=== PATIENT | male | born 1965 | race Caucasian/White ===

== ENCOUNTER 2020-06-30 08:42 | Outpatient (REF) | payer BC, SELFPAY ==
[2020-06-30 11:14] LABS: MANUAL DIFF FLAG NO
[2020-06-30 11:21] LABS: Basophils Absolute Auto 0.1 X10*3/uL (0.0-0.2); Basophils Percent Auto 0.8 % (0-2); Eosinophils Absolute Auto 0.5 X10*3/uL (0.0-0.4); Eosinophils Percent Auto 4.6 % (0-4); Hemoglobin 14.6 g/dl (14.0-18.0); Imm Gran Abs Auto 0.02 X10*3/uL (0.00-0.03); Imm Gran Pct Auto 0.2 % (0.0-0.4); Lymphocytes Absolute Auto 1.2 X10*3/uL (1.2-4.9); Lymphocytes Percent Auto 11.8 % (20-40); Mean Corpuscular HGB Conc 33.2 g/dl (31.0-36.0); Mean Corpuscular Hemoglobin 29.1 pg (27.0-33.0); Mean Corpuscular Volume 87.6 fL (80-98); Mean Platelet Volume 9.8 fL (9.4-12.4); Monocytes Absolute Auto 0.8 X10*3/uL (0.1-1.2); Monocytes Percent Auto 7.3 % (2-11); Neutrophils Absolute Auto 7.7 X10*3/uL (2.0-8.3); Neutrophils Percent Auto 75.3 % (45-73); Platelet Count 390 X10*3/uL (160-400); Red Blood Count 5.02 X10*6/uL (4.60-5.80); Red Cell Distribution Width 12.7 % (11.0-16.0); White Blood Count 10.2 X10*3/uL (4.8-10.8)
[2020-06-30 11:36] LABS: Alanine Aminotransferase 30 U/L (0-40); Albumin Level 4.3 g/dL (3.5-5.0); Alkaline Phosphatase 102 U/L (39-117); Aspartate Amino Transferase 18 U/L (5-37); Bilirubin Direct 0.4 mg/dL (0.0-0.5); Bilirubin Total 0.8 mg/dL (0.0-1.0); Blood Urea Nitrogen 12 mg/dL (9-16); Estimated Glomerular Filt Rate > 60
== END 2020-06-30 08:43 | disposition home or self-care (01) ==
LOC: HO.HMGCLDS 08:42
PROVIDERS: PCP Internal Medicine; Visit Provider Physician Assistant
DX: G35 Multiple sclerosis (principal)
CPT/HCPCS: 36415; 80076; 82565; 84520; 85025

== ENCOUNTER 2021-01-15 10:29 | Outpatient (REF) | payer BC, SELFPAY ==
[2021-01-15 11:12] LABS: Estimated Average Glucose 148 mg/dL; Hemoglobin A1c % 6.8 %
[2021-01-15 11:46] LABS: Alanine Aminotransferase 34 U/L (0-40); Albumin Level 4.4 g/dL (3.5-5.0); Alkaline Phosphatase 89 U/L (39-117); Aspartate Amino Transferase 20 U/L (5-37); Bilirubin Direct 0.4 mg/dL (0.0-0.5); Bilirubin Total 1.1 mg/dL (0.0-1.0); Cholesterol 164 mg/dL; Glucose Fasting 109 mg/dL (60-99); HDL Cholesterol 36 mg/dL; LDL Cholesterol Calculated 90 mg/dl; Total Protein 7.1 g/dL (6.5-8.0); Triglycerides 191 mg/dL
[2021-01-15 11:51] LABS: Reflex LDLD? No
== END 2021-01-15 10:30 | disposition home or self-care (01) ==
LOC: HO.LNP 10:29
PROVIDERS: Visit Provider Internal Medicine
DX: E11.9 Type 2 diabetes mellitus without complications (principal); E78.00 Pure hypercholesterolemia, unspecified
CPT/HCPCS: 80061; 80076; 82947; 83036

== ENCOUNTER 2021-01-28 10:00 | Outpatient (REF) | payer BC, SELFPAY ==
[2021-01-28 11:30] LABS: MANUAL DIFF FLAG NO
[2021-01-28 11:41] LABS: Basophils Absolute Auto 0.1 X10*3/uL (0.0-0.2); Basophils Percent Auto 0.9 % (0-2); Eosinophils Absolute Auto 0.4 X10*3/uL (0.0-0.4); Eosinophils Percent Auto 5.8 % (0-4); Hematocrit 44.7 % (42-52); Hemoglobin 14.9 g/dl (14.0-18.0); Imm Gran Abs Auto 0.03 X10*3/uL (0.00-0.03); Imm Gran Pct Auto 0.4 % (0.0-0.4); Lymphocytes Absolute Auto 1.4 X10*3/uL (1.2-4.9); Lymphocytes Percent Auto 18.1 % (20-40); Mean Corpuscular HGB Conc 33.3 g/dl (31.0-36.0); Mean Corpuscular Hemoglobin 28.7 pg (27.0-33.0); Mean Corpuscular Volume 86.1 fL (80-98); Mean Platelet Volume 9.6 fL (9.4-12.4); Monocytes Absolute Auto 0.6 X10*3/uL (0.1-1.2); Monocytes Percent Auto 7.5 % (2-11); Neutrophils Percent Auto 67.3 % (45-73); Platelet Count 393 X10*3/uL (160-400); Red Blood Count 5.19 X10*6/uL (4.60-5.80); Red Cell Distribution Width 12.7 % (11.0-16.0); White Blood Count 7.5 X10*3/uL (4.8-10.8)
[2021-01-28 12:17] LABS: Alanine Aminotransferase 28 U/L (0-40); Albumin Level 4.5 g/dL (3.5-5.0); Alkaline Phosphatase 87 U/L (39-117); Aspartate Amino Transferase 19 U/L (5-37); Bilirubin Direct 0.4 mg/dL (0.0-0.5); Bilirubin Total 1.1 mg/dL (0.0-1.0); Blood Urea Nitrogen 22 mg/dL (9-16); Estimated Glomerular Filt Rate > 60; Total Protein 7.2 g/dL (6.5-8.0)
[2021-01-29 14:21] LABS: Immunoglobulin A 236 mg/dL (47-310); Immunoglobulin G 859 mg/dL (600-1640)
== END 2021-01-28 10:01 | disposition home or self-care (01) ==
LOC: HO.HMGCLDS 10:00
PROVIDERS: PCP Internal Medicine; Visit Provider Physician Assistant
DX: G35 Multiple sclerosis (principal); R94.5 Abnormal results of liver function studies; Z51.81 Encounter for therapeutic drug level monitoring
CPT/HCPCS: 36415; 80076; 82565; 82784; 84520; 85025

== ENCOUNTER 2021-07-14 10:32 | Outpatient (REF) | payer BC, SELFPAY ==
[2021-07-14 10:37] LABS: MANUAL DIFF FLAG NO
[2021-07-14 10:59] LABS: Basophils Absolute Auto 0.1 X10*3/uL (0.0-0.2); Eosinophils Absolute Auto 0.7 X10*3/uL (0.0-0.4); Eosinophils Percent Auto 7.7 % (0-4); Hematocrit 41.7 % (42.0-52.0); Hemoglobin 13.9 g/dl (14.0-18.0); Imm Gran Abs Auto 0.02 X10*3/uL (0.00-0.03); Imm Gran Pct Auto 0.2 % (0.0-0.4); Lymphocytes Absolute Auto 1.2 X10*3/uL (1.2-4.9); Lymphocytes Percent Auto 14.8 % (20-40); Mean Corpuscular HGB Conc 33.3 g/dl (31.0-36.0); Mean Corpuscular Hemoglobin 29.3 pg (27.0-33.0); Mean Corpuscular Volume 87.8 fL (80.0-98.0); Mean Platelet Volume 10.4 fL (9.4-12.4); Monocytes Absolute Auto 0.7 X10*3/uL (0.1-1.2); Monocytes Percent Auto 7.7 % (2-11); Neutrophils Absolute Auto 5.76 x10*3/uL (2.0-8.3); Neutrophils Percent Auto 68.6 % (45-73); Platelet Count 333 X10*3/uL (160-400); Red Blood Count 4.75 X10*6/uL (4.60-5.80); Red Cell Distribution Width 12.6 % (11.0-16.0); White Blood Count 8.4 X10*3/uL (4.8-10.8)
[2021-07-14 11:15] LABS: Estimated Average Glucose 128 mg/dL; Hemoglobin A1c % 6.1 %
[2021-07-14 11:24] LABS: Appearance Urine CLEAR; Color Urine YELLOW; Glucose Urine UA NEG (NEG); Leukocyte Esterase Urine NEG (NEG); Nitrite Urine NEG (NEG); Urine Blood NEG (NEG); Urine Ketones NEG (NEG); Urine Protein NEG (NEG-TRACE)
[2021-07-14 11:41] LABS: Alanine Aminotransferase 23 U/L (0-40); Albumin Level 4.4 g/dL (3.5-5.0); Alkaline Phosphatase 85 U/L (39-117); Anion Gap 13 (12-20); Aspartate Amino Transferase 16 U/L (5-37); Bilirubin Total 0.7 mg/dL (0.0-1.0); Blood Urea Nitrogen 19 mg/dL (9-16); Calcium 9.5 mg/dL (8.4-10.2); Carbon Dioxide 30 mmol/L (22-29); Chloride 102 mmol/L (96-108); Cholesterol 157 mg/dL; Estimated Glomerular Filt Rate > 60; Glucose Fasting 111 mg/dL (60-99); HDL Cholesterol 35 mg/dL; LDL Cholesterol Calculated 91 mg/dl; Potassium 3.9 mmol/L (3.3-5.1); Sodium 141 mmol/L (135-145); Triglycerides 155 mg/dL
[2021-07-14 11:52] LABS: Reflex LDLD? No
[2021-07-14 12:04] LABS: Vitamin D 25-OH Total 51.3 ng/mL (>30)
[2021-07-14 12:08] LABS: PSA,Total (Free>4and<10) 0.47 ng/mL (0.00-4.00)
[2021-07-14 12:15] LABS: Creatinine Urine 113.61 mg/dL; Microalbum/Creatinine Ratio Ur 4.4 ug/mg cr
== END 2021-07-14 10:33 | disposition home or self-care (01) ==
LOC: HO.LNP 10:32
PROVIDERS: Visit Provider Internal Medicine
DX: Z00.00 Encounter for general adult medical examination without abnormal findings (principal); I10 Essential (primary) hypertension; G35 Multiple sclerosis; E78.00 Pure hypercholesterolemia, unspecified; E55.9 Vitamin D deficiency, unspecified; E11.9 Type 2 diabetes mellitus without complications; Z12.5 Encounter for screening for malignant neoplasm of prostate
CPT/HCPCS: 80053; 80061; 81003; 82043; 82306; 83036; 84153; 85025

== ENCOUNTER 2022-01-12 10:21 | Outpatient (REF) | payer BC, SELFPAY ==
[2022-01-12 11:37] LABS: Estimated Average Glucose 137 mg/dL; Hemoglobin A1c % 6.4 %
[2022-01-12 11:57] LABS: Alanine Aminotransferase 25 U/L (0-40); Albumin Level 4.1 g/dL (3.5-5.0); Alkaline Phosphatase 81 U/L (39-117); Aspartate Amino Transferase 16 U/L (5-37); Bilirubin Direct 0.3 mg/dL (0.0-0.5); Bilirubin Total 0.7 mg/dL (0.0-1.0); Cholesterol 168 mg/dL; Glucose Fasting 124 mg/dL (60-99); HDL Cholesterol 32 mg/dL; LDL Cholesterol Calculated 99 mg/dl; Total Protein 6.9 g/dL (6.5-8.0); Triglycerides 188 mg/dL
[2022-01-12 12:10] LABS: Reflex LDLD? No
== END 2022-01-12 10:22 | disposition home or self-care (01) ==
LOC: HO.LNP 10:21
PROVIDERS: PCP Internal Medicine; Visit Provider Internal Medicine
DX: E78.00 Pure hypercholesterolemia, unspecified (principal); E11.9 Type 2 diabetes mellitus without complications
CPT/HCPCS: 80061; 80076; 82947; 83036

== ENCOUNTER 2022-07-22 10:25 | Outpatient (REF) | payer OTHER, SELFPAY ==
[2022-07-22 10:31] LABS: MANUAL DIFF FLAG NO
[2022-07-22 11:09] LABS: Appearance Urine Clear; Basophils Percent Auto 0.4 % (0-2); Color Urine Yellow; Eosinophils Absolute Auto 0.5 X10*3/uL (0.0-0.4); Eosinophils Percent Auto 6.5 % (0-4); Glucose Urine UA Negative (Negative); Hematocrit 41.7 % (42.0-52.0); Hemoglobin 13.9 g/dl (14.0-18.0); Imm Gran Abs Auto 0.03 X10*3/uL (0.00-0.03); Imm Gran Pct Auto 0.4 % (0.0-0.4); Leukocyte Esterase Urine Negative (Negative); Lymphocytes Absolute Auto 1.5 X10*3/uL (1.2-4.9); Lymphocytes Percent Auto 22.2 % (20-40); Mean Corpuscular HGB Conc 33.3 g/dl (31.0-36.0); Mean Corpuscular Hemoglobin 28.9 pg (27.0-33.0); Mean Corpuscular Volume 86.7 fL (80.0-98.0); Mean Platelet Volume 9.8 fL (9.4-12.4); Monocytes Absolute Auto 0.7 X10*3/uL (0.1-1.2); Monocytes Percent Auto 10.4 % (2-11); Neutrophils Absolute Auto 4.2 x10*3/uL (2.0-8.3); Neutrophils Percent Auto 60.1 % (45-73); Nitrite Urine Negative (Negative); PH 5.5 (5.0-9.0); Platelet Count 358 X10*3/uL (160-400); Red Blood Count 4.81 X10*6/uL (4.60-5.80); Red Cell Distribution Width 12.7 % (11.0-16.0); Specific Gravity - Urine 1.025 (1.005-1.025); Urine Blood Negative (Negative); Urine Ketones Trace mg/dL (Negative); Urine Protein Negative (Neg-Trace); White Blood Count 6.9 X10*3/uL (4.8-10.8)
[2022-07-22 11:12] LABS: Alanine Aminotransferase 28 U/L (0-40); Albumin Level 4.2 g/dL (3.5-5.0); Alkaline Phosphatase 78 U/L (39-117); Anion Gap 16 (12-20); Aspartate Amino Transferase 16 U/L (5-37); Bacteria Urine None Seen (None Seen); Bilirubin Total 0.6 mg/dL (0.0-1.0); Blood Urea Nitrogen 17 mg/dL (9-16); Calcium 8.8 mg/dL (8.4-10.2); Carbon Dioxide 27 mmol/L (22-29); Chloride 103 mmol/L (96-108); Cholesterol 194 mg/dL; Estimated Glomerular Filt Rate > 60; Glucose Fasting 148 mg/dL (60-99); HDL Cholesterol 33 mg/dL; Hyaline Casts Urine 0-2 /LPF (0-2); LDL Cholesterol Calculated 99 mg/dl; Potassium 3.8 mmol/L (3.3-5.1); RBC Urine 0-2 /HPF (0-2); Sodium 142 mmol/L (135-145); Squamous Epithelial Cell Urine 0-2 /HPF (0-2); Total Protein 6.9 g/dL (6.5-8.0); Triglycerides 313 mg/dL; WBC Urine 0-5 /HPF (0-5)
[2022-07-22 11:50] LABS: PSA,Total (Free>4and<10) 0.68 ng/mL (0.00-4.00)
[2022-07-22 13:27] LABS: Vitamin D 25-OH Total 46.7 ng/mL (>30)
== END 2022-07-22 10:26 | disposition home or self-care (01) ==
LOC: HO.LNP 10:25
PROVIDERS: Visit Provider Internal Medicine
DX: Z00.00 Encounter for general adult medical examination without abnormal findings (principal); Z12.5 Encounter for screening for malignant neoplasm of prostate; I10 Essential (primary) hypertension; G35 Multiple sclerosis; E55.9 Vitamin D deficiency, unspecified; E78.00 Pure hypercholesterolemia, unspecified
CPT/HCPCS: 80053; 80061; 81001; 82306; 84153; 85025

== ENCOUNTER 2023-01-28 09:18 | Outpatient (REF) | payer OTHER, SELFPAY ==
[2023-01-28 10:33] LABS: Estimated Average Glucose 134 mg/dL; Hemoglobin A1c % 6.3 %
[2023-01-28 10:37] LABS: Alanine Aminotransferase 27 U/L (0-40); Albumin Level 4.3 g/dL (3.5-5.0); Alkaline Phosphatase 98 U/L (39-117); Aspartate Amino Transferase 19 U/L (5-37); Bilirubin Direct 0.2 mg/dL (0.0-0.5); Bilirubin Total 0.8 mg/dL (0.0-1.0); Cholesterol 140 mg/dL; Glucose Fasting 119 mg/dL (60-99); HDL Cholesterol 34 mg/dL; LDL Cholesterol Calculated 84 mg/dl; Total Protein 6.9 g/dL (6.5-8.0); Triglycerides 114 mg/dL
[2023-01-28 11:38] LABS: Reflex LDLD? No
== END 2023-01-28 09:19 | disposition home or self-care (01) ==
LOC: HO.LNP 09:18
PROVIDERS: Visit Provider Internal Medicine
DX: E78.00 Pure hypercholesterolemia, unspecified (principal); E11.9 Type 2 diabetes mellitus without complications
CPT/HCPCS: 80061; 80076; 82947; 83036

== ENCOUNTER 2023-09-30 13:42 | Outpatient (AMB) | payer OTHER, SELFPAY ==
--- NOTE | 2023-09-30 13:49 | MHC.PC.OV ---
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 Required: No Accompanied by: Self / Same As Patient Allergies lisinopril [LISINOPRIL] Allergy (Mild, Verified 09/30/23 13:53) SCRATCHY THROAT teriflunomide Allergy (Mild, Verified 09/30/23 13:53) Rash Medication List - Last Reconciled 09/30/23 by Erlinda Sheest MD atorvastatin 40 mg PO DAILY bupropion HCl 150 mg PO QAM cholecalciferol (vitamin D3) 4,000 units PO DAILY citalopram 40 mg PO DAILY irbesartan-hydrochlorothiazide 150-12.5 mg 0.5 tabs PO DAILY melatonin 5 mg PO BEDTIME PRN metformin 500 mg PO BID ocrelizumab (Ocrevus) 600 mg IV [id number] ocrelizumab (Ocrevus) 600 mg IV P0UTIAIL Tobacco use date assessed: 09/30/23 Dental Screening Dental Screen Date: 09/30/23 Did you have a dental visit in the last 12 months?: No Did you have a dental problem in the last 6 months where you did not have access to dental care?: No Was dental information given to patient?: Yes HPI New patient-req physical HPI Details 58-year-old obese male with a history of relapsing remitting multiple sclerosis diabetes mellitus hypertension hypercholesterolemia coming in for the 1st time. Patient follows up with Dr. Dey and a treated with Breanna now on Ocrevus. Last blood work showing LDL of 84 A1c of 6.12 Jan 2023. vasovagal when giving blood . buzz ing 2 months , walking up stairs 6 months sob. R foot drop, , neuropathy R leg, double vision. ' [facility] Medical History (Updated 09/30/23 @ 19:02 by Erlinda Sheets MD) Esophageal bleed, non-variceal Social History (Updated 09/30/23 @ 14:16 by Erlinda Sheets MD) Housing: House Alcohol intake: never Patient Tobacco Use Status: Never used Tobacco e-Cigarette/Vaping Use: Never Used service: No Current occupational status: retired and disabled Cognitive needs: No Hearing needs: No Vision needs: Yes Questionnaire PHQ-9 Over the last 2 weeks, how often have you been bothered by any of the following problems? 1. Little interest or pleasure in doing things: nearly every day 2. Feeling down, depressed, or hopeless: more than half the days 3. Trouble falling or staying asleep, or sleeping too much: nearly every day 4. Feeling tired or having little energy: nearly every day 5. Poor appetite or overeating: several days 6. Feeling bad about yourself - or that you are a failure or have let yourself or your family down: several days 7. Trouble concentrating on things, such as reading the newspaper or watching television: more than half the days 8. Moving or speaking so slowly that other people could have noticed. Or the opposite - being so fidgety or restless that you have been moving around a lot more than usual: nearly every day 9. Thoughts that you would be better off or of hurting yourself in some way: several days Total score: 19 Depression Screening Interpretation: Positive Depression Screening Done: Yes 54561 - PHQ-9 Billing: Yes Source: Developed by Drs. Esvin Roman, Denise Zarate, Nam Ku and colleagues, with an educational jose francisco from [employer]. Thrive Questionnaire Date Thrive assessed: 09/30/23 I am a: Patient What is your living situation today?: I have a steady place to live Within the past 12 months, did the food you bought not last and you didn't have the money to get more?: Never true Within the past 12 months, did you worry whether your food would run out before you got money to buy more?: Never true Do you have trouble paying for medicines?: No Do you have trouble getting transportation to medical appointments?: No Do you have trouble paying your heating and electricity bill?: No Do you have trouble taking care of your child, family member or friend?: No Do you have trouble with day-to-day activities such as bathing, preparing meals, shopping, managing finances, etc.?: No Are you currently unemployed and looking for a job?: No Are you interested in more education?: No Please select the resources that you would like help with: None Currently or been in a relationship where the following occur: no concerns reported THRIVE Score: 0 AUDIT C Alcohol Use Questionnaire (AUDIT-C) 1. How often do you have a drink containing alcohol?: Never 3. How often do you have six or more drinks on one occasion?: Never Total Score: 0 NISHA-7 AMB Questionnaire NISHA-7 Date NISHA - 7 assessed: 09/30/23 Feeling nervous, anxious, or on edge: 3 = Nearly every day Not being able to stop or control worryin = Several days Worrying too much about different things: 2 = More than half the days Trouble relaxin = More than half the days Being so restless that it is hard to sit still: 2 = More than half the days Becoming easily annoyed or irritable: 3 = Nearly every day Feeling afraid as if something awful might happen: 1 = Several days Total NISHA-7 score (0-4 normal; 5-9 mild; 10-14 moderate; 15-21 severe): 14 Source: Developed by Drs. Esvin Roman, Denise Zarate, Nam Ku and colleagues, with an educational jose francisco from [employer]. NISHA-7 Assessment Billing NISHA-7 Assessment Tool: NISHA-7 Assessment 62822 Review of Systems Const Denies poor appetite and Denies weakness Eyes Denies no additional complaints ENT Reports Normal hearing present, Denies dizziness, Denies nasal congestion, Denies tinnitus and Denies sore throat Card Denies chest pain, Denies syncope, Denies rapid heart rate and Denies dyspnea Resp Denies cough and Denies dyspnea GI Denies change in stool character, Reports constipation, Denies diarrhea, Denies nausea and Denies vomiting Denies dysuria and Denies urinary frequency Neuro Reports Normal hearing present, Denies confusion, Denies dizziness, Denies syncope and Denies weakness Psych Denies confusion Physical exam (Primary Care) Vital Signs: Last Vital Signs Pulse 75 09/30/23 13:50 BP 120/82 09/30/23 13:50 Pulse Ox 95 09/30/23 13:50 Oxygen Delivery Method Room Air 09/30/23 13:50 BMI result Body Mass Index 31.6 Tobacco/Smoking Status: Tobacco use Status Tobacco use date assessed 09/30/23 09/30/23 14:00 Patient Tobacco Use Status Never used Tobacco 09/30/23 14:16 e-Cigarette/Vaping Use Never Used 09/30/23 14:16 PHQ-9: PHQ-9 Score PHQ-9: Total score 09/30/23 18:59 Depression Screening Interpretation: Positive Thrive Assessment: Date of Thrive Assessment Date Thrive assessed 09/30/23 09/30/23 14:04 Currently or been in a relationship where the following occur: no concerns reported Const General: No confusion Orientation/consciousness: No confusion HENMT Head: Yes normocephalic Ears: external ears normal and TM's normal bilaterally Face and sinus: Yes normal facial exam Mouth: moist mucous membranes Throat: Yes tonsils normal Eyes Conjunctivae: conjunctivae normal Pupils: Equal, round and reactive pupils present and Pupil accommodation reflex normal Direct Ophthalmoscopy: normal light reflex Neck Neck: No lymphadenopathy Thyroid: Thyroid normal Chest Chest palpation & inspection: normal inspection of the chest Resp Effort & Inspection: normal respiratory effort and no audible wheezes Auscultation: clear to auscultation bilaterally, no crackles, no wheezes and lung sounds not diminished Cardio Rate: regular rate Rhythm: regular rhythm Peripheral pulses: radial pulses present and dorsalis pedis present GI Other: guaiac stools negative prostrate N Palpation (GI): no masses Auscultation: normal bowel sounds and normoactive bowel sounds Male General Exam: Yes normal external exam Skin General skin exam: no rashes or lesions noted Rashes: no rashes Neuro Other: R foot cannot dorsiflex General: No confusion Cranial nerves: Yes Equal, round and reactive pupils present and Yes Normal hearing present Cognition (Neuro): normal cognition Gait exam (Neuro): Normal gait present Motor exam (neuro): 5/5 motor strength present throughout Deep tendon reflexes (DTR's): Right brachioradialis reflex intensity grade: 2+, Left brachioradialis reflex intensity grade: 2+, Right patellar reflex intensity grade: 2+ and Left patellar reflex intensity grade: 2+ Extrem Other: pedal pulses good , pinprick L Normal R has areas of sensory deficit General: No edema Results AMB Hemoglobin A1c AMB Hemoglobin A1c 7.0 % Last Edit by CROW Woodruff on 09/30/23 14:15 Immunizations Boostrix Tdap 2.5 Lf unit-8 mcg-5 Lf/0.5 mL intramuscular syringe Performing Provider: Erlinda Sheets MD [facility] Administered by: CROW Woodruff on 09/30/23 15:27 Dose Route Admin Location Dispensed Lot Number Expiration Date NDC [employer] 0.5 mL IM Left Deltoid 0.5 mL [id number] 08/17/25 04258-015-28 [employer] VIS Given Date VIS Provided VIS Publication Date 09/30/23 Single Vaccine 21 Eligibility Eligibility Date Funding Source Not [facility] Eligible 09/30/23 Private Results Reviewed Results Reviewed: Laboratory Last Values Hgb A1c (Clinic) 7.0 % (4.0-6.0) H 09/30/23 14:15 Assessment and Plan Assessment & Plan (1) Dysthymia: Comment: [facility] Code(s): F34.1 - Dysthymic disorder Plan: Referral to [facility] and continuing with present medication (2) Type 2 diabetes mellitus with hyperglycemia: Code(s): E11.65 - Type 2 diabetes mellitus with hyperglycemia Qualifiers: 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 Hemoglobin A1c goal of less than 6.5 (3) Hypertension: Code(s): I10 - Essential (primary) hypertension Qualifiers: Hypertension type: primary hypertension Qualified Code(s): I10 - Essential (primary) hypertension Plan: Continue with blood pressure medication. Decrease salt intake and exercise (4) Hypercholesterolemia: Code(s): E78.00 - Pure hypercholesterolemia, unspecified Plan: Avoid fried foods, chicken skin, eggs, butter margarine, pastries and meat. Be it pork or beef they have a lot of cholesterol LDL goal of less than 100 and triglyceride of less than 150. January 2023 last blood work (5) Relapsing remitting multiple sclerosis: Code(s): G35 - Multiple sclerosis Plan: Continue follow-up with Neurology. On Ocrevus (6) Obstructive sleep apnea: Comment: cannot tolerate CPAP Code(s): G47.33 - Obstructive sleep apnea (adult) (pediatric) Plan: Discussed importance of treating obstructive sleep apnea and will refer to sleep Medicine (7) Colon cancer screening: Code(s): Z12.11 - Encounter for screening for malignant neoplasm of colon Plan: Cologuard tested requested. Colonoscopy declined (8) Tinnitus: Code(s): H93.19 - Tinnitus, unspecified ear Qualifiers: Laterality: bilateral Qualified Code(s): H93.13 - Tinnitus, bilateral Plan: Referral for hearing test Orders: Orders AMB Hemoglobin A1c Today E11.65 - Type 2 diabetes mellitus with hyperglycemia TDaP Immunization Today Z23 - Encounter for immunization Referrals Sleep Medicine Referral G47.33 - Obstructive sleep apnea (adult) (pediatric) Speech and Hearing Referral H93.19 - Tinnitus, unspecified ear Psychiatry Referral F34.1 - Dysthymic disorder Ophthalmology Referral E11.65 - Type 2 diabetes mellitus with hyperglycemia Cologuard Test Z12.11 - Encounter for screening for malignant neoplasm of colon Coding Level of Care Code New Pt Prev Care 40-64y(04649) Diagnoses Dysthymia F34.1 Type 2 diabetes mellitus with hyperglycemia, without long-term current use of insulin E11.65 Diabetes mellitus group home insulin use: without group home use Primary hypertension I10 Hypertension type: primary hypertension Hypercholesterolemia E78.00 Relapsing remitting multiple sclerosis G35 Obstructive sleep apnea G47.33 Colon cancer screening Z12.11 Tinnitus of both ears H93.13 Laterality: bilateral Additional Codes NISHA-7 Assessment Billing - NISHA-7 Assessment Tool: NISHA-7 Assessment 01800 ([id number])
[2023-09-30 13:50] VITALS: BP 120/82; PULSE 75; O2SAT 95; BMI 31.6
== END 2023-09-30 14:50 | disposition home or self-care (01) ==
PROVIDERS: PCP Internal Medicine; Visit Provider Internal Medicine
DX: Z00.00 Encounter for general adult medical examination without abnormal findings (principal); E11.65 Type 2 diabetes mellitus with hyperglycemia; G35 Multiple sclerosis; F34.1 Dysthymic disorder; Z23 Encounter for immunization; I10 Essential (primary) hypertension; E78.00 Pure hypercholesterolemia, unspecified; G47.33 Obstructive sleep apnea (adult) (pediatric); H93.13 Tinnitus, bilateral
CPT/HCPCS: 83036; 90471; 90715; 96127; 99386

== ENCOUNTER 2023-11-28 12:55 | Outpatient (REF) | payer OTHER, SELFPAY | END 2023-11-28 12:56 | disposition home or self-care (01) | LOC: HO.SH 12:55 | PROVIDERS: PCP Internal Medicine; Visit Provider Internal Medicine | DX: Z13.89 Encounter for screening for other disorder (principal) ==

== ENCOUNTER 2023-12-01 12:47 | Outpatient (REF) | payer OTHER, SELFPAY | END 2023-12-01 12:48 | disposition home or self-care (01) | LOC: HO.SH 12:47 | PROVIDERS: Visit Provider Internal Medicine | DX: Z01.118 Encounter for examination of ears and hearing with other abnormal findings (principal); H90.3 Sensorineural hearing loss, bilateral; H93.13 Tinnitus, bilateral | CPT/HCPCS: 92557; 92567; 92588 ==

== ENCOUNTER 2024-01-11 08:03 | Outpatient (AMB) | payer OTHER, SELFPAY ==
[2024-01-11 08:08] VITALS: BP 112/70; PULSE 84; O2SAT 98; BMI 31.2
--- NOTE | 2024-01-11 08:08 | MHC.PC.OV ---
Vital Signs 01/11/24 08:08 Height 5 ft 8 in Weight 205 lb BMI 31.2 BP 112/70 Blood Pressure Location Lt brachial Position Sitting Pulse 84 Pulse Source Pulse Oximeter Pulse Oximetry (%) 98 Oxygen Delivery Method Room Air Intake Visit Reasons: DM Allergies lisinopril [LISINOPRIL] Allergy (Mild, Verified 01/11/24 08:09) SCRATCHY THROAT teriflunomide Allergy (Mild, Verified 01/11/24 08:09) Rash Tobacco use date assessed: 01/11/24 Dental Screening Dental Screen Date: 01/11/24 Did you have a dental visit in the last 12 months?: Yes Did you have a dental problem in the last 6 months where you did not have access to dental care?: No Was dental information given to patient?: Patient has dentist HPI DM HPI Details 58-year-old obese male with diabetes mellitus hypertension hypercholesterolemia multiple sclerosis obstructive sleep apnea coming in for follow-up. Last seen in September 2023 patient was advised to use Cologuard test. This was done in December 30-patient did have a hearing test. Received also YUE I can notes. fal in oct R chest pain better has not botthere, no sycnope , no sob. R achilles pain 2 weeks ago states has been building a shed - seen neuro - was given AFO brace and is better, ussing a cane to walk [facility] Medical History (Updated 01/11/24 @ 08:19 by Erlinda Sheets MD) Tinnitus Colon cancer screening Esophageal bleed, non-variceal Social History (Updated 09/30/23 @ 14:16 by Erlinda Sheets MD) Housing: House Alcohol intake: never Patient Tobacco Use Status: Never used Tobacco Tobacco use type: Cigarette e-Cigarette/Vaping Use: Never Used Second Hand Smoke Exposure: No service: No Current occupational status: retired and disabled Cognitive needs: No Hearing needs: No Vision needs: Yes Questionnaire PHQ-9 Over the last 2 weeks, how often have you been bothered by any of the following problems? 1. Little interest or pleasure in doing things: nearly every day 2. Feeling down, depressed, or hopeless: more than half the days 3. Trouble falling or staying asleep, or sleeping too much: nearly every day 4. Feeling tired or having little energy: nearly every day 5. Poor appetite or overeating: several days 6. Feeling bad about yourself - or that you are a failure or have let yourself or your family down: several days 7. Trouble concentrating on things, such as reading the newspaper or watching television: more than half the days 8. Moving or speaking so slowly that other people could have noticed. Or the opposite - being so fidgety or restless that you have been moving around a lot more than usual: nearly every day 9. Thoughts that you would be better off or of hurting yourself in some way: several days Total score: 19 Depression Screening Interpretation: Positive Depression Screening Done: Yes 83219 - PHQ-9 Billing: Yes Source: Developed by Drs. Esvin Roman, Denise Zarate, Nam Ku and colleagues, with an educational jose francisco from [employer]. Thrive Questionnaire Date Thrive assessed: 01/11/24 I am a: Patient What is your living situation today?: I have a steady place to live Within the past 12 months, did the food you bought not last and you didn't have the money to get more?: Never true Within the past 12 months, did you worry whether your food would run out before you got money to buy more?: Never true Do you have trouble paying for medicines?: No Do you have trouble getting transportation to medical appointments?: No Do you have trouble paying your heating and electricity bill?: No Do you have trouble taking care of your child, family member or friend?: No Do you have trouble with day-to-day activities such as bathing, preparing meals, shopping, managing finances, etc.?: No Are you currently unemployed and looking for a job?: No Are you interested in more education?: No Please select the resources that you would like help with: None Currently or been in a relationship where the following occur: no concerns reported THRIVE Score: 0 AUDIT C Alcohol Use Questionnaire (AUDIT-C) 1. How often do you have a drink containing alcohol?: Never 3. How often do you have six or more drinks on one occasion?: Never Total Score: 0 NISHA-7 AMB Questionnaire NISHA-7 Date NISHA - 7 assessed: 01/11/24 Feeling nervous, anxious, or on edge: 3 = Nearly every day Not being able to stop or control worryin = Several days Worrying too much about different things: 2 = More than half the days Trouble relaxin = More than half the days Being so restless that it is hard to sit still: 2 = More than half the days Becoming easily annoyed or irritable: 3 = Nearly every day Feeling afraid as if something awful might happen: 1 = Several days Total NISHA-7 score (0-4 normal; 5-9 mild; 10-14 moderate; 15-21 severe): 14 Source: Developed by Drs. Esvin Roman, Denise Zarate, Nam Ku and colleagues, with an educational jose francisco from [employer]. NISHA-7 Assessment Billing NISHA-7 Assessment Tool: NISHA-7 Assessment 79061 Fall Risk Assessment Fall Risk Assessment Fall risk assessment: 1 Fall in past year ([place]ell in park. Was assessed by EMT there. Did not go to ED. ) Physical exam (Primary Care) Vital Signs: Last Vital Signs Resp 84 H 01/11/24 08:08 BP 112/70 01/11/24 08:08 Pulse Ox 98 01/11/24 08:08 Oxygen Delivery Method Room Air 01/11/24 08:08 BMI result Body Mass Index 31.2 Tobacco/Smoking Status: Tobacco use Status Tobacco use date assessed 01/11/24 01/11/24 08:12 Patient Tobacco Use Status Never used Tobacco 01/11/24 08:12 Tobacco use type Cigarette 01/11/24 08:18 e-Cigarette/Vaping Use Never Used 01/11/24 08:12 PHQ-9: PHQ-9 Score PHQ-9: Total score 19 01/11/24 08:23 Depression Screening Interpretation: Positive Thrive Assessment: Date of Thrive Assessment Date Thrive assessed 01/11/24 01/11/24 08:12 Currently or been in a relationship where the following occur: no concerns reported Const General: alert; No acute distress Eyes Conjunctivae: conjunctivae normal Resp Auscultation: clear to auscultation bilaterally Cardio Rate: regular rate Rhythm: regular rhythm GI Inspection: Yes normal to inspection Extrem Other: Patient does have an AFO brace on the right ankle General: No edema Results AMB Hemoglobin A1c AMB Hemoglobin A1c 6.4 % Last Edit by Francine rBiceño CMA on 01/11/24 08:23 Results Reviewed Results Reviewed: Laboratory Last Values Hgb A1c (Clinic) 6.4 % (4.0-6.0) H 01/11/24 08:12 Assessment and Plan Assessment & Plan (1) Type 2 diabetes mellitus with hyperglycemia: Code(s): E11.65 - Type 2 diabetes mellitus with hyperglycemia Qualifiers: Diabetes mellitus senior living insulin use: without senior living use Qualified Code(s): E11.65 - Type 2 diabetes mellitus with hyperglycemia Plan: Decrease the amount of carbohydrate intake, pasta, bread, rice and potatoes are all sugar and that is aside from all the sweet stuff, remember that fruits are good but they are Sweet also. Hemoglobin A1c goal of less than 6.5. Patient on metformin 500 mg twice a day (2) Hypertension: Code(s): I10 - Essential (primary) hypertension Qualifiers: Hypertension type: primary hypertension Qualified Code(s): I10 - Essential (primary) hypertension Plan: Continue with blood pressure medication. Decrease salt intake and exercise on irbesartan hydrochlorothiazide 150/12.5 mg half a tablet once a day (3) Hypercholesterolemia: Code(s): E78.00 - Pure hypercholesterolemia, unspecified Plan: Avoid fried foods, chicken skin, eggs, butter margarine, pastries and meat. Be it pork or beef they have a lot of cholesterol LDL goal of less than 100 and triglyceride of less than 150 on atorvastatin 40 mg blood work requested. (4) Dysthymia: Comment: [facility] Code(s): F34.1 - Dysthymic disorder Plan: Continue with counseling and therapy on Celexa 40 mg once a day (5) Relapsing remitting multiple sclerosis: Code(s): G35 - Multiple sclerosis Plan: Patient is on Ocrevus but have not received any notes. He does follow-up. Orders: Orders AMB Hemoglobin A1c Today Z13.9 - Encounter for screening, unspecified Complete Blood Count Auto Diff Today E11.65 - Type 2 diabetes mellitus with hyperglycemia Comprehensive Met. Panel Today E11.65 - Type 2 diabetes mellitus with hyperglycemia Microalbumin, Random (w Creat) Today E11.65 - Type 2 diabetes mellitus with hyperglycemia Free T4 (Free Thyroxine) Today E11.65 - Type 2 diabetes mellitus with hyperglycemia Lipid Panel Today E11.65 - Type 2 diabetes mellitus with hyperglycemia, E78.00 - Pure hypercholesterolemia, unspecified Hemoglobin A1c Today E11.65 - Type 2 diabetes mellitus with hyperglycemia UA w Microscopic Today E11.65 - Type 2 diabetes mellitus with hyperglycemia Creatinine Urine Today E11.65 - Type 2 diabetes mellitus with hyperglycemia Thyroid Stimulating Hormone Today E11.65 - Type 2 diabetes mellitus with hyperglycemia Vitamin B12 and Folate Today E11.65 - Type 2 diabetes mellitus with hyperglycemia Prostate Specific Antigen Scr Today E11.65 - Type 2 diabetes mellitus with hyperglycemia Coding Level of Care Code Est Pt Level 4 (91689) Diagnoses Type 2 diabetes mellitus with hyperglycemia, without long-term current use of insulin E11.65 Diabetes mellitus manager intermediate insulin use: without senior living use Primary hypertension I10 Hypertension type: primary hypertension Hypercholesterolemia E78.00 Dysthymia F34.1 Relapsing remitting multiple sclerosis G35 Additional Codes NISHA-7 Assessment Billing - NISHA-7 Assessment Tool: NISHA-7 Assessment 56099 ([id number])
== END 2024-01-11 08:35 | disposition home or self-care (01) ==
PROVIDERS: PCP Internal Medicine; Visit Provider Internal Medicine
DX: E11.65 Type 2 diabetes mellitus with hyperglycemia (principal); G35 Multiple sclerosis; I10 Essential (primary) hypertension; E78.00 Pure hypercholesterolemia, unspecified; F34.1 Dysthymic disorder
CPT/HCPCS: 83036; 99214

== ENCOUNTER 2024-01-11 08:41 | Outpatient (REF) | payer OTHER, SELFPAY ==
[2024-01-11 09:06] LABS: MANUAL DIFF FLAG NO
[2024-01-11 09:14] LABS: Basophils Absolute Auto 0.1 X10*3/uL (0.0-0.2); Basophils Percent Auto 0.8 % (0-2); Eosinophils Absolute Auto 0.6 X10*3/uL (0.0-0.4); Eosinophils Percent Auto 6.4 % (0-4); Hematocrit 45.6 % (42.0-52.0); Hemoglobin 15.2 g/dl (14.0-18.0); Imm Gran Abs Auto 0.03 X10*3/uL (0.00-0.03); Imm Gran Pct Auto 0.3 % (0.0-0.4); Lymphocytes Absolute Auto 1.4 X10*3/uL (1.2-4.9); Lymphocytes Percent Auto 14.2 % (20-40); Mean Corpuscular HGB Conc 33.3 g/dl (31.0-36.0); Mean Corpuscular Hemoglobin 28.8 pg (27.0-33.0); Mean Corpuscular Volume 86.4 fL (80.0-98.0); Mean Platelet Volume 8.9 fL (9.4-12.4); Monocytes Absolute Auto 0.7 X10*3/uL (0.1-1.2); Monocytes Percent Auto 7.6 % (2-11); Neutrophils Absolute Auto 6.8 x10*3/uL (2.0-8.3); Neutrophils Percent Auto 70.7 % (45-73); Platelet Count 375 X10*3/uL (160-400); Red Blood Count 5.28 X10*6/uL (4.60-5.80); Red Cell Distribution Width 13.1 % (11.0-16.0); White Blood Count 9.6 X10*3/uL (4.8-10.8)
[2024-01-11 09:23] LABS: Estimated Average Glucose 143 mg/dL; Hemoglobin A1c % 6.6 % (<6.0)
[2024-01-11 09:56] LABS: Alanine Aminotransferase 28 U/L (0-40); Albumin Level 4.3 g/dL (3.5-5.0); Alkaline Phosphatase 99 U/L (39-117); Anion Gap 14 (12-20); Aspartate Amino Transferase 17 U/L (5-37); Bilirubin Total 0.5 mg/dL (0.0-1.0); Blood Urea Nitrogen 14 mg/dL (9-16); Calcium 9.6 mg/dL (8.4-10.2); Carbon Dioxide 27 mmol/L (22-29); Chloride 101 mmol/L (96-108); Cholesterol 148 mg/dL (<200); Estimated Glomerular Filt Rate > 60; Glucose Random 138 mg/dL (60-115); HDL Cholesterol 32 mg/dL (>40); LDL Cholesterol Calculated 77 mg/dL (<100); Potassium 4.2 mmol/L (3.3-5.1); Sodium 138 mmol/L (135-145); Total Protein 7.4 g/dL (6.5-8.0); Triglycerides 195 mg/dL (<150)
[2024-01-11 10:14] LABS: Free T4 (Free Thyroxine) 0.76 ng/dL (0.71-1.85); Thyroid Stimulating Hormone 1.74 uIU/mL (0.32-4.0)
[2024-01-11 10:37] LABS: Folate 4.7 ng/mL (> or = 4.0); Prostate Specific Antigen Scr 0.65 ng/mL (<0.05-4.0); Vitamin B12 384 pg/mL (200-900)
== END 2024-01-11 08:42 | disposition home or self-care (01) ==
LOC: HO.LAB 08:41
PROVIDERS: PCP Internal Medicine; Visit Provider Internal Medicine
DX: E11.65 Type 2 diabetes mellitus with hyperglycemia (principal); E78.00 Pure hypercholesterolemia, unspecified; Z12.5 Encounter for screening for malignant neoplasm of prostate
CPT/HCPCS: 36415; 80053; 80061; 81001; 82043; 82570; 82607; 82746; 83036; 84153; 84439; 84443; 85025

== ENCOUNTER 2024-01-19 08:37 | Outpatient (AMB) | payer OTHER, SELFPAY ==
--- NOTE | 2024-01-19 08:40 | MHC.OFFVIS ---
Vital Signs 01/19/24 08:51 Height 5 ft 8 in Weight 203 lb 2 oz BMI 30.9 BP 115/72 Blood Pressure Location Lt brachial Position Sitting Pulse 73 Pulse Source Pulse Oximeter Pulse Oximetry (%) 97 Oxygen Delivery Method Room Air Intake Visit Reasons: I-CONSERVATION SPECIALIST: HUNTER-CONF Intake Note: Patient presents for HUNTER. Difficulty falling asleep and staying asleep. Right drooped foot. Left knee in pain. Fatigue during the day. Allergies lisinopril [LISINOPRIL] Allergy (Mild, Verified 01/19/24 08:49) SCRATCHY THROAT teriflunomide Allergy (Mild, Verified 01/19/24 08:49) Rash Medication List - Last Reconciled 01/19/24 by DALIA Schuler atorvastatin 40 mg PO DAILY bupropion HCl XL 150 mg PO QAM cholecalciferol (vitamin D3) 4,000 units PO DAILY citalopram 40 mg PO DAILY irbesartan-hydrochlorothiazide 150-12.5 mg 0.5 tabs PO DAILY melatonin 5 mg PO BEDTIME PRN metformin 500 mg PO BID ocrelizumab (Ocrevus) 600 mg IV [id number] HPI Comments Details: Right-handed 58-yr-old male presents for evaluation of his obstructive sleep apnea. Pt reports he was diagnosed w/ sleep apnea over 10 years ago. He has not used his VPAP- Restraxx S9 System Resmed (85836)device in 10 yrs.His last sleep study was a couple of years ago, but he did not restart PAP tx at that time. Pt describes his initial MS s/s as right calf tingling, diplopia, which he states has reolved. However, he continues to have right foot drop, falls- more so when not wearing RLE AFO, and fatigue. f/b [facility]. He has tried Ampyra for the fatigue, but this was not helpful. He endorses difficulty falling asleep and staying asleep- wake sup 3 x's per night, snoring, nocturia, excessive daytime sleepiness na dfatigue, daytime naps, nocturnal restlessness. He also endorses hallucinations- seeing little animals run across the floor, which he knows are not real. Denies nocturnal hallucinations, sleep paralysis, hallucinations or vivid dreams, parasomnias, eunuresis. Denies usual leg cramps, spasticity. [facility] Medical History (Updated 01/19/24 @ 09:24 by DALIA Schuler) Tinnitus Colon cancer screening Esophageal bleed, non-variceal Social History Housing: House Alcohol intake: never Patient Tobacco Use Status: Never used Tobacco Tobacco use type: Cigarette e-Cigarette/Vaping Use: Never Used Second Hand Smoke Exposure: No service: No Current occupational status: retired and disabled Cognitive needs: No Hearing needs: No Vision needs: Yes Review of Systems Const All systems reviewed & are unremarkable except as noted in HPI and below Physical Exam Vital Signs: Last Vital Signs Pulse 73 01/19/24 08:51 BP 115/72 01/19/24 08:51 Pulse Ox 97 01/19/24 08:51 Oxygen Delivery Method Room Air 01/19/24 08:51 BMI result Body Mass Index 30.9 Const General: cooperative and no acute distress Orientation/consciousness: patient oriented x3 HEENT Head: Yes normocephalic Resp Effort & Inspection: normal respiratory effort and able to speak in complete sentences Neuro Other: Stands slowly, RLE high step w/ AFO on, steady w/ cane. General: patient oriented x3 and CN's II-XI intact bilaterally Psych Appearance: grossly normal Mental Status: mental status grossly normal Affect: normal affect Attitude: cooperative Thought process: Normal thought process present Assessment & Plan Assessment & Plan (1) Excessive daytime sleepiness: Code(s): G47.19 - Other hypersomnia Category: Medical (2) Snoring: Code(s): R06.83 - Snoring Category: Medical (3) Sleep difficulties: Code(s): G47.9 - Sleep disorder, unspecified Category: Medical (4) Obstructive sleep apnea: Comment: cannot tolerate CPAP Code(s): G47.33 - Obstructive sleep apnea (adult) (pediatric) Category: Medical (5) Relapsing remitting multiple sclerosis: Code(s): G35 - Multiple sclerosis Category: Medical Plan Pt advised to undergo in-lab sleep study to assess for sleep apnea and periodoc limb movements of sleep. In-lab sleep study required d/t MS dx. We will f/u upon review of study Pt seen in c/w Dr Monsalve. f/u in 6 months or sooner prn. Orders: Orders RT PSG in-lab sleep study Today G35 - Multiple sclerosis, G47.19 - Other hypersomnia, G47.33 - Obstructive sleep apnea (adult) (pediatric), G47.9 - Sleep disorder, unspecified, R06.83 - Snoring Scribe Plan - Not visible on output: Patient seen in collaboration with Dr. Monsalve. Coding Level of Care Code New Pt Level 4 (72508) Diagnoses Excessive daytime sleepiness G47.19 Snoring R06.83 Sleep difficulties G47.9 Obstructive sleep apnea G47.33 Relapsing remitting multiple sclerosis G35 [place] Sleepiness Scale Questions Sitting and reading: would never doze Watching TV: high chance of dozing Sitting inactive in a theater, movie etc.: moderate chance of dozing As a passenger in a car for an hour without break: would never doze Lying down in the afternoon when circumstances permit: moderate chance of dozing Sitting and talking to someone: would never doze Sitting quietly after lunch without alcohol: high chance of dozing In a car, while stopped for a few minutes in the traffic: would never doze ESS < 10: normal, ESS > 12: pathologic: 10
[2024-01-19 08:51] VITALS: BP 115/72; PULSE 73; O2SAT 97; BMI 30.9
== END 2024-01-19 09:37 | disposition home or self-care (01) ==
PROVIDERS: PCP Internal Medicine; Visit Provider Nurse Practitioner Family
DX: G47.19 Other hypersomnia (principal); R06.83 Snoring; G47.9 Sleep disorder, unspecified; G47.33 Obstructive sleep apnea (adult) (pediatric); G35 Multiple sclerosis
CPT/HCPCS: 99204

== ENCOUNTER → 2024-01-19 08:37 | Outpatient (BNVA) | payer OTHER, SELFPAY | PROVIDERS: PCP Internal Medicine; Visit Provider Nurse Practitioner Family ==

== ENCOUNTER → 2024-02-13 19:30 | Outpatient (REF) | payer OTHER, SELFPAY | LOC: HO.SL 19:30 | PROVIDERS: PCP Internal Medicine; Visit Provider Nurse Practitioner Family | DX: G47.33 Obstructive sleep apnea (adult) (pediatric) (principal); G47.19 Other hypersomnia; R06.83 Snoring | CPT/HCPCS: 95810 ==

== ENCOUNTER → 2024-02-13 21:35 | Outpatient (BNV) | payer OTHER, SELFPAY | PROVIDERS: PCP Internal Medicine; Visit Provider Psychiatry & Neurology Neurology | DX: G47.33 Obstructive sleep apnea (adult) (pediatric) (principal) | CPT/HCPCS: 95810 ==

== ENCOUNTER 2024-04-25 12:21 | Outpatient (AMB) | payer OTHER, SELFPAY ==
[2024-04-25 12:51] VITALS: BP 104/66; PULSE 98; O2SAT 93; BMI 30.3
--- NOTE | 2024-04-25 12:51 | A.OFFPC_ITS ---
Vital Signs 04/25/24 12:51 Height 5 ft 8 in Weight 199 lb BMI 30.3 BP 104/66 Blood Pressure Location Lt brachial Position Sitting Pulse 98 Pulse Source Pulse Oximeter Pulse Oximetry (%) 93 Oxygen Delivery Method Room Air Intake Visit Reasons: Follow Up Refrigeration Technician Required: No Accompanied by: Self / Same As Patient Allergies lisinopril [LISINOPRIL] Allergy (Mild, Verified 04/25/24 12:53) SCRATCHY THROAT teriflunomide Allergy (Mild, Verified 04/25/24 12:53) Rash Tobacco use date assessed: 01/11/24 Dental Screening Dental Screen Date: 01/11/24 HPI Follow Up HPI Details A 59-year-old obese male with diabetes mellitus hypertension hypercholesterolemia this time Sussy and relapsing remitting multiple sclerosis coming in for follow-up. Last seen in 01/30/2024. Patient's Cologuard test is up-to-date. Review of the notes had sleep study done in February 2024 showing obstructive sleep apnea severe with an AHI of 33 and advised CPAP 4-10 cm water with AirFit N20 medium mask or CPAP 10 cm water so far started yesteday does benefir from this [facility] Medical History (Updated 04/25/24 @ 13:18 by Erlinda Sheets MD) Sleep difficulties Snoring Excessive daytime sleepiness Tinnitus Colon cancer screening Esophageal bleed, non-variceal Social History Housing: House Alcohol intake: never Patient Tobacco Use Status: Never used Tobacco Tobacco use type: Cigarette e-Cigarette/Vaping Use: Never Used Second Hand Smoke Exposure: No service: No Current occupational status: retired and disabled Cognitive needs: No Hearing needs: No Vision needs: Yes Questionnaire PHQ-9 Over the last 2 weeks, how often have you been bothered by any of the following problems? 1. Little interest or pleasure in doing things: nearly every day 2. Feeling down, depressed, or hopeless: more than half the days 3. Trouble falling or staying asleep, or sleeping too much: nearly every day 4. Feeling tired or having little energy: nearly every day 5. Poor appetite or overeating: several days 6. Feeling bad about yourself - or that you are a failure or have let yourself or your family down: several days 7. Trouble concentrating on things, such as reading the newspaper or watching television: more than half the days 8. Moving or speaking so slowly that other people could have noticed. Or the opposite - being so fidgety or restless that you have been moving around a lot more than usual: nearly every day 9. Thoughts that you would be better off or of hurting yourself in some way: several days Total score: 19 Depression Screening Interpretation: Positive Depression Screening Done: Yes 23691 - PHQ-9 Billing: Yes Source: Developed by Drs. Esvin Roman, Nam Lopez and colleagues, with an educational jose francisco from [email or web address]. Thrive Questionnaire Date Thrive assessed: 01/11/24 AUDIT C Alcohol Use Questionnaire (AUDIT-C) 1. How often do you have a drink containing alcohol?: Never 3. How often do you have six or more drinks on one occasion?: Never Total Score: 0 NISHA-7 AMB Questionnaire NISHA-7 Date NISHA - 7 assessed: 01/11/24 Source: Developed by Drs. Esvin Roman, Nam Lopez and colleagues, with an educational jose francisco from [email or web address]. Physical exam (Primary Care) Vital Signs: Last Vital Signs Pulse 98 04/25/24 12:51 BP 104/66 04/25/24 12:51 Pulse Ox 93 04/25/24 12:51 Oxygen Delivery Method Room Air 04/25/24 12:51 BMI result Body Mass Index 30.3 Tobacco/Smoking Status: Tobacco use Status Tobacco use date assessed 01/11/24 04/25/24 12:56 Patient Tobacco Use Status Never used Tobacco 04/25/24 12:56 Tobacco use type Cigarette 04/25/24 12:56 e-Cigarette/Vaping Use Never Used 04/25/24 12:56 PHQ-9: PHQ-9 Score PHQ-9: Total score 19 04/25/24 12:57 Depression Screening Interpretation: Positive Thrive Assessment: Date of Thrive Assessment Date Thrive assessed 01/11/24 04/25/24 12:56 Const General: alert; No acute distress Eyes Conjunctivae: conjunctivae normal Resp Auscultation: clear to auscultation bilaterally Cardio Rate: regular rate Rhythm: regular rhythm GI Inspection: Yes normal to inspection Extrem General: Yes normal to inspection and No edema Results AMB Hemoglobin A1c AMB Hemoglobin A1c 6.9 % Last Edit by Kalie Gautam CMA on 04/25/24 13:07 Results Reviewed Results Reviewed: Laboratory Last Values Hgb A1c (Clinic) 6.9 % (4.0-6.0) H 04/25/24 13:05 Assessment and Plan Assessment & Plan (1) Type 2 diabetes mellitus with hyperglycemia: Comment: [facility] Code(s): E11.65 - Type 2 diabetes mellitus with hyperglycemia Qualifiers: Diabetes mellitus ocean transportation intermediary insulin use: without ocean transportation intermediary use Qualified Code(s): E11.65 - Type 2 diabetes mellitus with hyperglycemia Plan: Decrease the amount of carbohydrate intake, pasta, bread, rice and potatoes are all sugar and that is aside from all the sweet stuff, remember that fruits are good but they are Sweet also. Hemoglobin A1c goal of less than 6.5. Patient on metformin 500 mg twice a day (2) Hypertension: Code(s): I10 - Essential (primary) hypertension Qualifiers: Hypertension type: primary hypertension Qualified Code(s): I10 - Essential (primary) hypertension Plan: Continue with blood pressure medication. Decrease salt intake and exercise patient takes irbesartan hydrochlorothiazide (3) Hypercholesterolemia: Code(s): E78.00 - Pure hypercholesterolemia, unspecified Plan: Avoid fried foods, chicken skin, eggs, butter margarine, pastries and meat. Be it pork or beef they have a lot of cholesterol 01/30/2024 last blood work on atorvastatin 40 mg once a day at goal (4) Obstructive sleep apnea: Comment: cannot tolerate CPAP Code(s): G47.33 - Obstructive sleep apnea (adult) (pediatric) Plan: Patient has had sleep study done in February showing severe sleep apnea with an AHI of 33 and was advised CPAP (5) Dysthymia: Comment: [facility] Counseling Code(s): F34.1 - Dysthymic disorder Plan: Continue to follow-up with counseling and therapy (6) Relapsing remitting multiple sclerosis: Code(s): G35 - Multiple sclerosis Plan: Continue with neurology follow-up. Orders: Orders AMB Hemoglobin A1c Today E11.65 - Type 2 diabetes mellitus with hyperglycemia Medications: New metformin 1,000 mg PO BIDWMEAL 60 tabs 4RF E11.65 - Type 2 diabetes mellitus with hyperglycemia Coding Level of Care Code Est Pt Level 4 (19791) Diagnoses Type 2 diabetes mellitus with hyperglycemia, without long-term current use of insulin E11.65 Diabetes mellitus jail insulin use: without ocean transportation intermediary use Primary hypertension I10 Hypertension type: primary hypertension Hypercholesterolemia E78.00 Obstructive sleep apnea G47.33 Dysthymia F34.1 Relapsing remitting multiple sclerosis G35
== END 2024-04-25 13:22 | disposition home or self-care (01) ==
PROVIDERS: PCP Internal Medicine; Visit Provider Internal Medicine
DX: E11.65 Type 2 diabetes mellitus with hyperglycemia (principal); I10 Essential (primary) hypertension; E78.00 Pure hypercholesterolemia, unspecified; G47.33 Obstructive sleep apnea (adult) (pediatric); F34.1 Dysthymic disorder; G35 Multiple sclerosis
CPT/HCPCS: 83036; 99214

== ENCOUNTER 2024-08-08 10:43 | Outpatient (AMB) | payer OTHER, SELFPAY ==
[2024-08-08 11:09] VITALS: BP 142/115; PULSE 93; O2SAT 99; BMI 30.8
--- NOTE | 2024-08-08 11:09 | A.OFFVIS_ITS ---
Vital Signs 08/08/24 11:09 Height 5 ft 8 in Weight 202 lb 8 oz BMI 30.8 BP 142/115 H Blood Pressure Location Lt brachial Position Sitting Pulse 93 Pulse Source Pulse Oximeter Pulse Oximetry (%) 99 Oxygen Delivery Method Room Air Intake Visit Reasons: Follow Up Boiler Tube Blower Required: No Accompanied by: Self / Same As Patient Allergies lisinopril [LISINOPRIL] Allergy (Mild, Verified 08/08/24 11:11) SCRATCHY THROAT teriflunomide Allergy (Mild, Verified 08/08/24 11:11) Rash Medication List - Last Reconciled 08/08/24 by Ayesha Hudson PA-C atorvastatin 40 mg PO DAILY bupropion HCl XL 150 mg PO QAM cholecalciferol (vitamin D3) 4,000 units PO DAILY citalopram 40 mg PO DAILY metformin 1,000 mg PO BID ocrelizumab (Ocrevus) 600 mg IV [id number] Do you need a note to return to daycare/school/sports/work: No HPI Comments Details: 59 y/o Right handed male with h/o of MS follows up for Sleep Apnea. Interval changes in medical history: He was shopping in [place], felt light headed and dizzy, then stepped forward and fell, ambulance was called, and taken to [facility], did not have his brace on and didn't have cane that day. BP was 52 in the ambulance. Given 3 Liters IV fluids with electrolytes - EKG - Echo- all were normal at the time. CPAP use: Devers >4 hours average 92%, total hours per night 5 hours and 12 min., pressures 25mmL60, AHI is 5.2. H/O lightheadedness and dizziness, and vertigo. Pt describes his initial MS s/s as right calf tingling, denies diplopia, which he states has resolved. However, he continues to have right foot drop, falls- more so when not wearing RLE AFO, and improved fatigue. He is f/b [facility], has infusions 2x /year. , next infusion and will follow up MRI annually. No difficulty falling asleep and staying asleep- wake sup 3 x's per night, snoring, nocturnal restlessness, tosses and turns. Denies nocturnal hallucinations, sleep paralysis, parasomnias. Seen by speech and hearing for Cognitive therapy, due to forgetfulness. Denies usual leg cramps, spasticity. Plays cards with friends and family weekly, has a good support network. [facility] Medical History (Updated 08/08/24 @ 12:11 by Ayesha Hudson PA-C) Sleep difficulties Snoring Excessive daytime sleepiness Tinnitus Colon cancer screening Esophageal bleed, non-variceal Social History Housing: House Alcohol intake: never Patient Tobacco Use Status: Never used Tobacco Tobacco use type: Cigarette e-Cigarette/Vaping Use: Never Used Second Hand Smoke Exposure: No service: No Current occupational status: retired and disabled Cognitive needs: No Hearing needs: No Vision needs: Yes Physical Exam Vital Signs: Last Vital Signs Pulse 93 08/08/24 11:09 BP 142/115 H 08/08/24 11:09 Pulse Ox 99 08/08/24 11:09 Oxygen Delivery Method Room Air 08/08/24 11:09 BMI result Body Mass Index 30.8 Const General: cooperative, comfortable and no acute distress Nutritional Appearance: average body habitus and overweight Orientation/consciousness: patient oriented x3 Eyes Pupils: Equal, round and reactive pupils present Resp Effort & Inspection: normal respiratory effort and able to speak in complete sentences Neuro General: patient oriented x3 Cranial nerves: Yes CN's II-XII intact bilaterally, Yes Facial sensation intact/muscles of mastication intact, Yes Equal, round and reactive pupils present, Yes Normal accommodation reflex present, Yes Bilaterally intact EOM present, Yes Normal facial strength present, Yes Midline tongue present, Yes Symmetric palate elevation present, Yes Ability to bilaterally rotate head present and Yes Ability to bilaterally elevate shoulders present Cognition (Neuro): normal cognition Gait exam (Neuro): Normal gait present and Other gait observations present (uses a cane.) Motor exam (neuro): 5/5 motor strength present throughout Deep tendon reflexes (DTR's): Right triceps reflex intensity grade: 2+, Left triceps reflex intensity grade: 2+, Rt Biceps (C5, C6): 2+, Left biceps reflex intensity grade: 2+, Right brachioradialis reflex intensity grade: 2+, Left brachioradialis reflex intensity grade: 2+, Right patellar reflex intensity grade: 2+ and Left patellar reflex intensity grade: 2+ Coordination: [id number]-sn-pafh test normal Psych Appearance: well kempt Speech and movement: Normal speech and movement present Thought content: Normal thought content present Insight: Good insight present (Psych) Judgement: Good judgement present (Psych) Results Reviewed Results Reviewed: CPAP average total 5 hours and 12 min / 83 days, 92%, pressures are set to [id number], leaks max 34.4, AHI 5.2. [employer] is his supplier for CPAP Serial # [id number] Assessment & Plan Assessment & Plan (1) Obstructive sleep apnea: Comment: cannot tolerate CPAP Code(s): G47.33 - Obstructive sleep apnea (adult) (pediatric) Category: Medical (2) Sleep difficulties: Code(s): G47.9 - Sleep disorder, unspecified Category: Medical Plan Patient is advised to monitor total number of hours he is sleeping and his AHI, apnea / hypopnea index. Sleep Hygiene education provided, prevent infections and microbes, use disposable CPAP liners as needed to avoid irritation, and improve compliance. Wash mask daily, change filters, fill reservoir and ask for supplies as needed. BMI is 30, encouraged patient to engage in daily exercise for weight reduction and improve mood, walking is an easy way to make changes. Web Development Intern/Marketing Communications Manager referral if interested in dietary caloric intake and meal planning. DASH Diet for Hypertension, per [employer] Heart Association #1 modifiable risk factor to prevent heart attacks is blood pressure control. Refer to: www.https//mydash.diet Mediterranean Diet- Cardiovascular Risk reduction, weight loss, and control Type 2 diabetes mellitus. Blood Glucose Monitoring, A1C control for prevention of diabetes, nephropathy, neuropathy, retinopathy. Coding Level of Care Code Est Pt Level 3 (74427) Diagnoses Obstructive sleep apnea G47.33 Sleep difficulties G47.9
== END 2024-08-08 11:52 | disposition home or self-care (01) ==
PROVIDERS: PCP Internal Medicine; Visit Provider Physician Assistant Medical
DX: G47.33 Obstructive sleep apnea (adult) (pediatric) (principal); G47.9 Sleep disorder, unspecified
CPT/HCPCS: 99213

== ENCOUNTER → 2024-08-08 10:43 | Outpatient (BNVA) | payer OTHER, SELFPAY | PROVIDERS: PCP Internal Medicine; Visit Provider Physician Assistant Medical ==

== ENCOUNTER 2024-08-15 07:49 | Outpatient (AMB) | payer OTHER, SELFPAY ==
[2024-08-15 08:02] VITALS: BP 138/96; PULSE 85; O2SAT 99; BMI 30.9
--- NOTE | 2024-08-15 08:02 | A.OFFPC_ITS ---
Vital Signs 08/15/24 08:02 08/15/24 08:25 Height 5 ft 8 in Weight 203 lb 4.259 oz BMI 30.9 BP 138/96 H 130/92 H Blood Pressure Location Lt brachial Lt brachial Position Sitting Sitting Pulse 85 Pulse Source Pulse Oximeter Pulse Oximetry (%) 99 Oxygen Delivery Method Room Air Intake Visit Reasons: [facility] 08/01 low bp Television Announcer Required: No Accompanied by: Self / Same As Patient Allergies lisinopril [LISINOPRIL] Allergy (Mild, Verified 08/15/24 08:05) SCRATCHY THROAT teriflunomide Allergy (Mild, Verified 08/15/24 08:05) Rash Medication List - Last Reconciled 08/15/24 by Tila Harris PA-C atorvastatin 40 mg PO DAILY bupropion HCl XL 150 mg PO QAM cholecalciferol (vitamin D3) 4,000 units PO DAILY citalopram 40 mg PO DAILY metformin 1,000 mg PO BID mirtazapine 7.5 mg PO BEDTIME ocrelizumab (Ocrevus) 600 mg IV [id number] Tobacco use date assessed: 01/11/24 Dental Screening Dental Screen Date: 08/15/24 Did you have a dental visit in the last 12 months?: No Did you have a dental problem in the last 6 months where you did not have access to dental care?: No Was dental information given to patient?: Patient has dentist HPI [facility] 08/01 low bp HPI Details 59-year-old obese male with diabetes oneil litus hypertension hypercholesterolemia this time Sussy and relapsing remitting multiple sclerosis last seen by Dr. Sheets coming in for hospital discharge follow up.?In review of the notes patient was seen at [facility] after a syncopal episode while at the grocery store.?In the ED cardiac ultrasound was performed which showed no abnormalities but did show collapsed IVC supporting orthostatic hypotension diagnosis. Labs showed hypokalemia with hypomagnesemia and patient was admitted for observation. Patient was previously on irbesartan-hydrochlorothiazide which was removed during his admission to [facility] for hypotension. He states he does still occasionally get dizziness with position changes which is a chronic problem for him but he has been working on staying well hydrated. Blood pressure has been elevated in the 160s over 90s at home and patient denies any symptoms at this time. He also mentions having pain on the left side of the back that radiates down the left leg and left ankle swelling without pain. [facility] Medical History Sleep difficulties Snoring Excessive daytime sleepiness Tinnitus Colon cancer screening Esophageal bleed, non-variceal Surgical History No pertinent past surgical history Social History Housing: House Alcohol intake: never Patient Tobacco Use Status: Never used Tobacco Tobacco use type: Cigarette e-Cigarette/Vaping Use: Never Used Second Hand Smoke Exposure: No service: No Current occupational status: retired and disabled Cognitive needs: No Hearing needs: No Vision needs: Yes Questionnaire Thrive Questionnaire Date Thrive assessed: 01/11/24 NISHA-7 AMB Questionnaire NISHA-7 Date NISHA - 7 assessed: 01/11/24 Source: Developed by Drs. Esvin Roman, Denise Zarate, Nam Ku and colleagues, with an educational jose francisco from [employer]. Review of Systems Const Denies body aches, Denies chills, Denies fever(s), Denies headache(s) and Denies poor appetite Eyes Reports no additional complaints ENT Denies dysphagia, Denies dizziness, Denies headache(s) and Denies odynophagia Card Denies chest pain, Denies syncope, Denies edema, Denies irregular heart rhythm, Denies lightheadedness and Denies dyspnea Resp Denies cough and Denies dyspnea GI Denies abdominal pain, Denies constipation, Denies dysphagia, Denies diarrhea, Denies nausea, Denies odynophagia and Denies vomiting Reports no additional complaints Musc Reports no additional complaints and Denies abnormal gait Skin/Breast Reports system reviewed and no additional complaints, except as documented Neuro Denies abnormal gait, Denies dizziness, Denies syncope and Denies headache(s) Psych Reports no additional complaints Physical exam (Primary Care) Vital Signs: Last Vital Signs Pulse 85 08/15/24 08:02 BP 138/96 H 08/15/24 08:02 Pulse Ox 99 08/15/24 08:02 Oxygen Delivery Method Room Air 08/15/24 08:02 BMI result Body Mass Index 30.9 Tobacco/Smoking Status: Tobacco use Status Tobacco use date assessed 01/11/24 08/15/24 08:08 Patient Tobacco Use Status Never used Tobacco 08/15/24 08:08 Tobacco use type Cigarette 08/15/24 08:08 e-Cigarette/Vaping Use Never Used 08/15/24 08:08 Thrive Assessment: Date of Thrive Assessment Date Thrive assessed 01/11/24 08/15/24 08:08 Const General: cooperative, healthy appearing, comfortable and no acute distress Orientation/consciousness: patient oriented x3 HENMT Head: Yes normocephalic Ears: hearing grossly normal bilaterally General nose exam: Normal external nose present Eyes General: appearance normal, both eyes and all related structures Conjunctivae: conjunctivae normal Neck Neck: Yes full ROM and Yes no lymphadenopathy Resp Effort & Inspection: normal respiratory effort Auscultation: clear to auscultation bilaterally, no crackles, no rales, no rhonchi and no wheezes Cardio Rate: regular rate Rhythm: regular rhythm Skin General skin exam: no rashes or lesions noted Neuro General: patient oriented x3 Gait exam (Neuro): Normal gait present Extrem Other: Swelling over lateral malleolus without overlying erythema or warmth and no tenderness to palpation, no edema General: Yes normal to inspection, Yes full ROM and No edema Psych Affect: normal affect Attitude: cooperative Insight: Good insight present (Psych) Judgement: Good judgement present (Psych) Coding Level of Care Code Est Pt Level 4 (57212) Diagnoses Primary hypertension I10 Hypertension type: primary hypertension Type 2 diabetes mellitus with hyperglycemia, without long-term current use of insulin E11.65 Diabetes mellitus supervisor intermediates insulin use: without supervisor intermediates use Low back pain M54.50 Assessment & Plan Assessment & Plan (1) Hypertension: Code(s): I10 - Essential (primary) hypertension Category: Medical Qualifiers: Hypertension type: primary hypertension Qualified Code(s): I10 - Essential (primary) hypertension Plan: Patient's diastolic blood pressure elevated in the office today 130/96 and 130/92 when retaken. Patient states his blood pressures at home have been even higher and would like to restart something for blood pressure. Given that his recent hospitalization was caused due to orthostatic hypotension we will avoid diuretics at this time. We will start amlodipine 2.5 mg advised patient to monitor her symptoms and if he becomes lightheaded or dizzy to reach out to the office. Encouraged patient to stay well hydrated incorporate electrolytes into his water. (2) Type 2 diabetes mellitus with hyperglycemia: Comment: [facility] Code(s): E11.65 - Type 2 diabetes mellitus with hyperglycemia Category: Medical Qualifiers: Diabetes mellitus custodial insulin use: without custodial use Qualified Code(s): E11.65 - Type 2 diabetes mellitus with hyperglycemia Plan: Decrease the amount of carbohydrates such as pasta, bread, rice, and potatoes and limit the amount of sweets. Although fruits are generally healthy they should be eaten in moderation as they are still high in sugar. Hemoglobin A1c goal of less than 7%. (3) Low back pain: Code(s): M54.50 - Low back pain, unspecified Category: Medical Plan: Patient complaining of left-sided low back pain that radiates down the left leg. States he gets yearly MRIs from [facility], we will request these results. Denies any recent falls or accidents. Offered physical therapy at this time which was declined patient will continue to monitor his symptoms and reach out if symptoms worsen or persist. Plan This note was constructed using voice recognition software. While every effort has been made to ensure accuracy and district customs director, still areas may have been included sometimes these areas may affect the content or meeting of the given symptoms. Total time spent caring for the patient today was 30 minutes. This includes time spent before the visit reviewing the chart, time spent during the visit, and time spent after the visit and documentation.
[2024-08-15 08:25] VITALS: BP 130/92
--- OUTSIDE RECORDS SUMMARY | 2024-08-21 16:19 | XMS_ITS ---
Author Name [facility] Organization Unknown History of Medication Use Medication Directions Dispensed Refills Start Date End Date Status acetaminophen (TYLENOL) tablet 975 mg 975 mg, Oral, Once, On Deonna 03/08/24 at 0900, For 1 doseGive 30 minutes prior to ocrelizumab. 4 completed ocrelizumab (OCREVUS) 600 mg in sodium chloride (NS) 0.9 % 500 mL IVPB 600 mg, Intravenous, Once, On Deonna 03/08/24 at 0900, For 1 doseMust use in-line 0.22 micron filter. ??- Infusion Rate for first full 600 mg dose or reaction with previous infusion: Start at 40 mL/hr. Increase by 40 mL/hr every 30 minutes. Maximum rate: 200 mL/hr. Duration: 3.5 hours or longer.??- Infus 4 completed famotidine (PF) (PEPCID) injection 20 mg 20 mg, Intravenous, Once, On Deonna 03/08/24 at 0900, For 1 doseGive 30 minutes prior to ocrelizumab. ?? Administer only if patient intolerant to diphenhydramine (BENADRYL). ??IV push over 2-3 minutes. 4 completed methylPREDNISolone sodium succinate (SOLU-Medrol) injection 125 mg 125 mg, Intravenous, Once, On Deonna 03/08/24 at 0900, For 1 doseGive 30 minutes prior to ocrelizumab. ??Administer over 2-3 minutes 4 completed vitamin D3 (VITAMIN D3) 25 MCG (1000 UT) tablet Take 1 tablet (1,000 Units total) by mouth daily. 4 active atorvastatin (LIPITOR) tablet 40 mg Take 1 tablet (40 mg total) by mouth daily. 4 active Melatonin 5 MG TABS 1 tablet in the evening 4 active irbesartan-hydroCHLORO thiazide (AVALIDE) 150-12.5 MG per tablet Take 1 tablet by mouth daily. 4 active metFORMIN (GLUCOPHAGE) tablet 500 mg Take 1 tablet (500 mg total) by mouth 2 (two) times a day with meals. 4 active buPROPion (WELLBUTRIN XL) 150 MG 24 hr tablet Take 1 tablet (150 mg total) by mouth daily. 4 active citalopram (CeleXA) 40 MG tablet TAKE 1 TABLET BY MOUTH EVERY DAY 4 active Problems Problem Status Onset Date Problem Type Date of Resoluti on Source Fatigue active 2019-12-27 ProblemAct [facility] Diabetes active 2019-12-27 ProblemAct [facility] Multiple sclerosis active 2021-02-17 ProblemAct [facility] HLD (hyperlipidemia) active 2019-12-27 ProblemAct [facility] Depression active 2019-12-27 ProblemAct [facility] Immunizations Vaccine Date Source Lot Number Status Covid-19 (Moderna Booster 18+) 0.25mL dosage 05/09/2021 [facility] completed Covid-19 (Moderna Booster 18+) 0.25mL dosage 01/25/2022 [facility] completed Covid-19 (Moderna 12+) 100mcg/0.5mL dosage 11/22/2020 [facility] completed Covid-19 (Moderna 12+) 100mcg/0.5mL dosage 12/20/2020 [facility] completed
--- OUTSIDE RECORDS SUMMARY | 2024-08-21 16:19 | XMS_ITS | Continuity of Care Document ---
Author Organization [facility] ter Address [address] [place] [id number]- Care Team Providers Care Air And Water Tester Name Role Phone Erlinda Sheets MD Primary Care Physician Encounter [facility] [place] [id number] Date(s): 08/01/24 - 08/02/[address] [address]- Discharge Disposition: A-D/C Home Attending Physician: Kay ALBERTO, Chadwick Haynes Admitting Physician: Lewis ALBERTO, Gabriel Perez Referring Physician: Not on Staff, Referring MD Encounter Type: Disch Obv Allergies, Adverse Reactions, Alerts Substance Criticality Severity Reaction Reaction Severity Status lisinopril Active Medications atorvastatin 40 mg oral tablet TAKE 1 TABLET BY MOUTH EVERY DAY Start Date: 08/01/24 Status: Ordered Repeat number: 1 Basic metabolic Panel Basic metabolic Panel, See Instructions, # 1 each, Refills 0, Tot. Refills 0, Maintenance, kindly forward to PCP Erlinda Sahni, 08/02/24 12:22:00 PM EST, Supply Start Date: 08/02/24 Status: Ordered Quantity: 1.0 Unit: each Repeat number: 1 buPROPion 150 mg/24 hours (XL) oral tablet, extended release TAKE 1 TABLET BY MOUTH EVERY DAY Start Date: 08/01/24 Status: Ordered Repeat number: 1 citalopram 40 mg oral tablet TAKE 1 TABLET BY MOUTH EVERY DAY Start Date: 08/01/24 Status: Ordered Repeat number: 1 metFORMIN 1000 mg oral tablet TAKE 1 TABLET BY MOUTH TWICE A DAY Start Date: 08/01/24 Status: Ordered Repeat number: 1 mirtazapine 7.5 mg oral tablet 1 tablet = 7.5 mg, By Mouth, Daily at bedtime, # 30 tablet, 0 Refills, Maintenance, 08/02/24 12:13:00 PM EST, [facility], Partial fill upon patient request if the prescription is for a schedule II opioid drug. Start Date: 08/02/24 Status: Ordered Quantity: 30.0 Unit: tablet Repeat number: 1 Ocrevus 300 mg/10 mL intravenous solution = 600 mg, IV Infusion, Every 6 months, 0 Refills, Maintenance, 08/01/24 5:14:00 PM EST, Partial fill upon patient request if the prescription is for a schedule II opioid drug. Start Date: 08/01/24 Status: Ordered Repeat number: 1 potassium phosphate-sodium phosphate 250 mg-45 mg-298 mg oral tablet 1 tablet, By Mouth, 2 times a day, for 3 days, # 6 tablet, 0 Refills, Acute 08/05/24 12:13:00 PM EST, 08/02/24 12:13:00 PM EST, [facility], Partial fill upon patient request if the prescription is for a schedule II opioid drug., 1 tablet By Mouth 2 times a day,x3 days Start Date: 08/02/24 Stop Date: 08/05/24 Status: Ordered Quantity: 6.0 Unit: tablet Repeat number: 1 Vitamin D3 2000 intl units oral capsule 1 capsule = 50 mcg, By Mouth, Daily, # 60 capsule, 0 Refills, Maintenance, 08/01/24 5:13:00 PM EST,Capsule, Partial fill upon patient request if the prescription is for a schedule II opioid drug. Start Date: 08/01/24 Status: Ordered Quantity: 60.0 Unit: capsule Repeat number: 1 Vital Signs Most recent to oldest [Reference Range]: 1 2 3 Weight 88.4 kg (08/02/24 1:17 AM) 85.4 kg (08/01/24 11:16 PM) 85.4 kg (08/01/24 9:08 PM) Oxygen Saturation [94-100 %] 96 % (08/02/24 10:25 AM) 100 % (08/02/24 7:07 AM) 99 % (08/02/24 1:17 AM) Pulse Rate [55-90 bpm] 75 bpm (08/02/24 10:25 AM) 64 bpm (08/02/24 7:07 AM) 70 bpm (08/02/24 1:17 AM) Blood Pressure [90-138/55-84 mm Hg] 132/80mm Hg (08/02/24 10:25 AM) 125/74mm Hg (08/02/24 7:07 AM) 129/76mm Hg (08/02/24 1:17 AM) Respiratory Rate [16-30 br/min] 18 br/min (08/02/24 10:25 AM) 18 br/min (08/02/24 7:07 AM) 18 br/min (08/02/24 1:17 AM) Temperature [96.8-100.4 DegF] 97.6 DegF (08/02/24 10:25 AM) 97.5 DegF (08/02/24 7:07 AM) 97.6 DegF (08/02/24 3:55 AM) Mode of Delivery (Oxygen) Room air (08/02/24 10:25 AM) Room air (08/02/24 7:07 AM) Room air (08/02/24 3:55 AM) Blood pressure sites Arm, left (08/02/24 10:25 AM) Arm, left (08/02/24 7:07 AM) Arm, right (08/02/24 1:17 AM) Temperature Route Oral (08/02/24 10:25 AM) Oral (08/02/24 7:07 AM) Oral (08/02/24 3:55 AM) Weight Obtained Via Bed scale (08/02/24 1:17 AM) Social History Social History Type Response Smoking Status Never (less than 100 in lifetime) entered on: 08/01/24 Sex Sex Representation Male (finding) Admission evaluation note * Shahid ALBERTO, Kenny: PERFORM, MODIFY, MODIFY Event Display: Admission Note Authored Date: Patient: ??NEERU LINK ? Age:??59 Years?Sex:??Male?:??1965?? Chief Complaint/Reason for Consultation From grocery store where pt felt dizzy , became diaphoretic, fell onto his buttocks. +syncopal episode. Pt attempted to get up, but was unable to due ot the dizziness and weakness. Pt found to be hypotensive to 86/52, improved with fluids. History of Present Illness Neeru Link is a 59-year-old male with past medical history of multiple sclerosis, hypertension,type 2 diabetes mellitus, hyperlipidemia,??HUNTER on CPAP presenting for syncope, most likely related to orthostatic hypotension. ?? Patient states for the preceding several months he has had episodes of dizziness with position changes.?He states that??he has not been eating as much as he typically does, as he is not as hungry.??He does say for the last few days he has been more depressed than usual as??yesterday would have been his anniversary??if he had remained . ??Patient states that occasionally with theseepisodes of dizziness he has had palpitations intermittently. ? Today he was at the grocery store when he became lightheaded, diaphoretic and fell onto his buttocks.?? He tried to get up but became dizzy again and fell backwards back onto his buttocks.?? There are some moments he does not remember and he possibly fully syncopized.?? On EMS arrival he was pale, diaphoretic, hypotensive with systolic in the 80s.?? They administered approximately 600 cc of normal saline en route.?? Per ED note on arrival to the ED he was alert and oriented, and feeling better.?? He received a further 1.5 L of fluids in the ED. ?? Patient states that his sequelae from his MS is??dropfoot to the right, and fatigue.?? He states that he usually wears a brace and uses a cane, but did not bring those 2 things to the grocery store today.?He goes to [facility] for [facility].?He last saw his neurologist in April, and was told everything was going well.?? Patient denies any recent fevers, night sweats.?? He denies any diarrhea or constipation. ??He denies any taste changes.?? He states that he has a historyof GI bleed 30 years ago.?? He has had a colonoscopy, and more recently has had normal Cologuard testing.?? Regarding his depression, patient states that he did have a counselor, but??they abruptly qu it. ??He denies any suicidal ideation. ?? Labs notable for no fever, regular pulse, regular respirations, blood pressure systolic in the 100s, saturating well on room air.?? Lab work notable for unremarkable CBC, BMP notable for potassiumof 3.2, bicarb 18, glucose 136, BUN 32, creatinine 2.04, magnesium 1.5, troponin 11.?? Patient was given 40 mill equivalents of potassium repletion, 2 g of magnesium repletion.?? Bedside ultrasound shows normal aorta, no pericardial fluid, grossly normal cardiac activity, collapsed IVC. Review of Systems General:??+ fatigue HEENT:??Negative for congestion, rhinorrhea, sore throat Cardiovascular: + palpitations,??Negative for chest pain Respiratory:??Negative for shortness of breath, wheezing Gastrointestinal:??Negative for abdominal pain, nausea/vomiting, diarrhea/constipation Genitourinary:??Negative for dysuria, hematuria Neurologic:??+ dizziness, syncope Skin:??Negative for rashes or lesions Psych: + depression?? Objective Measurements?? Weight: 85.4 kg (08/01/24) ?? Vital Signs?? Temperature: 97.4 DegF (08/01/24 11:35:00) Temperature Route: Oral (08/01/24 11:35:00) Pulse Rate: 70 bpm (08/01/24 17:48:00) Respiratory Rate: 17 br/min (08/01/24 17:48:00) Systolic Blood Pressure: 113 mm Hg (08/01/24 17:48:00) Diastolic Blood Pressure: 69 mm Hg (08/01/24 17:48:00) Blood pressure sites: Arm, left (08/01/24 17:48:00) Mean Arterial Pressure: 80 mm Hg (08/01/24 16:49:00) Pulse Pressure: 44 mm Hg (08/01/24 16:49:00) Oxygen Saturation: 98 % (08/01/24 17:48:00) Mode of Delivery (Oxygen): Room air (08/01/24 17:48:00) Early Warning Score: 2 (08/01/24 17:52:36) ?? Physical Exam General:??In no distress. Head: NCAT. Scalp without any lesions. Eyes: [place] conjunctiva. Anicteric sclera. Ears: Bilateral pinnae without discharge or lesions. Nose:?? No discharge or congestion. Throat/Mouth: MMM. Oral mucosa was pink and without any lesions. Cardiovascular: Physiologic S1 and S2. No murmurs, rubs or gallops could be auscultated. Respiratory: CTA bilaterally with good inspiratory effort and symmetric chest wall movement. No wheezes, rales, or rhonchi. Abdominal: Abdomen is??soft and non-distended. Positive bowel sounds in all four quadrants. No tenderness to palpation. No rebound or guarding. No CVA tenderness. Musculoskeletal: Moving all 4 extremities equally. Vascular: Radial pulses are 2+??bilaterally. No peripheral edema. Neurologic: Awake, alert, interactive. No focal neurologic deficits.?? Mental Status: Alert and Oriented to person, place, time, situation Cranial Nerve exam: CNII: PERRLA.?? CNIII, IV, : Extraocular movement intact bilaterally. CNV: Facial sensation intact bilaterally. [place] and temporalis have strong tone with clenched jaw. CNVII: Symmetrical facial movements (smile, frown, eyebrow raise). Strong buccinator tone bilaterally. CNVIII: No gross hearing abnormalities.?? CNIX, X: Uvula midline.?? Symmetric palate rise. CNXI: Shoulder shrug symmetric. Sternocleidomastoid had 5/5 strength. CNXII: No tongue deviation on protrusion. Patient is able to move tongue left and right. Motor: Patient had full range of motion in neck, extremities, and back. Muscle strength is 5/5 bilaterally in all extremities though subtle weakness in the right foot compared to the left. Cerebellar:??Normal finger to nose test. Assessment/Plan Diagnoses DREA (acute kidney injury) ??(N17.9) Depression ??(F32.A) Diabetes mellitus ??(E11.9) HLD (hyperlipidemia) ??(E78.5) HTN (hypertension) ??(I10) Hypokalemia ??(E87.6) Hypomagnesemia ??(E83.42) Multiple sclerosis ??(G35) HUNTER on CPAP ??(G47.33) Syncope ??(R55) ?? Assessment:??Neeru Link is a 59-year-old male with past medical history of multiple sclerosis, hypertension, type 2 diabetes mellitus, hyperlipidemia,??HUNTER on CPAP presenting for syncope, most likely related to orthostatic hypotension. ?? Syncope (R55):??Patient presents with what appears to be an episode of syncope at the??grocery store today.??He was found to be pale, diaphoretic, hypotensive on EMS arrival which improved with fluidadministration.??This has been in the setting of months long periods of dizziness.??While patient was in the ED, he was too dizzy to fully participate with orthostatic vitals,??indicating that he is not??likely having orthostatic hypotension. -Will give a bolus of fluids (1L NaCl) -Obtain echo -24 hours of cardiac telemetry -Orthostatic vitals when patient is able ?? DREA (acute kidney injury) (N17.9) ?Associated with??Hypomagnesemia (E83.42),??Hypokalemia (E87.6) ? Patient presenting with an DREA with low potassium low magnesium.??This is most likely in the setting of??dehydration due to poor p.o. intake.??Patient does not have a known history of kidney issues. -Bolus of fluids as above -Monitor BMP??and magnesium -Nutrition consult to see if patient would be appropriate for supplementation ?? Depression (F32.A):??Patient reports increase in his depressive symptoms.??It could be that??his??reduced p.o. intake is a symptom of his increased depression which in turn could be related to intravascular depletion of volume??and orthostatic hypotension.?He is not expressing any active SI, Allyssa do not think an inpatient psych consult is??necessary at this time. -PCP follow-up to??discuss??medication regimen, and to try to plug back in with counseling ?? Multiple sclerosis (G35):??Patient has history of multiple sclerosis.??His??current deficits for right foot drop,??fatigue.??He is on??Ocrevus infusions twice a year.??He follows with the [facility]While his??recent increase in??dizziness and??possible??syncope may be related to autonomicdysfunction in setting of MS, his MS appears to be fairly stable.??Last imaging in her system is [id number]. -Patient should follow-up with his neurologist outpatient -If patient has worsening or new neurological symptoms, consider??MRI while he is hospitalized -PT evaluation to try to help with balance and coordination ?? HLD (hyperlipidemia) (E78.5):??Continue atorvastatin ?? HUNTER on CPAP (G47.33):??Patient is on CPAP for his HUNTER, does not recall the settings. -Will order CPAP for??bedtime??and with naps ?? Diabetes mellitus (E11.9):??Patient history of diabetes mellitus, on??metformin.??Of note he statesthat his metformin dosing was recently increased -Hold metformin while patient is in the hospital -Sliding scale lispro with POCT IDM before bedtime -Hypoglycemia measures ?? HTN (hypertension) (I10):??Patient has a history of hypertension and is on??hydrochlorothiazide???irbesartan.??He was hypotensive prior to arrival. -Hold hydrochlorothiazide???irbesartan ?? Quality Measures DVT PPx: Heparin SQ?? Code Status: Full?? Diet: Cardiac?? HCP: daughter, Francine, updated at bedside on 08/01? Patient seen and discussed with Attending, Dr. Marx ?? Kenny Key MD PGY-3, Internal Medicine-Pediatrics Pager [phone], [employer] Histories Allergies Allergies ?(Active and Proposed Allergies Only) lisinopril? (Severity: Unknown severity, Onset: Unknown) ?? Past Medical History/Problem List No problems documented. ?? Past Surgical History No surgery history documented. ?? Social History Alcohol Details:??Use: Current. ??Frequency: 1-2 times per year. Home/Environment Details:??Living situation: Home/Independent. ??Lives with: Children, Mother. Substance Abuse Details:??Use: Never. Tobacco Details:??Use: Never (less than 100 in lifetime). Electronic Cigarette/Vaping Details:??Electronic Cigarette Use: Never. ?? Family History Sister: Hypertension Brother: Hypertension Medications Home Medications Atorvastatin (atorvastatin 40 mg oral tablet)?TAKE 1 TABLET BY MOUTH EVERY DAY BuPROpion (buPROPion 150 mg/24 hours (XL) oral tablet, extended release)?TAKE 1 TABLET BY MOUTH EVERY DAY Cholecalciferol (Vitamin D3 2000 intl units oral capsule)?1?capsule?50?Microgram?By Mouth?Daily Citalopram (citalopram 40 mg oral tablet)?TAKE 1 TABLET BY MOUTH EVERY DAY Hydrochlorothiazide-Irbesartan (hydrochlorothiazide-irbesartan 12.5 mg-150 mg oral tablet)?TAKE 1/2 TABLET BY MOUTH ONCE DAILY FOR 30 DAYS 90 Metformin (metFORMIN 1000 mg oral tablet)?TAKE 1 TABLET BY MOUTH TWICE A DAY Ocrelizumab (Ocrevus 300 mg/10 mL intravenous solution)?600?Milligram?IV Infusion?Every6 months ?? Inpatient Medications Medications (18) Active SCHEDULED: (7) Atorvastatin 40 mg Tablet (atorvastatin 40 mg oral tablet) ??40 mg, By Mouth, Daily at bedtime BuPROPion XL 150 mg Tablet (BuPROpion XL Tablet) ??150 mg, By Mouth, Daily Cholecalciferol (cholecalciferol 1000 intl units oral tablet) ??50 mcg, By Mouth, Daily Citalopram 20 mg Tablet (citalopram 20 mg oral tablet) ??40 mg, By Mouth, Daily Heparin 5000 units/mL Inj (1 mL) (Heparin Inj) ??5,000 units 1 mL, Subcutaneous Injection, 3 times a day Insulin Lispro 100 units/mL Inj (Insulin LISPRO Sliding Scale) ??2-10 units, Subcutaneous Injection, 3 times a day before meals NaCl 0.9% Flush 3ml (NaCL 0.9% Flush) ??3 mL, IV Push, Every 8 hours CONTINUOUS: (0) PRN: (11) Acetaminophen 325 mg Tablet (Acetaminophen Tablet) ??650 mg, By Mouth, Every 4 hours Dextrose Inj Syringe (Dextrose 50% Inj Syringe (25Gm)) ??12.5 Gm, IV Push Slowly, Every 20 minutes Dextrose Inj Syringe (Dextrose 50% Inj Syringe (25Gm)) ??25 Gm, IV Push Slowly, Every 15 minutes Docusate Sodium 100 mg Capsule (Docusate Sodium Capsule) ??100 mg 1 capsule, By Mouth, 2 times a day Glucagon 1 mg Inj (Glucagon Inj) ??1 mg, Intramuscular, Once Glucose 40% Gel (15 Gm) (Glucose Gel) ??15 Gm, By Mouth, Every 20 minutes Glucose 40% Gel (15 Gm) (Glucose Gel) ??30 Gm, By Mouth, Every 20 minutes Melatonin 3 mg Tablet (Melatonin Tablet) ??3 mg, By Mouth, Daily at bedtime NaCl 0.9% Flush 3ml (NaCL 0.9% Flush) ??3 mL, IV Push, Every 8 hours Polyethylene Glycol 17 Gm Powder (MiraLax Powder) ??17 Gm 1 pack/packet, By Mouth, Daily Senna Tablet ??8.6 mg 1 tablet, By Mouth, 2 times a day Results Recent Labs BLOOD COUNT & DIFF WBC 8.2 k/mm3 ()?? 08/01/2024 11:44 RBC 5.20 m/mm3 ()?? 08/01/2024 11:44 Hgb 14.9 Gm/dL ()?? 08/01/2024 11:44 Hct 43.9 % ()?? 08/01/2024 11:44 MCV 84.4 femtoliters ()?? 08/01/2024 11:44 MCH 28.7 pg ()?? 08/01/2024 11:44 MCHC 33.9 Gm/dL ()?? 08/01/2024 11:44 Platelet Count 416 k/mm3 ()?? 08/01/2024 11:44 RDW-SD 40.0 femtoliters ()?? 08/01/2024 11:44 MPV 9.6 femtoliters ()?? 08/01/2024 11:44 Nucleated RBC (Automated) 0.0 #/100 WBC'S ()?? 08/01/2024 11:44 Abs. NRBC 0.0 k/mm3 ()?? 08/01/2024 11:44 Abs. Neut 6.2 k/mm3 ()?? 08/01/2024 11:44 Abs. Lymph 1.1 k/mm3 ()?? 08/01/2024 11:44 Abs. [place] 0.9 k/mm3 ()?? 08/01/2024 11:44 Abs. Eo 0.1 k/mm3 ()?? 08/01/2024 11:44 Abs. Baso 0.1 k/mm3 ()?? 08/01/2024 11:44 Neut % 74.9 % ()?? 08/01/2024 11:44 Lymph % 13.0 % (Low)?? 08/01/2024 11:44 [place] % 10.3 % ()?? 08/01/2024 11:44 Eos % 0.7 % ()?? 08/01/2024 11:44 Baso % 0.7 % ()?? 08/01/2024 11:44 Imm Gran 0.4 % ()?? 08/01/2024 11:44 Abs. Imm Gran 0.0 k/mm3 ()?? 08/01/2024 11:44 ?? CARDIAC High Sensitivity Troponin (HSTnT) 10 ng/L ()?? 08/01/2024 14:58 ?? CHEM GENERAL Sodium 138 mmol/L ()?? 08/01/2024 11:44 Potassium 3.2 mmol/L (Low)?? 08/01/2024 11:44 Chloride 102 mmol/L ()?? 08/01/2024 11:44 Bicarbonate Level 18 mmol/L (Low)?? 08/01/2024 11:44 Anion Gap 18 (High)?? 08/01/2024 11:44 Glucose Level 136 mg/dL (High)?? 08/01/2024 11:44 Glucose, POC 129 mg/dL (High)?? 08/01/2024 11:24 BUN 32 mg/dL (High)?? 08/01/2024 11:44 Creatinine-Blood 2.04 mg/dL (High)?? 08/01/2024 11:44 Estimated GFR Creatinine 37 ML/MIN/1.73 M2 ()?? 08/01/2024 11:44 Calcium 9.2 mg/dL ()?? 08/01/2024 11:44 Magnesium 1.5 mg/dL (Low)?? 08/01/2024 11:44 ? EKG study * Event Display: ECG 12-Lead Authored Date: Please click on pdf link to open report * Event Display: ECG 12-Lead Authored Date: Ventricular Rate: 72 BPM Atrial Rate: 72 BPM P-R Interval: 192 ms QRS Duration: 90 ms Q-T Interval: 442 ms QTC Calculation(Bazett): 483 ms P Pollock: 41 degrees R Pollock: 9 degrees T Pollock: 43 degrees Normal sinus rhythm [place]: [facility] * Event Display: Echocardiogram - Complete Authored Date: Transthoracic Echocardiography Report (TTE) Patient Demographics Patient Name NEERU LINK Date of Study 08/02/2024 Corporate Gender Male Facility Race Ethnicity Date of 1965 Height: 68 inches Age 59 year(s) Weight: 194 pounds Accession Number [id number] BSA: 2.02 m2 Room Number [id number] BMI: 29.5 kg/m2 Referring Physician UNASSIGNED Interpreting Sigifredo Moraes UNASSIGNED Physician Radio Survey Worker Alvaro Sheldon Indications Syncope. Clinical History Hypertension. Diabetes Mellitus. Hyperlipidemia. HUNTER multiple sclerosis Study Data Type of Study TTE procedure:Echo Complete-Doppler, Colorflow, M-Mode. Study Date08/02/2024 Start Time: 09:13 AM Study Location: [facility] Echo Study Status: Echo lab Patient Status: Routine Technical Quality: Adequate Blood Pressure:112/67 mmHg EKG: Normal sinus rhythm HR: 72 bpm 2D Measurements LV Diastolic Dimension: 4.01 cm LV Systolic Dimension: 3.1 cm LV Septum Diastolic: 0.99 cm LV PW Diastolic: 0.92 cm AO Root Dimension: 3.31 cm LA ESV (BP):35.63 ml LVOT Stroke Volume: 61.6 ml LA ESV Index: 18 ml/m2 Stroke Volume Index30.5 ml/m2 LVOT: 2.25 cm Cardiac Index:2.2 l/min/m2 Ascending Aorta:2.9 cm Doppler Measurements AV Peak Velocity: 129 cm/s MV Peak E-Wave: 49.7 cm/s AV Peak Gradient: 6.66 mmHg MV Peak A-Wave: 70.7 cm/s MV E/A Ratio: 0.7 LVOT Peak Velocity: 89.1 cm/s LVOT VTI15.5 cm MV Deceleration Time: 185 msec E' Septal Velocity: 9.03 cm/s PV Peak Velocity: 138 cm/s E' Lateral Velocity: 9.46 cm/s PV Peak Gradient: 7.62 mmHg E/Med E':[id number] E/Lat E':5.2537 Cardiac Anatomy Left Ventricle/Interventricular Septum The left ventricular size is normal. Left ventricular wall thickness is normal. The LV systolic function is normal . The left ventricular ejection fraction is 55-60 %. There are no regional wall motion abnormalities. Normal diastolic function. Left Atrium/Interatrial Septum The left atrium is normal in size. Aortic Valve The aortic valve is trileaflet . The aortic valve appears mildly calcified. There is no aortic stenosis. There is no aortic regurgitation. Mitral Valve The mitral valve opening is normal. There is trivial mitral regurgitation. Aorta The ascending aorta and aortic root are normal in size. Right Ventricle The right ventricle is normal in size. Right ventricular systolic function appears preserved. Right Atrium The right atrium is normal in size. Pulmonic Valve The pulmonic valve appears grossly normal. Tricuspid Valve The tricuspid valve appears normal . There is trace tricuspid valve regurgitation. Pumonary Artery An accurate pulmonary artery pressure could not be obtained. Venous Structures The inferior vena cava appears grossly normal. Pericardium/Extracardiac There is no significant pericardial effusion. Summary The left ventricular size is normal. Left ventricular wall thickness is normal. The LV systolic function is normal . The left ventricular ejection fraction is 55-60 %. There are no regional wall motion abnormalities. Normal diastolic function. The aortic valve is trileaflet . The aortic valve appears mildly calcified. There is no aortic stenosis. There is no aortic regurgitation. The right ventricle is normal in size. Right ventricular systolic function appears preserved. Comparison No prior study available for comparison. Signature * Event Display: Echocardiogram - Complete Authored Date: Cardiology * Event Display: Cardiac Rhythm Strips Authored Date: Note * Saida Bartlett RN: PERFORM Event Display: Discharge/Transfer Note Hospital Authored Date: Nursing Discharge Note Entered On: 08/02/2024 12:59 EST Performed On: 08/02/2024 12:58 EST by Saida Bartlett RN Nursing Discharge Note 2 Discharge Time : 08/02/2024 12:40 EST Discharge Level of Care at Discharge : Home/Custodial/Foster Care Patient Left Unit Via : Ambulatory Patient Accompanied Off Unit with : Responsible adult DC Instructions Provided & Signed by Pt : Yes Patient Understands D/C Instructions : Yes Patient Instructions Discharge Signed : Yes Did Pt have Specialty Bed or Wound Vac : No Saida Bartlett RN - 08/02/2024 12:58 EST * Kay ALBERTO, Chadwick Haynes: PERFORM Event Display: Discharge/Transfer Note Hospital Authored Date: Patient: ??NEERU LINK ? Age:??59 Years?Sex:??Male?:??1965?? Patient Information Discharge Location: D3B Primary Care Physician: Erlinda Sheets MD Admit Date/Time: 08/01/2024 11:19 Discharge Disposition Discharge Disposition: Home: No Services Discharge Diagnosis Syncope/Near syncope ([id number]) Syncope (R55) Diabetes mellitus (E11.9) HTN (hypertension) (I10) Depression (F32.A) HLD (hyperlipidemia) (E78.5) HUNTER on CPAP (G47.33) Multiple sclerosis (G35) DREA (acute kidney injury) (N17.9) Hypokalemia (E87.6) Hypomagnesemia (E83.42) Orthostatic hypotension (I95.1) _ Discharge Medications Atorvastatin (atorvastatin 40 mg oral tablet)?TAKE 1 TABLET BY MOUTH EVERY DAY BuPROpion (buPROPion 150 mg/24 hours (XL) oral tablet, extended release)?TAKE 1 TABLET BY MOUTH EVERY DAY Cholecalciferol (Vitamin D3 2000 intl units oral capsule)?1?capsule?50?Microgram?By Mouth?Daily Citalopram (citalopram 40 mg oral tablet)?TAKE 1 TABLET BY MOUTH EVERY DAY Metformin (metFORMIN 1000 mg oral tablet)?TAKE 1 TABLET BY MOUTH TWICE A DAY Mirtazapine (mirtazapine 7.5 mg oral tablet)?1?tab(s)?7.5?Milligram?By Mouth?Daily at bedtime Ocrelizumab (Ocrevus 300 mg/10 mL intravenous solution)?600?Milligram?IV Infusion?Every6 months Potassium Phosphate-Sodium Phosphate (potassium phosphate-sodium phosphate 250 mg-45 mg-298 mg oraltablet)?1?tab(s)?By Mouth?2 times a day?for 3?Days ? Medications Started Phosphorus supplementation??short-term Mirtazapine 7.5 mg Medications Discontinued HCTZ???irbesartan Doses Changed None Allergies Allergies ?(Active and Proposed Allergies Only) lisinopril? (Severity: Unknown severity, Onset: Unknown) ? PCP Follow-Up/Heads-Up Follow-up ambulatory blood pressure. ??Can consider low-dose antihypertensive as indicated Connect with outpatient resources for depression??and medical therapy Hospital Course 59-year-old male with past medical history significant for multiple sclerosis, hypertension, type 2diabetes, hyperlipidemia, obstructive sleep apnea (on CPAP) who was brought to [facility] on 08/01 following a syncopal event without loss of consciousness. ?? Patient was at a grocery store where he felt dizzy, became diaphoretic and fell onto his buttocks. He was found to have low BP with systolic in 80s, improved with IV fluids (approximately 1.5 L) Of note, he has been experiencing similar episodes in light of low p.o. intake and depressed mood. Patient did take his antihypertensives that morning (hydrochlorothiazide/irbesartan) The color television console monitor has not shown any abnormalities, normal sinus rhythm. No evidence of tachycardia. Remained normotensive. Orthostatic vitals obtained on 08/02 are negative. Given duration of symptoms over few weeks, an echocardiogram was ordered and revealed normal function, no valvular abnormality. Normal aortic valve function with no evidence of stenosis. LVEF 60% with no regional wall motion abnormality. ?? Patient also sustained an acute kidney injury that seems to be improving with creatinine down trended to 1.7. Electrolyte abnormalities including low magnesium and phosphorus which have been repleted. ?? Nutrition consult obtained. Patient encouraged to increase p.o. intake. He is attributing it to lowmood. Started mirtazapine low-dose. He will follow-up with his primary care provider and I have requested repeat kidney function test in 1 week to follow-up for recovery. ?? Patient worked with physical therapy and has been cleared for discharge home. ?? He has been normotensive off his blood pressure medication which I am holding on discharge.?? Also since he had an acute kidney injury, would avoid any CLEVE/ARB.?? Follow-up with your primary care provider Objective Vital Signs?? Temperature: 97.6 DegF (08/02/24 10:25:00) Temperature Route: Oral (08/02/24 10:25:00) Pulse Rate: 75 bpm (08/02/24 10:25:00) Pulse Rate, Lyin bpm (08/02/24 03:59:00) Systolic Blood Pressure, Lyin mm Hg (08/02/24 03:59:00) Diastolic Blood Pressure, Lyin mm Hg (08/02/24 03:59:00) Pulse Rate, Sittin bpm (08/02/24 03:59:00) Systolic Blood Pressure, Sittin mm Hg (08/02/24 03:59:00) Diastolic Blood Pressure, Sittin mm Hg (08/02/24 03:59:00) Pulse Rate, Standin bpm (08/02/24 03:59:00) Systolic Blood Pressure, Standin mm Hg (08/02/24 03:59:00) Diastolic Blood Pressure, Standin mm Hg (08/02/24 03:59:00) Respiratory Rate: 18 br/min (08/02/24 10:25:00) Systolic Blood Pressure: 132 mm Hg (08/02/24 10:25:00) Diastolic Blood Pressure: 80 mm Hg (08/02/24 10:25:00) Blood pressure sites: Arm, left (08/02/24 10:25:00) Mean Arterial Pressure: 97 mm Hg (08/02/24 10:25:00) Pulse Pressure: 52 mm Hg (08/02/24 10:25:00) Oxygen Saturation: 96 % (08/02/24 10:25:00) Mode of Delivery (Oxygen): Room air (08/02/24 10:25:00) Early Warning Score: 2 (08/02/24 10:43:36) ? . Physical Exam Constitutional: Alert, in no distress. Mental Status: Oriented to person, place and time. HEENT: unremarkable Neck: Supple, Full range of motion. Respiratory: Clear to auscultation. No wheezing, rales or rhonchi. Cardiovascular: S1 S2 regular. No murmurs, rubs or gallops. Gastrointestinal: Abdomen soft, non-tender, non-distended. Normal bowel sounds. Neurologic: Cranial nerves II-XII grossly intact. No focal neurological deficits.?? Moves all extremities spontaneously. Sensation intact bilaterally. Skin: No rashes or lesions. No petechiae or purpura.?? Musculoskeletal:?? Normal range of motion. Psychiatric: Normal mood and affect Consultants None Patient Education Titles WebMD Ignite Patient Education - Discharge Instructions for Low Blood Pressure (Hypotension)?? WebMD Ignite Patient Education - Orthostatic Low Blood Pressure (Hypotension)?? WebMD Ignite Patient Education - Causes of Syncope?? WebMD Ignite Patient Education - Counseling for Depression?? Web[employer] Ignite Patient Education - Depression: Tips to Help Yourself?? WebMD Ignite Patient Education - Depression?? Web[employer] Ignite Patient Education - Discharge Instructions for Acute Kidney Injury?? Patient Instructions You were admitted to the hospital with a low blood pressure. ??Also seemed?Significantly dehydrated and therefore got IV fluids. You were found to have an acute kidney injury with elevated creatinine (marker of kidney function) this is now improving. Low phosphorus and magnesium that is concerning for poor oral intake ?? While these have improved, I would encourage improving p.o. intake. Also follow-up with your primary care provider and perhaps consider medication for depression and appetite.?? I am sending a prescription for mirtazapine that may help with appetite. ?? Your echocardiogram was normal Post Discharge Care Diet: ??Regular Diet ?? Activity: ??Independent. Increase as tolerated. ?? Discharge ?08/02/24 12:10:00 EST ?Order Comment:?? Discharge Prescriptions ?ePrescribed, 08/02/24 12:10:00 EST ?Order Comment:?? Results ECHO ??Summary ??The left ventricular size is normal. Left ventricular wall thickness is ??normal. The LV systolic function is normal . The left ventricular ejection ??fraction is 55-60 %. There are no regional wall motion abnormalities. Normal ??diastolic function. ?The aortic valve is trileaflet . The aortic valve appears mildly calcified. ??There is no aortic stenosis. There is no aortic regurgitation. ?The right ventricle is normal in size. Right ventricular systolic function ??appears preserved. [1] ?? 35??minutes spent on discharge [1]??Echo Complete-Doppler, Colorflow, M-Mode; Sigifredo ALBERTO, Dimitry Yadav 08/02/2024 09:13 EST * Saida Bartlett RN: PERFORM Event Display: Patient Education/Instruction Authored Date: [id number] Inpatient Adult Discharge Instructions. [place] [id number] Name: NEERU LINK : 1965?? Visit: 08/01/2024 11:19?? Current Date: 08/02/2024 12:21 ?? Account: [id number]?? Inpatient Adult Discharge Instructions We would like to thank you for allowing us to assist you with your healthcare needs. The following includes patient education materials and information regarding your injury/illness. Our entire staffstrives to provide an excellent experience for our patients and their families. PLEASE ENSURE YOU FOLLOW-UP PER THE INSTRUCTIONS BELOW! ?? YOUR OPINION IS IMPORTANT TO US! Please complete the survey you may receive by mail or email. Your feedback will be used to make improvements to the healthcare experiences of our patients and their families. Surveys are administered by [employer] ?? If further treatment with your primary care physician or another doctor is recommended, it is important for you to keep the appointment. Call your primary care physician or return to the Emergency Department immediately if your condition worsens, fails to improve, or new symptoms develop. If you need to find a doctor, you can call [facility] for a referral at [phone] or toll free at [phone]) or log in to [email or web address].. ?? [facility], in keeping with [facility] guidance, no longer requires face masks for staff, patientsor visitors in most situations. Similiar to time spent indoors at other locations, there is the chance that you were exposed to repiratory viruses during your time with us (such as flu or COVID-19). If you develop symptoms concerning for a viral respiratory infection, please seek testing (and treatment if indicated) from your medical provider or home test kit. ?? You can view and manage your care through the patient portal or by using a health care lisandro of your choosing. [employer] is a website that allows you to securely view your medical information including your hospital discharge summary, office visit summaries, medications and follow-up visits. You can also request appointments, renew medications, and request access to your medical information using a health care lisandro of your choosing, or just ask a question. You can enroll at [email or web address] or register during your next office visit. You have been discharged from [facility], Patient Care Unit: D3B??. If you have any questions regarding these instructions, including results of studies pending, afteryou leave, please call us and we will be happy to assist you 04/04. [facility] Your Care Team Attending Physician Kay ALBERTO, Chadwick Haynes?? Consulting Providers Kay ALBERTO, Chadwick Haynes?? Discharging Providers Kay ALBERTO, Chadwick Haynes Reason for Your Visit From grocery store where pt felt dizzy , became diaphoretic, fell onto his buttocks. +syncopal episode. Pt attempted to get up, but was unable to due ot the dizziness and weakness. Pt found to be hypotensive to 86/52, improved with fluids.?? Your Diagnosis DREA (acute kidney injury) Depression Diabetes mellitus HLD (hyperlipidemia) HTN (hypertension) Hypokalemia Hypomagnesemia Multiple sclerosis Orthostatic hypotension HUNTER on CPAP Syncope Syncope/Near syncope Tests Performed Below is a partial list of the tests performed during your hospitalization. You may have had other tests and procedures not included in this list. Please discuss all test results with your provider. Basic Metabolic Panel CBC CBC w/ Differential GLUCOSE POC High??Sensitivity??Troponin T Magnesium Level Phosphorus Level Troponin T, High Sensitivity Basic Metabolic Panel?? CBC?? CBC w/ Differential?? Glucose POC?? High??Sensitivity??Troponin T?? Magnesium Level?? Phosphorus Level?? Primary Care Provider Erlinda Sheets MD? Advance Directive Health Care Proxy on File No Patient refuses to discuss Discharge Vitals Temperature: 97.6 DegF Weight: 88.4 kg Pulse Rate: 75 bpm ?? Respiratory Rate: 18 br/min ?? Systolic Blood Pressure: 132 mm Hg ?? Diastolic Blood Pressure: 80 mm Hg ?? Oxygen Saturation: 96 % ?? Studies Pending All studies ordered during this hospital stay have been completed unless listed below. Please discuss all pending results with your provider listed above in these instructions. ?? Basic Metabolic Panel?? Magnesium Level?? What to do next Instructions From Your Doctor You were admitted to the hospital with a low blood pressure. ??Also seemed?Significantly dehydrated and therefore got IV fluids. You were found to have an acute kidney injury with elevated creatinine (marker of kidney function) this is now improving. Low phosphorus and magnesium that is concerning for poor oral intake ?? While these have improved, I would encourage improving p.o. intake. Also follow-up with your primary care provider and perhaps consider medication for depression and appetite.?? I am sending a prescription for mirtazapine that may help with appetite. ?? Your echocardiogram was normal? Orders??:Regular Diet :Independent. ??Increase as tolerated.? 08/02/24 12:10:00 EST?? Prescriptions??, ??08/02/24 12:10:00 EST?? Discharge Medications NEERU LINK :1965 Visit Date:08/01/2024 Medications: Please continue your medications until treatment is completed or stopped by your provider. Medications not listed below should be discontinued. Discuss any questions related to medications with your provider. What How Much When Instructions Next Dose New Mirtazapine (mirtazapine 7.5 mg oral tablet) 1 tab(s) Oral Daily at Bedtime Pickup at [place] [id number] start tonight New Potassium Phosphate-Sodium Phosphate (potassium phosphate-sodium phosphate 250 mg-45 mg-298 mg oral tablet) 1 tab(s) Oral Twice a day Duration: 3 Days Pickup at [facility] this evening Unchanged Atorvastatin (atorvastatin 40 mg oral tablet) TAKE 1 TABLET BY MOUTH EVERY DAY ?? 08/03 Unchanged BuPROpion (buPROPion 150 mg/ 24 hours (XL) oral tablet, extended release) TAKE 1 TABLET BY MOUTH EVERY DAY ?? 08/03 Unchanged Cholecalciferol (Vitamin D3 2000 intl units oral capsule) 1 capsule Oral Daily 08/03 Unchanged Citalopram (citalopram 40 mg oral tablet) TAKE 1 TABLET BY MOUTH EVERY DAY ?? 08/03 Unchanged Metformin (metFORMIN 1000 mg oral tablet) TAKE 1 TABLET BY MOUTH TWICE A DAY ?? resume home schedule Unchanged Ocrelizumab (Ocrevus 300 mg/ 10 mL intravenous solution) 600 Milligram Intravenous Infusion Every 6 months resume home schedule Pharmacy Information [facility]: [address], [place] [id number] [phone] ?? What When Comments Stop Taking Hydrochlorothiazide-Irbesartan (hydrochlorothiazide-irbesartan 12.5 mg-150 mg oral tablet) TAKE 1/ 2 TABLET BY MOUTH ONCE DAILY FOR 30 DAYS 90 ?? Prescription Given During Visit Mirtazapine (mirtazapine 7.5 mg oral tablet) - 1 tablet = 7.5 mg, By Mouth, Daily at bedtime, # 30 tablet, 0 Refills, [facility], [address] [place] [address] [phone]?? Potassium Phosphate-Sodium Phosphate (potassium phosphate-sodium phosphate 250 mg-45 mg-298 mg oraltablet) - 1 tablet, By Mouth, 2 times a day, # 6 tablet, 0 Refills, [facility] [place] [phone]?? Laboratory Results Below is a partial list of the most recent Laboratory test results done prior to this discharge. You may have had other tests and procedures not included in this list. Please discuss all test resultswith your provider. Basic Metabolic Panel (08/02/2024) ???Sodium - 139 mmol/L???Potassium - 3.8 mmol/L???Chloride - 104 mmol/L???Bicarbonate Level - 23 mmol/L???Anion Gap - 12???Glucose Level - 124 mg/dL???BUN - 29 mg/dL???Creatinine-Blood - 1.71 mg/dL???Estimated GFR Creatinine - 46 ML/MIN/1.73 M2???Calcium - 9.1 mg/dL CBC (08/02/2024) ???WBC - 12.4 k/mm3???RBC - 5.07 m/mm3???Hgb - 14.5 Gm/dL???Hct - 44.2 %???MCV - 87.2 femtoliters???MCH - 28.6 pg???MCHC - 32.8 Gm/dL???Platelet Count - 362 k/mm3???RDW-SD - 42.2 femtoliters???MPV - 9.3 femtoliters???Nucleated RBC (Automated) - 0.0 #/100 WBC'S???Abs. NRBC - 0.0 k/mm3 CBC w/ Differential (08/01/2024) ???WBC - 8.2 k/mm3???RBC - 5.20 m/mm3???Hgb - 14.9 Gm/dL???Hct - 43.9 %???MCV - 84.4 femtoliters???MCH - 28.7 pg???MCHC - 33.9 Gm/dL???Platelet Count - 416 k/mm3???RDW-SD - 40.0 femtoliters???MPV - 9.6 femtoliters???Nucleated RBC (Automated) - 0.0 #/100 WBC'S???Abs. NRBC - 0.0 k/mm3???Abs. Neut - 6.2 k/mm3???Abs. Lymph - 1.1 k/mm3???Abs. [place] - 0.9 k/mm3???Abs. Eo - 0.1 k/mm3???Abs. Baso - 0.1 k/mm3???Neut % - 74.9 %???Lymph % - 13.0 %???[place] % - 10.3 %???Eos % - 0.7 %???Baso % - 0.7 %???Imm Gran - 0.4 %???Abs. Imm Gran - 0.0 k/mm3 GLUCOSE POC (08/02/2024) ???Glucose, POC - 101 mg/dL High??Sensitivity??Troponin T (08/01/2024) ???High Sensitivity Troponin (HSTnT) - 8 ng/L Magnesium Level (08/02/2024) ???Magnesium - 1.8 mg/dL Phosphorus Level (08/02/2024) ???Phosphorus - 2.3 mg/dL Troponin T, High Sensitivity (08/01/2024) ???High Sensitivity Troponin (HSTnT) - 10 ng/L You will be contacted within 72 hours with your results. Allergies (NKA means No Known Allergies) lisinopril Problems No qualifying data available Education Materials Below is the list of Educational Leaflet Providered with your Discharge Instructions. WebMD Ignite Patient Education - Discharge Instructions for Low Blood Pressure (Hypotension)?? WebMD Ignite Patient Education - Orthostatic Low Blood Pressure (Hypotension)?? WebMD Ignite Patient Education - Causes of Syncope?? WebMD Ignite Patient Education - Counseling for Depression?? WebMD Ignite Patient Education - Depression: Tips to Help Yourself?? WebMD Ignite Patient Education - Depression?? WebMD Ignite Patient Education - Discharge Instructions for Acute Kidney Injury?? Valuables and Belongings I fully understand and agree that [facility] accepts no responsibility for all my personal property including clothing, toilet articles, radios, jewelry, dentures, hearing aids, rings, money, or any other property that is in my possession or is brought to me after admission. I understand certain valuables may be placed in a hospital safe for a short period of time. I understand that the hospital is not liable for loss or damage due to accident, fire, or other natural occurrence while said property is in the safe. I accept full responsibility for any personal property that I keep with me, and will not hold the hospital responsible in case of loss or disappearance. I acknowledge that i have been encouraged to send valuables and belongings home. ?? Review of Valuable and Belonging List: With patient, With witness Date for Pt to Sign Valuables/Belongings: 08/02/24 01:18:00 ?? Other Discharge Information ? Pulmonary Rehab Status?? Pulmonary Rehab Discharge Status?? Respiratory Rate: 18 br/min ? Common Emergency Awareness Tips IS IT A STROKE? Act FAST and Check for these signs: FACE Does the face look uneven? ARM Does one arm drift down? SPEECH Does their speech sound strange? TIME Call at any sign of stroke ?? Heart Attack Signs Chest discomfort: Most heart attacks involve discomfort in the center of the chest and lasts more than a few minutes, or goes away and comes back. It can feel like uncomfortable pressure, squeezing, fullness or pain. Discomfort in upper body: Symptoms can include pain or discomfort in one or both arms, back, neck, jaw or stomach. Shortness of breath: With or without discomfort. Other signs: Breaking out in a cold sweat, nausea, or lightheaded. Remember, MINUTES DO MATTER. If you experience any of these heart attack warning signs, call to get immediate medical attention! ?? Smoking can increase your chances of developing chronic health problems and can cause harmful effects to other family members in your house. If you smoke, you are strongly encouraged to quit. Please call [employer] at [phone] or [phone] ([phone]) or log in to [email or web address] for referrals to smoking cessation programs. ?? 611 Suicide & Crisis Lifeline is available 04/04 if you or someone you know needs to find a reason to keep living. By calling 552 you'll be connected to a skilled, trained counselor at a crisis center in your area. INPATIENT DISCHARGE INSTRUCTIONS SIGNATURE PAGE NEERU LINK Location:[facility] Registration Date and Time:08/01/2024 11:19 EST Primary Care Physician: Erlinda Sheets MD, Attending Physician: Kay ALBERTO, Chadwick Haynes, I JOSENEERU, have received the above patient education materials/instructions and have verbalized understanding. If ambulance or transport services are being used I further acknowledge being given a choice of service. ?? If you need to contact me, please call me at this number: . Patient/Visual Journalist Name: Patient/Visual Journalist Signature: Relationship to Patient: Witness Name/Signature: Date: * Chadwick Villanueva MD: PERFORM Event Display: Patient Education Leaflets Authored Date: [id number] Discharge Instructions for Low Blood Pressure (Hypotension) ?? [id number] Discharge Instructions for Low Blood Pressure (Hypotension) You have been diagnosed with low blood pressure (hypotension). When you have hypotension, your blood pressure is lower than normal. Low blood pressure can make you feel dizzy or faint. This conditionis sometimes a side effect of taking certain medicines, including medicines for high blood pressure(hypertension). It can also result from medical conditions such as dehydration. Hypotension has many possible causes. Sometimes the cause is unknown, and you will need follow- up visits and tests. Home care These steps can help manage your condition: ??? Follow your healthcare provider???s instructions. Go to all your follow up appointments. ??? Rest in bed and ask for help with daily activities until you feel better. You may need to slowly increase the amount of time you spend sitting or doing light activity. ??? Don???t drive while your blood pressure is not controlled. ??? Be careful when you getup from sitting or lying down. o Take your time. Sudden movements can cause dizziness or fainting. o When you first sit up after lying down, be sure to sit up for at least 30 seconds or so before getting up to walk. o Place your feet on the floor before standing. ??? Tell your??healthcare provider about the medicines you are taking. Many kinds of medicines trigger low blood pressure. ??? Limit your alcohol intake to no more than 2 drinks a day for men and 1 drink a day for women. Alcohol can dehydrate you even further. It can also interfere with the effectiveness of medicines. ??? Prevent dehydration by drinking plenty of fluids, unless otherwise instructed by your healthcare provider. ??? Learn to take your own blood pressure. Keep a record of your results. Ask your healthcare provider which readings mean that you need medical attention. ??? Tell your family members to call an ambulance??if you become unconscious. Ask them to??learn CPR. ?? Follow-up care Make a follow-up appointment, or as advised. ?? Call 911 Call 911 right away if you have: ??? Chest pain ??? Shortness of breath ?? When to call your healthcare provider Call your healthcare provider right away if you have any of the following: ??? Dizziness or fainting spells ??? Black, maroon, or tarry stools ??? Irregular heartbeat ??? Neck pain or stiffness ??? Severe upper back pain ??? Diarrhea or vomiting that doesn???t go away ??? Inability to eat or drink ??? Burning sensation when you pee ??? Urine with a strong, unpleasant odor ??? Fainting with exercise ?? Last Reviewed Date: 2021 ?? [id number] The [employer]. All rights reserved. This information is not intended as a substitute for professional medical care. Always follow your healthcare professional's instructions. ?? * Kay ALBERTO, Chadwick Haynes: PERFORM Event Display: Patient Education Leaflets Authored Date: [id number] Orthostatic Low Blood Pressure (Hypotension) ?? [id number] Orthostatic Low Blood Pressure (Hypotension) A blood pressure reading is made up of 2 numbers that are measured in millimeters of mercury (mmHg). There is a top number over a bottom number. The top number is the systolic pressure. The bottom number is the diastolic pressure. A normal blood pressure is a systolic pressure less than 120 mmHg over a diastolic pressure less than 80 mmHg.??Low blood pressure or hypotension is generally defined as a systolic blood pressure less than 90 mmHg. However, any drop in blood pressure greater than 40 mmHg from your normal baseline may be considered low blood pressure for you. Generally, the lower theblood pressure you have the better. However, it becomes a problem when it becomes too low and causes symptoms. Orthostatic hypotension??is a type of low blood pressure that occurs only when you change position from lying or sitting to standing. Any drop in systolic pressure of 20 mmHg or diastolic pressure of10 mm Hg when standing is significant. This drop in blood pressure can cause dizziness, lightheadedness, or fainting. Orthostatic hypotension is most commonly related to low blood volume or an abnormal neurological reflex. It's also more common as we age. However, it can be a sign of an underlying illness that may need further tests. Some medicines can cause orthostatic hypotension. These include: ??? High blood pressure medicines ??? Water pills (diuretics) ??? Some heart medicines ??? Some antidepressants ??? Pain, anxiety, sedative, and sleep medicines Other causes include: ??? Dehydration from vomiting, diarrhea, or not getting enough fluids ??? Severe infection ??? Highfever ??? Blood loss, such as bleeding from the stomach or intestines ??? Neurological diseases that affect the autonomic nervous system Treatment will depend on what is causing your low blood pressure. Home care Follow these guidelines when caring for yourself at home: ??? Rest until your symptoms get better. ??? Change positions slowly from lying to standing.??When getting out of bed, sit on the side of thebed with your legs down for at least 30 seconds before standing. This gives your body time to adjust to the position change. ??? Follow the treatment plan described by your healthcare provider. ?? Follow-up care Follow up with your healthcare provider, or as advised. ?? When to get medical advice Call your healthcare provider right away if any of these occur: ??? Mild dizziness or lightheadedness ??? Small amount of black or red color, or blood, in your stools or vomit ??? Diarrhea or vomiting that doesn???t go away ??? Not being able to eat or drink ??? Fever of 100.4??F (38??C) or higher, or as advised by your provider ??? Burning feeling when you pee??? Bad-smelling pee Call 911 Call 911, or get immediate medical care at the nearest emergency room if any of these occur: ??? Fainting; or severe dizziness or lightheadedness ??? Large amount of black or red color, or blood, in your stools or vomit ??? Abnormal chest pain or trouble breathing ?? Last Reviewed Date: 2021 ?? [id number] The [employer]. All rights reserved. This information is not intended as a substitute for professional medical care. Always follow your healthcare professional's instructions. ?? * Kay ALBERTO, Chadwick Haynes: PERFORM Event Display: Patient Education Leaflets Authored Date: [id number] Causes of Syncope ?? 93687 Causes of Syncope Syncope (fainting) has many causes. Sometimes it's not serious. In other cases, it's a sign of a heart problem. But treatment can help. How to say it [id number] ?? When syncope is not serious Most causes of syncope are not serious and may be related to: ??? Strong feelings, such as anxiety or fear. A nerve signal may briefly change your heart rate and lower your blood pressure too much. ??? Standing for too long. Standing will cause blood to pool in your legs. When this happens, your brain may not get all the blood it needs. ??? Standing up too fast. Your blood pressure may not adjustfast enough to changes in posture and may drop too low. Certain medicines can also cause this problem. Some medicines that can cause a drop in blood pressure include diuretics, blood pressure medicines, and medicines for chest pain. ??? Reaction to normal body functions. When you go to the bathroom, have gastrointestinal discomfort, upset stomach (nausea), or pain, your heart may have a natural reflex to slow down and lower blood pressure. This can result in syncope. This may also follow exercise, eating, laughter, weight lifting, or playing musical instruments like the trumpet or trombone. ?? When heart trouble causes syncope A heart problem can lower the amount of oxygen-rich blood that gets to the brain. Heart trouble canbe serious and even life-threatening if not treated. Some of these conditions include: ??? A slow heart rate. Electrical signals tell the chambers of the heart when to pump. But the signals may be slowed or blocked (heart block) as they travel on the heart???s electrical pathways. Thiscan be caused by aging, scarred heart tissue, or damage from heart disease. When the heart rate slows, not enough blood is pumped. ??? A fast heart rate. Some things can make the heart race. For instance, a heart attack??can create abnormal electrical signals. These signals can make the heart suddenly beat very fast. The heart pumps before the chambers can adequately fill with blood. So less blood gets to the brain and other parts of the body. Illegal drugs, certain medicines, heart disease, taylor inherited condition can also cause this. ??? A heart valve problem. Blood travels through the chambers of the heart as it pumps. Heart valves open and close to help move blood in the right direction. But a hardened or scarred valve may not open or close fully. As a result, less blood is pumped through the heart to the brain and body. Most often, syncope occurs when a person's aortic valve is narrowed and they do strenuous activity. ??? A heart muscle problem. Some people develop a thickened heart muscle that blocks blood flow out of the heart to the body (called hypertrophic cardiomyopathy). Being dehydrated and having this condition can raise the risk for syncope. ??? A cardiovascular problem. Blood clots in your lungs or sudden increase in blood pressure in the vessels in the lungs can also prevent correct flow of oxygenated blood to the brain. Whatever the cause of syncope, it's important to see your healthcare provider. You may need to be seen by a machine tool technology instructor or neurologist. If you have syncope and haven't been seen by a provider yet, it's important to: ??? Not drive ??? Not use heavy machinery ??? Not do activities where you could fall and hurt yourself ?? Last Reviewed Date: 2023 ?? [id number] [employer]. All rights reserved. This information is not intended as a substitute for professional medical care. Always follow your healthcare professional's instructions. ?? Patient Care team information Care Team Personnel Name: Saida Bartlett RN Position: S RN Member Role: Primary Care Nurse Name: Erlinda Sheets MD Position: Reference Physician Member Role: PCP Address: [address] [place], [place] [address] Telecom: Care Team Related Persons Name: SHIRLEY LINK Insurance Providers Guarantor name: [employer] Health Plan Information #: 1 Payer: [facility] OPT Member Number: [id number] Policy Number: NA Group Number: [id number] Health Plan Information #: 2 Payer: [facility] [employer] ADV Member Number: [id number] Policy Number: NA Group Number: [id number]
== END 2024-08-15 08:37 | disposition home or self-care (01) ==
PROVIDERS: PCP Internal Medicine
DX: I10 Essential (primary) hypertension (principal); E11.65 Type 2 diabetes mellitus with hyperglycemia; M54.50 Low back pain, unspecified

== ENCOUNTER 2024-10-04 10:05 | Outpatient (AMB) | payer OTHER, SELFPAY ==
[2024-10-04 10:09] VITALS: BP 140/72; PULSE 78; O2SAT 94; BMI 30.1
--- NOTE | 2024-10-04 10:09 | A.OFFPC_ITS ---
Vital Signs 10/04/24 10:09 Height 5 ft 8 in Weight 198 lb BMI 30.1 BP 140/72 H Blood Pressure Location Lt brachial Position Sitting Pulse 78 Pulse Source Pulse Oximeter Pulse Oximetry (%) 94 Oxygen Delivery Method Room Air Intake Visit Reasons: Annual exam Allergies lisinopril [LISINOPRIL] Allergy (Mild, Verified 10/04/24 10:10) SCRATCHY THROAT teriflunomide Allergy (Mild, Verified 10/04/24 10:10) Rash Medication List - Last Reconciled 10/04/24 by Erlinda Sheets MD atorvastatin 40 mg PO DAILY bupropion HCl XL 150 mg PO QAM cholecalciferol (vitamin D3) 4,000 units PO DAILY citalopram 40 mg PO DAILY losartan 25 mg PO DAILY metformin 1,000 mg PO BID mirtazapine 7.5 mg PO BEDTIME ocrelizumab (Ocrevus) 600 mg IV [id number] Tobacco use date assessed: 10/04/24 Dental Screening Dental Screen Date: 10/04/24 Did you have a dental visit in the last 12 months?: Yes Did you have a dental problem in the last 6 months where you did not have access to dental care?: No Was dental information given to patient?: Patient has dentist HPI Annual exam HPI Details syncope 07/2024 dehydrated. occ dizzy has BPPV, has hearing The patient is a 59-year-old male presenting with a follow-up for chronic conditions including multiple sclerosis, hypertension, and type 2 diabetes mellitus. The patient has been diagnosed with multiple sclerosis and is currently on Ocrevus for management. Recent neurologist notes have recommended obtaining a cervical MRI, which is due today. The patient monitors his blood pressure intermittently at home, and it has been noted as elevated with readings around 140/72 mmHg. Hypertension management has previously involved transitioning from lisinopril to losartan due to an allergic reaction with rash. The patient has a history of dehydration indicated by an episode of passing out, which was attributed to low blood pressure and insufficient fluid intake. For diabetes management, the patient is on metformin 1000 mg twice daily, which has been causing diarrhea. The patient reports a history of occasional bouts of diarrhea since June. His most recent A1c was 6.1%, indicating controlled glucose levels. The patient has experienced mild hearing loss, which has been attributed to but not confirmed as needing a hearing aid. Additionally, the patient uses a CPAP device for obstructive sleep apnea, and it has been beneficial, though he expressed issues obtaining a new machine due to prior nasal congestion. There are no new diagnoses or surgeries reported since the last visit. - Received pneumococcal vaccine, tetanus shot, and shingles vaccine. - Advised on fluid intake for dehydratio n prevention and sugar regulation. - Discussed blood pressure management an d home monitoring. - Screening for high kidney function and adjustment of diabetes medication planned. - Counseling for infection prevention, p articularly influenza, COVID-19, RSV, and norovirus. - Does not smoke or consume alcohol. - Experienced weight loss unintentionall y. - Monitors blood pressure at home interm ittently. - Reports eating a regular diet, though has been advised to improve fluid intake. - Cardiovascular: Reports hypertension. - Gastrointestinal: Reports regular bout s of diarrhea; denies nausea, vomiting. - Neurological: Denies new neurological symptoms associated with MS. - Respiratory: Reports use of CPAP; alverto es chest pain or persistent shortness of breath. - Labs: A1c 6.1% (indicating controlled diabetes) - Tests: Awaiting cervical MRI for multi ple sclerosis management [facility] Medical History Sleep difficulties Snoring Excessive daytime sleepiness Tinnitus Colon cancer screening Esophageal bleed, non-variceal Surgical History No pertinent past surgical history Social History Housing: House Alcohol intake: never Patient Tobacco Use Status: Never used Tobacco Tobacco use type: Cigarette e-Cigarette/Vaping Use: Never Used Second Hand Smoke Exposure: No service: No Current occupational status: retired and disabled Cognitive needs: No Hearing needs: No Vision needs: Yes Questionnaire PHQ-9 Over the last 2 weeks, how often have you been bothered by any of the following problems? 1. Little interest or pleasure in doing things: not at all 2. Feeling down, depressed, or hopeless: not at all 3. Trouble falling or staying asleep, or sleeping too much: several days 4. Feeling tired or having little energy: several days 5. Poor appetite or overeating: several days 6. Feeling bad about yourself - or that you are a failure or have let yourself or your family down: not at all 7. Trouble concentrating on things, such as reading the newspaper or watching television: not at all 8. Moving or speaking so slowly that other people could have noticed. Or the opposite - being so fidgety or restless that you have been moving around a lot more than usual: not at all 9. Thoughts that you would be better off or of hurting yourself in some way: not at all Total score: 3 Source: Developed by Drs. Esvin Roman, Denise Zarate, Nam Ku and colleagues, with an educational jose francisco from [employer]. Thrive Questionnaire Date Thrive assessed: 09/27/24 I am a: Patient What is your living situation today?: I have a steady place to live Within the past 12 months, did the food you bought not last and you didn't have the money to get more?: Never true Within the past 12 months, did you worry whether your food would run out before you got money to buy more?: Never true Do you have trouble paying for medicines?: No Do you have trouble getting transportation to medical appointments?: No Do you have trouble paying your heating and electricity bill?: I choose not to answer this question Do you have trouble taking care of your child, family member or friend?: No Do you have trouble with day-to-day activities such as bathing, preparing meals, shopping, managing finances, etc.?: No Are you currently unemployed and looking for a job?: No Are you interested in more education?: No Please select the resources that you would like help with: None Currently or been in a relationship where the following occur: No concerns reported THRIVE Score: 0 AUDIT C Alcohol Use Questionnaire (AUDIT-C) 1. How often do you have a drink containing alcohol?: Never 3. How often do you have six or more drinks on one occasion?: Never Total Score: 0 NISHA-7 AMB Questionnaire NISHA-7 Date NISHA - 7 assessed: 10/04/24 Feeling nervous, anxious, or on edge: 1 = Several days Not being able to stop or control worryin = Several days Worrying too much about different things: 1 = Several days Trouble relaxin = Several days Being so restless that it is hard to sit still: 1 = Several days Becoming easily annoyed or irritable: 1 = Several days Feeling afraid as if something awful might happen: 0 = Not at all Total NISHA-7 score (0-4 normal; 5-9 mild; 10-14 moderate; 15-21 severe): 6 Source: Developed by Drs. Esvin Roman, Denise Zarate, Nam Ku and colleagues, with an educational jose francisco from [employer]. Review of Systems Const Denies poor appetite and Denies weakness Eyes Denies no additional complaints ENT Reports Normal hearing present, Denies dizziness, Denies nasal congestion, Denies tinnitus and Denies sore throat Card Denies chest pain, Denies syncope, Denies rapid heart rate and Denies dyspnea Resp Denies cough and Denies dyspnea GI Denies change in stool character, Reports constipation, Denies diarrhea, Denies nausea and Denies vomiting Denies dysuria and Denies urinary frequency Neuro Reports Normal hearing present, Denies confusion, Denies dizziness, Denies syncope and Denies weakness Psych Denies confusion Physical exam (Primary Care) Vital Signs: Last Vital Signs Pulse 78 10/04/24 10:09 BP 140/72 H 10/04/24 10:09 Pulse Ox 94 10/04/24 10:09 Oxygen Delivery Method Room Air 10/04/24 10:09 BMI result Body Mass Index 30.1 Tobacco/Smoking Status: Tobacco use Status Tobacco use date assessed 10/04/24 10/04/24 10:10 Patient Tobacco Use Status Never used Tobacco 10/04/24 10:10 Tobacco use type Cigarette 10/04/24 10:10 e-Cigarette/Vaping Use Never Used 10/04/24 10:10 PHQ-9: PHQ-9 Score PHQ-9: Total score 3 10/04/24 10:59 Thrive Assessment: Date of Thrive Assessment Date Thrive assessed 09/27/24 10/04/24 10:10 Currently or been in a relationship where the following occur: No concerns reported Const General: alert and awake; No confusion Orientation/consciousness: No confusion HENMT Head: Yes normocephalic Ears: external ears normal and TM's normal bilaterally Face and sinus: Yes normal facial exam Mouth: moist mucous membranes Throat: Yes tonsils normal Eyes Conjunctivae: conjunctivae normal Pupils: Equal, round and reactive pupils present and Pupil accommodation reflex normal Direct Ophthalmoscopy: normal light reflex Neck Neck: No lymphadenopathy Thyroid: Thyroid normal Chest Chest palpation & inspection: normal inspection of the chest Resp Effort & Inspection: normal respiratory effort and no audible wheezes Auscultation: clear to auscultation bilaterally, no crackles, no wheezes and lung sounds not diminished Cardio Rate: regular rate Rhythm: regular rhythm Peripheral pulses: radial pulses present and dorsalis pedis present GI Other: guaiac negagtive, prostate N pin prick good, pedal pulses weak but equal Palpation (GI): no masses Auscultation: normal bowel sounds and normoactive bowel sounds Skin General skin exam: no rashes or lesions noted Rashes: no rashes Neuro General: deep tendon reflexes 2+ bilaterally and No confusion Cranial nerves: Yes Equal, round and reactive pupils present, Yes Midline tongue present, Yes Normal hearing present and Yes Ability to bilaterally elevate shoulders present Cognition (Neuro): normal cognition Gait exam (Neuro): Normal gait present Motor exam (neuro): 5/5 motor strength present throughout Deep tendon reflexes (DTR's): Right brachioradialis reflex intensity grade: 2+, Left brachioradialis reflex intensity grade: 2+, Right patellar reflex intensity grade: 2+ and Left patellar reflex intensity grade: 2+ Extrem General: No edema Results AMB Hemoglobin A1c 2 AMB Hemoglobin A1c 6.1 % Last Edit by Francine Briceño CMA on 10/04/24 10 :56 Results Reviewed Results Reviewed: Laboratory Last Values Hgb A1c (Clinic) 6.1 % (4.0-6.0) H 10/04/24 10:11 Coding Level of Care Code Est Pt Prev Care 40-64y(29360) Diagnoses Annual physical exam Z00.00 Relapsing remitting multiple sclerosis G35 Type 2 diabetes mellitus with hyperglycemia, without long-term current use of insulin E11.65 Diabetes mellitus supervisor intermediates insulin use: without supervisor intermediates use Primary hypertension I10 Hypertension type: primary hypertension Hypercholesterolemia E78.00 Dysthymia F34.1 Obstructive sleep apnea G47.33 Dehydration E86.0 Diarrhea R19.7 Assessment & Plan Assessment & Plan (1) Annual physical exam: Code(s): Z00.00 - Encounter for general adult medical examination without abnormal findings Category: Medical (2) Relapsing remitting multiple sclerosis: Code(s): G35 - Multiple sclerosis Category: Medical (3) Type 2 diabetes mellitus with hyperglycemia: Comment: [facility] Code(s): E11.65 - Type 2 diabetes mellitus with hyperglycemia Category: Medical Qualifiers: Diabetes mellitus mcfp insulin use: without supervisor intermediates use Qualified Code(s): E11.65 - Type 2 diabetes mellitus with hyperglycemia Plan: due to diarrhea and noted creatinine 1.7- will retest , advised increase oral fluids decrease metformin (4) Hypertension: Code(s): I10 - Essential (primary) hypertension Category: Medical Qualifiers: Hypertension type: primary hypertension Qualified Code(s): I10 - Essential (primary) hypertension (5) Hypercholesterolemia: Code(s): E78.00 - Pure hypercholesterolemia, unspecified Category: Medical (6) Dysthymia: Comment: [facility] Code(s): F34.1 - Dysthymic disorder Category: Medical (7) Obstructive sleep apnea: Comment: cannot tolerate CPAP (09/2024 using now) Code(s): G47.33 - Obstructive sleep apnea (adult) (pediatric) Category: Medical (8) Dehydration: Code(s): E86.0 - Dehydration Category: Medical (9) Diarrhea: Code(s): R19.7 - Diarrhea, unspecified Category: Medical Plan - Continue Ocrevus for multiple sclerosis management. Ensure the patient completes scheduled cervical MRI. - Adjust hypertension medication based on home BP monitoring. Continue losartan with planned follow-up. - For diabetes management, reduce metformin to 500 mg due to diarrhea and maintain current glucose monitoring. - Advise increased fluid intake to prevent dehydration and manage blood pressu re. - Continue CPAP therapy for obstructive sleep apnea and address equipment needs. - Recommend ENT consultation if hearing loss becomes more significant or bothersome. - Obtain comprehensive renal function tests given history of Type 2 Diabetes and previous test results. I discussed the management of his multiple sclerosis with the continuation of Ocrevus and the importance of obtaining a cervical MRI. We reviewed his blood pressure management, including the adverse reaction to lisinopril and transition to losartan, and emphasized the significance of home monitoring. Regarding diabetes management, we agreed to decrease metformin due to its side effect of diarrhea. I discussed the importance of hydration for both blood pressure control and preventing further dehydration episodes. I reviewed the patient?s use of CPAP for obstructive sleep apnea and confirmed the positive impact of treatment. We also addressed the mild hearing loss and agreed to monitor without immediate intervention. Finally, anticipated blood work was planned to reassess kidney function and glucose levels. - Take your medications as prescribed. - Monitor your blood pressure at home two to three times a week, sit calmly before measuring, and note down the readings. - Ensure to stay hydrated daily with a minimum of four 16-ounce bottles of water. - Follow up with the cervical MRI for multiple sclerosis as recommended. - Reduce metformin to 500 mg twice daily and report any ongoing issues with bowel movements. - Continue using your CPAP machine regularly. - Contact me with any significant worsening of symptoms or concerns before the next scheduled visit. - Avoid close contact with individuals exhibiting respiratory symptoms to prevent infections. Orders: Orders Complete Blood Count Auto Diff 4 Months .65 - Type 2 diabetes mellitus with hyperglycemia Thyroid Stimulating Hormone 4 Months E11. - Type 2 diabetes mellitus with hyperglycemia Creatinine Urine 4 Months E11. - Type 2 diabetes mellitus with hyperglycemia Prostate Specific Antigen Scr 4 Months E11. - Type 2 diabetes mellitus with hyperglycemia Hemoglobin A1c 4 Months E11. - Type 2 diabetes mellitus with hyperglycemia Thyroid Stimulating Hormone Today E11.65 - Type 2 diabetes mellitus with hyperglycemia AMB Hemoglobin A1c Today Z13.9 - Encounter for screening, unspecified Comprehensive Met. Panel 4 Months . - Type 2 diabetes mellitus with hyperglycemia Free T4 (Free Thyroxine) 4 Months E11. - Type 2 diabetes mellitus with hyperglycemia Lipid Panel 4 Months E11.65 - Type 2 diabetes mellitus with hyperglycemia, E78.00 - Pure hypercholesterolemia, unspecified Vitamin B12 and Folate 4 Months E11. - Type 2 diabetes mellitus with hyperglycemia Microalbumin, Random (w Creat) 4 Months E11. - Type 2 diabetes mellitus with hyperglycemia Comprehensive Met. Panel Today E11.65 - Type 2 diabetes mellitus with hyperglycemia Complete Blood Count Auto Diff Today E11.65 - Type 2 diabetes mellitus with hyperglycemia Free T4 (Free Thyroxine) Today E11. - Type 2 diabetes mellitus with hyperglycemia Leukocytes Stool Qualitative Today E11.65 - Type 2 diabetes mellitus with hyperglycemia Medications: Changed From metformin 1,000 mg PO BID 180 tabs 1RF E11.65 - Type 2 diabetes mellitus with hyperglycemia To metformin 500 mg PO BID 60 tabs 4RF E11.65 - Type 2 diabetes mellitus with hyperglycemia
== END 2024-10-04 11:26 | disposition home or self-care (01) ==
PROVIDERS: PCP Internal Medicine; Visit Provider Internal Medicine
DX: Z00.00 Encounter for general adult medical examination without abnormal findings (principal); G35 Multiple sclerosis; E11.65 Type 2 diabetes mellitus with hyperglycemia; I10 Essential (primary) hypertension; E78.00 Pure hypercholesterolemia, unspecified; F34.1 Dysthymic disorder; G47.33 Obstructive sleep apnea (adult) (pediatric); E86.0 Dehydration; R19.7 Diarrhea, unspecified; Z13.9 Encounter for screening, unspecified

== ENCOUNTER → 2024-10-04 10:05 | Outpatient (BNVA) | payer OTHER, SELFPAY | PROVIDERS: PCP Internal Medicine; Visit Provider Internal Medicine | DX: Z00.00 Encounter for general adult medical examination without abnormal findings (principal); G35 Multiple sclerosis; E11.65 Type 2 diabetes mellitus with hyperglycemia; I10 Essential (primary) hypertension; E78.00 Pure hypercholesterolemia, unspecified; F34.1 Dysthymic disorder; G47.33 Obstructive sleep apnea (adult) (pediatric); E86.0 Dehydration; R19.7 Diarrhea, unspecified; Z79.84 Long term (current) use of oral hypoglycemic drugs | CPT/HCPCS: 83036; 96127 ==

== ENCOUNTER 2024-10-23 08:36 | Outpatient (REF) | payer MEDICARE, SELFPAY ==
--- OUTSIDE RECORDS SUMMARY | 2024-10-23 08:55 | XMS_ITS | Encounter Summary ---
Author Organization [place] [address] Care Team Providers Care Community Arts Officer Name Role Phone Erlinda Sheets MD Primary Care Provider [phone] Encounter Details Date Type Department Care Team (Late st Contact Info) Description 06/25/2024 8:20 AM EDT Hospital Encounter TH HISTORIC ENCOUNTERS [facility] CONVERSION ONLY Fina Tsang PA [address] [place] [address] [place] [address] Social History Tobacco Use Types Packs/Day Years [...] JUDIE Kay - 06/25/2024 8:30 AM EDT [facility] Cc: [place] [...] [facility] Denies changes in gait or balance, bowel [...] 6 months along with lab monitoring per [facility] protocol. - Brain and cervical [...] 30 minutes. The majority of the actual [id number] visit was spent counseling the patient with respect to the current neurological picture. Fina Tsang PA-C documented in this encounter Plan of Treatment Upcoming Encounters Date Type Department Care Team (Late st Contact Info) Description 01/15/2025 8:30 AM EDT Office Visit [facility] [place] - [address] [place] [address] Fina Tsang PA [address] [facility] [place] [address] 03/19/2025 8:00 AM EDT Appointment [facility] [place] [facility] - [place] [address] [facility] [address] [place] [address] documented as of this encounter Visit Diagnoses Not on filedocumented in this encounter Care Teams Community Arts Officer Relationship Specialty Start Date End Date Erlinda Sheets MD [address] [place] [address] Dr [address] [facility] [place] [address] PCP - General 07/05/23 documented as of this encounter
--- OUTSIDE RECORDS SUMMARY | 2024-10-23 08:55 | XMS_ITS | Clinical Summary ---
Author Organization 175 [facility] Address [address] [place] [address] Phone Care Team Providers Care Wire Dropper Name Role Phone Erlinda Sheets MD Primary Care Provider [phone] Allergies Active Allergy Reactions Criticality Noted Date Comments Lisinopril Unknown 01/09/2020 Teriflunomide 07/27/2022 Medications atorvastatin (LIPITOR) 40 mg tablet Take 1 tablet (40 mg total) by mouth. 01/03/2020 Active cholecalciferol (VITAMIN D-3) 25 mcg (1,000 unit) tablet Take 1 tablet (1,000 Units total) by mouth. Active irbesartan-hydro CHLOROthiazide (AVALIDE) 150-12.5 mg per tablet Take 1 tablet by mouth 1 (one) time each day. 10/31/2019 Active metFORMIN (GLUCOPHAGE) 500 mg tablet Take 1 tablet (500 mg total) by mouth. Active ocrelizumab (OCREVUS) 30 mg/mL solution injection Infuse 20 mL (600 mg total) into a venous catheter. Active buPROPion XL (WELLBUTRIN XL) 150 mg 24 hr tablet Sig - Route: Take 1 tablet (150 mg total) by mouth daily. - Oral Do not crush, chew, or split. Active melatonin 5 mg tablet Take 1 tablet (5 mg total) by mouth at bedtime. Active citalopram (CeleXA) 40 mg tablet Take 1 tablet (40 mg total) by mouth 1 (one) time each day. 30 each 5 08/30/2024 5 Active mirtazapine (REMERON) 7.5 mg tablet Take 1 tablet (7.5 mg total) by mouth at bedtime. 30 each 5 09/17/2024 5 Active Active Problems Problem Noted Date Diagnosed Date Multiple sclerosis 02/17/2021 Depression 12/27/2019 Diabetes 12/27/2019 Fatigue 12/27/2019 HLD (hyperlipidemia) 12/27/2019 Encounters Date Type Department Care Team Description 10/04/2024 12:46 PM EST - 10/04/2024 11:59 PM EST Hospital Encounter [facility] MRI [address] [place] [address] Multiple sclerosis (CMS/HCC) Discharge Disposition: Home or Self Care 10/04/2024 12:43 PM EST - 10/04/2024 11:59 PM EST Hospital Encounter [facility] [address] [place] [address] Multiple sclerosis (CMS/HCC) Discharge Disposition: Home or Self Care 09/17/2024 8:00 AM EST Office Visit [facility] [place] [facility] [address] [phone] Fina Tsang PA Multiple sclerosis (CMS/HCC) (Primary Dx) 09/17/2024 7:46 AM EST - 09/17/2024 11:59 PM EST Hospital Encounter [facility] [address] [phone] Multiple sclerosis (CMS/HCC) (Primary Dx) Discharge Disposition: Home or Self Care 08/14/2024 Telephone [facility] Out[facility] [address] [phone] Fina Tsang PA OCREVUS AUTH RECVD from Last 3 Months Immunizations Name Administration Dates Next Due Moderna SARS-CoV-2 COVID-19, mRNA, LNP-S, preservative free 01/25/2022,05/09/2021,12/20/2020,2020 Surgical History Surgery Date Site/Laterality Comments NO PAST SURGERIES PROCEDURE:NO PAST SURGERIES Medical History Medical History Date Comments Depression DX:Depression Encephalopathy DX:Encephalopath y Hypertension DX:Hypertension Multiple sclerosis (CMS/HCC) DX: Multiple sclerosis (HCC) Cervical myelopathy (CMS/HCC) DX :Cervical myelopathy (HCC) Pseudobulbar affect DX:Pseudobul bar affect Diabetes mellitus (CMS/HCC) DX:D iabetes mellitus (HCC) Family History Medical History Relation Name Comments Crohn's disease Daughter Diabetes type I Sister Multiple sclerosis Sister Thyroid disease Sister Relation Name Status Comments Daughter Sister Social History Tobacco Use Types Packs/Day Years Used Date Smoking Tobacco: Never Smokeless Tobacco: Never Tobacco Cessation:Counseling Given: Not Answered Alcohol Use Standard Drinks/Week Comments Yes 0 (1 standard drink = 0.6 oz pur e alcohol) Sex and Gender Information Value Date Recorded Sex Assigned at Not on file Legal Sex Male 1:04 AM EST Gender Identity Not on file Sexual Orientation Not on file Obstetrics History Last Filed Vital Signs Vital Sign Reading Time Taken Comments Blood Pressure 130/78 09/17/2024 11:10 AM EST Pulse 84 09/17/2024 11:10 AM EST Temperature 36 ??C (96.8 ??F) 09/17/2024 11: 10 AM EST Respiratory Rate 16 09/17/2024 11:1 0 AM EST Oxygen Saturation 97% 09/17/2024 11: 10 AM EST Inhaled Oxygen Concentration - - Weight 89.3 kg (196 lb 12.8 oz) 06/25/2024 8:32 AM EDT Height 172.7 cm (5' 8 ) 06/25/2024 8:32 AM EDT Body Mass Index 29.92 06/25/2024 8:32 AM EDT Plan of Treatment Upcoming Encounters Date Type Department Care Team (Late st Contact Info) Description 01/15/2025 8:30 AM EDT Office Visit [facility] [place] - [address] [place] [phone] Fina Tsang, JUDIE [address] [place] [address] [place] [address] 03/19/2025 8:00 AM EDT Appointment [facility] [place] [facility] [address] [phone] Health Maintenance Due Date Last Done Comments Diabetes: Annual Foot Exam 1975 Diabetes: Annual Retina Eye Exam 1975 Hepatitis B Vaccines (1 of 3 - 19+ 3-dose series) 1984 Cholesterol Screening (Lipid Panel) 08/20/2022 Depression Screening 08/20/2022 HIV Screening 08/20/2022 Hepatitis C Screening 08/20/2022 Medicare Annual Wellness Visit 08/20/2022 Social Influencers of Health Screening 08/20/2022 Diabetes: Annual Urine Albumin-Creatinine Ratio (uACR) 09/10/2022 Diabetes: Blood Sugar Control Test (HGBA1C) 09/10/2022 DTaP,Tdap,and Td Vaccines (2 - Td or Tdap) 10/28/2023 09/30/2023 Diabetes: Annual GFR (Glomerular Filtration Rate) 09/17/2025 09/17/2024 Colorectal Cancer Screening: FIT-DNA (Cologuard) 12/29/2026 12/30/2023, 12/30/2023, 12/30/2023, Additional history exists Pneumococcal Vaccine: 50+ Years (3 of 3 - PCV20 or PCV21) 01/29/2028 01/28/2023, 12/19/2018, 12/13/2017 Pneumococcal Vaccine: Pediatrics (0 to 5 Years) and At-Risk Patients (6 to 64 Years) (3 of 3 - PCV20 or PCV21) 01/29/2028 01/28/2023, 12/19/2018, 12/13/2017 RSV Immunization Patients 60+ Years Old (1 - 1-dose 75+ series) 2040 Zoster Vaccines Completed 12/10/2023, 10/08/2023 COVID-19 Vaccine Completed 06/18/2024, , 09/29/2022, Additional history exists Influenza Vaccine Completed 06/18/2024, , 07/29/2022, Additional history exists HIB Vaccines Aged Out No longer eligi ble based on patient's age to complete this topic HPV Vaccines Aged Out No longer eligi ble based on patient's age to complete this topic Hepatitis A Vaccines Aged Out No long er eligible based on patient's age to complete this topic IPV Vaccines Aged Out No longer eligi ble based on patient's age to complete this topic MMR Vaccines Aged Out No longer eligi ble based on patient's age to complete this topic Meningococcal ACWY Vaccine Aged Out N o longer eligible based on patient's age to complete this topic Meningococcal B Vacine Aged Out No lo nger eligible based on patient's age to complete this topic RSV Immunization Patients Under 20 months Aged Out No longer eligible based on patient's age to complete this topic Varicella Vaccines Aged Out No longer eligible based on patient's age to complete this topic Procedures Procedure Name Priority Date/Time Associated Diagnosis Comments MR CERVICAL SPINE WO AND W CONTRAST Routine 10/04/2024 2:16 PM EST Multiple sclerosis (CMS/HCC) MR BRAIN WO AND W CONTRAST Routine 10/04/2024 2:15 PM EST Multiple sclerosis (CMS/HCC) CBC WITH AUTO DIFFERENTIAL Routine 09/17/2024 8:04 AM EST Multiple sclerosis (CMS/HCC) CBC AND DIFFERENTIAL Routine 09/17/2024 8:04 AM EST Multiple sclerosis (CMS/HCC) HEPATIC FUNCTION PANEL Routine 09/17/2024 8:04 AM EST CREATININE, SERUM Routine 09/17/2024 8:0 4 AM EST BUN Routine 09/17/2024 8:04 AM EST HM FIT-DNA Routine 12/30/2023 from Last 3 Months or Most Recently Relevant to Health Maintenance Results * MR Cervical Spine wo and w Contrast (10/04/2024 2:16 PM EST) Anatomical Region Laterality Modality C-spine, Spine Magnetic Resonan ce 10/04/2024 3:43 PM EST Impressions 10/04/2024 4:02 PM EST Solitary T2 hyperintense lesion in the right lateral cord centered at C2-3, suggestive of a demyelinating plaque. ??No new lesion or evidence of active demyelination. Degenerative changes of the cervical spine as detailed above. -------- FINAL REPORT -------- Dictated By: Jasson Arora Dictated Date: 10/04/2024 15:43 ET Assigned Physician: Jasson Arora Reviewed and Electronically Signed By: Jasson Arora Signed Date: 10/04/2024 16:02 ET Workstation ID: [id number] Transcribed By: Self Edit Transcribed Date: 10/04/2024 15:43 ET Narrative 10/04/2024 4:02 PM EST PROCEDURE: MRI of the cervical spine with intravenous contrast. HISTORY: Multiple sclerosis, monitor. COMPARISON: Outside images dated 09/09/2023. TECHNIQUE: Sagittal and axial multisequence MRI of the cervical spine with and without intravenous contrast. IV contrast dose: 20 mL Dotarem administered from a 20 mL vial with 0 mL discarded. FINDINGS: Please see the accompanying dedicated MRI brain report for findings affecting the brain and skull base. The paraspinous soft tissues are normal. Alignment is normal. ??Modic endplate changes at C4-5, C5-6, and C6-7. ??No concerning marrow infiltrative lesion. No abnormal cord enhancement. ??There is a stable small T2 hyperintense lesion in the right lateral cord centered at C2-3. ??No other visible cord lesion. Cervical disc levels: C2-3: Minimal degenerative irregularity of the endplates and facet joints without spinal or foraminal stenosis. C3-4: Mild disc space height loss and endplate irregularity. ??Small bilateral uncovertebral spurs. ??Minimal degenerative irregularity of the facet joints. ??Minimal symmetric disc bulge. ??Mild bilateral foraminal stenosis. ??No spinal stenosis. C4-5: Mild disc space height loss. ??Minimal endplate irregularity. ??Small bilateral uncovertebral spurs and a minimal symmetric disc bulge. ??No spinal stenosis. ??Mild bilateral foraminal stenosis. C5-6: Moderate disc space height loss and mild endplate irregularity. ??Small bilateral uncovertebral spurs and a small symmetric disc bulge. ??No significant spinal stenosis. ??Severe left and moderate right foraminal stenosis. C6-7: Moderate disc space height loss and endplate irregularity. ??Small bilateral uncovertebral spurs. ??Small symmetric disc osteophyte complex. ??Minimal degenerative irregularity of the facet joints. ??Minimal spinal stenosis. ??Moderate left greater than right foraminal stenosis. C7-T1: Minimal endplate and facet joint irregularity. ??No spinal or foraminal stenosis. Procedure Note Jasson Arora MD - 10/04/2024 PROCEDURE: MRI of the cervical spine with intravenous contrast. HISTORY: Multiple sclerosis, monitor. COMPARISON: Outside images dated 09/09/2023. TECHNIQUE: Sagittal and axial multisequence MRI of the cervical spine withand without intravenous contrast. IV contrast dose: 20 mL Dotarem administered from a 20 mL vial with 0 mLdiscarded. FINDINGS: Please see the accompanying dedicated MRI brain report for findingsaffecting the brain and skull base. The paraspinous soft tissues are normal. Alignment is normal. Modic endplate changes at C4-5, C5-6, and C6-7. Noconcerning marrow infiltrative lesion. No abnormal cord enhancement. There is a stable small T2 hyperintenselesion in the right lateral cord centered at C2-3. No other visible cordlesion. Cervical disc levels: C2-3: Minimal degenerative irregularity of the endplates and facet jointswithout spinal or foraminal stenosis. C3-4: Mild disc space height loss and endplate irregularity. Smallbilateral uncovertebral spurs. Minimal degenerative irregularity of thefacet joints. Minimal symmetric disc bulge. Mild bilateral foraminalstenosis. No spinal stenosis. C4-5: Mild disc space height loss. Minimal endplate irregularity. Smallbilateral uncovertebral spurs and a minimal symmetric disc bulge. Nospinal stenosis. Mild bilateral foraminal stenosis. C5-6: Moderate disc space height loss and mild endplate irregularity.Small bilateral uncovertebral spurs and a small symmetric disc bulge. Nosignificant spinal stenosis. Severe left and moderate right foraminalstenosis. C6-7: Moderate disc space height loss and endplate irregularity. Smallbilateral uncovertebral spurs. Small symmetric disc osteophyte complex.Minimal degenerative irregularity of the facet joints. Minimal spinalstenosis. Moderate left greater than right foraminal stenosis. C7-T1: Minimal endplate and facet joint irregularity. No spinal orforaminal stenosis. IMPRESSION: Solitary T2 hyperintense lesion in the right lateral cord centered atC2-3, suggestive of a demyelinating plaque. No new lesion or evidence ofactive demyelination. Degenerative changes of the cervical spine as detailed above. -------- FINAL REPORT -------- Dictated By: Jasson Arora Dictated Date: 10/04/2024 15:43 ET Assigned Physician: Jasson Arora Reviewed and Electronically Signed By: Jasson Arora Signed Date: 10/04/2024 16:02 ET Workstation ID: [id number] Transcribed By: Self Edit Transcribed Date: 10/04/2024 15:43 ET Fina DIMAS IM MRI PROCEDURES Final Res ult * MR Brain wo and w Contrast (10/04/2024 2:15 PM EST) Anatomical Region Laterality Modality Head and Neck Magnetic Resonan ce 10/04/2024 3:27 PM EST Impressions 10/04/2024 3:43 PM EST The comparison outside study was performed with less sensitive technique, which limits comparison. ??Given this limitation, no interval change in multifocal demyelinating plaques as detailed above. ??No findings to suggest active demyelination. -------- FINAL REPORT -------- Dictated By: Jasson Arora Dictated Date: 10/04/2024 15:27 ET Assigned Physician: Jasson rAora Reviewed and Electronically Signed By: Jasson Arora Signed Date: 10/04/2024 15:43 ET Workstation ID: [id number] Transcribed By: Self Edit Transcribed Date: 10/04/2024 15:27 ET Narrative 10/04/2024 3:43 PM EST PROCEDURE: Contrast-enhanced MRI of the brain. HISTORY: Multiple sclerosis, monitor. TECHNIQUE: Multiplanar multisequence MRI of the brain with and without intravenous contrast. IV CONTRAST DOSE: 20 mL intravenous Dotarem from a 20 mL vial with 0 mL discarded. COMPARISON: 09/09/2023. FINDINGS: BRAIN: The comparison outside examination was performed with less sensitive technique. ??Given this limitation, there is no appreciable interval change in extensive periventricular and scattered juxtacortical supratentorial white matter lesions and small lesions in the brainstem, left brachium pontis, and cerebellar hemispheres. ??Some of the supratentorial lesions are hypointense on the T1- weighted spin-echo sequence; the T1 lesion burden is unchanged. ??There is stable irregular thinning of the corpus callosum. ??No diffusion abnormality. ??No mass or extra- axial fluid collection. ??Incidental note of a small choroidal fissure cyst on the right. ??No hydrocephalus. ??The major intracranial flow voids are preserved. Age commensurate ventricles and sulci. ??No abnormal enhancement. ORBITS: There is a signal abnormality in the posterior left optic nerve on the coronal FLAIR sequence. SINUSES/MASTOIDS: Mild mucosal thickening in the ethmoid air cells. CALVARIUM: Moderate hyperostosis frontalis interna. OTHER: The visualized skull base soft tissues are normal. ??Mild degenerative changes of the visualized cervical spine. Procedure Note Jasson Arora MD - 10/04/2024 PROCEDURE: Contrast-enhanced MRI of the brain. HISTORY: Multiple sclerosis, monitor. TECHNIQUE: Multiplanar multisequence MRI of the brain with and withoutintravenous contrast. IV CONTRAST DOSE: 20 mL intravenous Dotarem from a 20 mL vial with 0 mLdiscarded. COMPARISON: 09/09/2023. FINDINGS: BRAIN: The comparison outside examination was performed with lesssensitive technique. Given this limitation, there is no appreciableinterval change in extensive periventricular and scattered juxtacorticalsupratentorial white matter lesions and small lesions in the brainstem,left brachium pontis, and cerebellar hemispheres. Some of thesupratentorial lesions are hypointense on the T1-weighted spin- echosequence; the T1 lesion burden is unchanged. There is stable irregularthinning of the corpus callosum. No diffusion abnormality. No mass orextra-axial fluid collection. Incidental note of a small choroidalfissure cyst on the right. No hydrocephalus. The major intracranial flowvoids are preserved. Age commensurate ventricles and sulci. No abnormalenhancement. ORBITS: There is a signal abnormality in the posterior left optic nerve onthe coronal FLAIR sequence. SINUSES/MASTOIDS: Mild mucosal thickening in the ethmoid air cells. CALVARIUM: Moderate hyperostosis frontalis interna. OTHER: The visualized skull base soft tissues are normal. Milddegenerative changes of the visualized cervical spine. IMPRESSION: The comparison outside study was performed with less sensitive technique,which limits comparison. Given this limitation, no interval change inmultifocal demyelinating plaques as detailed above. No findings tosuggest active demyelination. -------- FINAL REPORT -------- Dictated By: Jasson Arora Dictated Date: 10/04/2024 15:27 ET Assigned Physician: Jasson Arora Reviewed and Electronically Signed By: Jasson Arora Signed Date: 10/04/2024 15:43 ET Workstation ID: [id number] Transcribed By: Self Edit Transcribed Date: 10/04/2024 15:27 ET Fina DIMAS IMG MRI PROCEDURES Final Res ult * CBC auto differential (09/17/2024 8:04 AM EST) WBC 8.0 4.8 - 10.8 K/mcL LAB HEMETOLOGY METHOD 09/17/2024 9:59 AM [facility] RBC 5.40 4.50 - 5.50 M/mcL LAB HEMETOLOGY METHOD 09/17/2024 9:59 AM [facility] Hemoglobin 15.3 13.5 - 17.5 g/dL LAB HEMETOLOGY METHOD 09/17/2024 9:59 AM [facility] Hematocrit 46.9 42.0 - 54.0 % LAB HEMETOLOGY METHOD 09/17/2024 9:59 AM [facility] MCV 87.5 79.0 - 98.0 FL LAB HEMETOLOGY METHOD 09/17/2024 9:59 AM [facility] MCH 28.5 27.0 - 32.0 pcg LAB HEMETOLOGY METHOD 09/17/2024 9:59 AM [facility] MCHC 32.6 32.0 - 37.0 g/dL LAB HEMETOLOGY METHOD 09/17/2024 9:59 AM [facility] RDW 13.1 11.0 - 15.0 % LAB HEMETOLOGY METHOD 09/17/2024 9:59 AM [facility] Platelets 376 130 - 400 K/mcL LAB HEMETOLOGY METHOD 09/17/2024 9:59 AM [facility] MPV 9.9 7.0 - 11.0 FL LAB HEMETOLOGY METHOD 09/17/2024 9:59 AM [facility] NRBC 0.0 <1.0 % LAB HEMETOLOGY METHOD 09/17/2024 9:59 AM [facility] NRBC Absolute 0.00 <0.10 K/mcL LAB HEMETOLOGY METHOD 09/17/2024 9:59 AM [facility] Neutrophils Relative 69.7 % LAB HEMETOLOGY METHOD 09/17/2024 9:59 AM [facility] Lymphocytes Relative 14.9 % LAB HEMETOLOGY METHOD 09/17/2024 9:59 AM [facility] Monocytes Relative 9.8 % LAB HEMETOLOGY METHOD 09/17/2024 9:59 AM [facility] Eosinophils Relative 4.4 % LAB HEMETOLOGY METHOD 09/17/2024 9:59 AM [facility] Basophils Relative 0.9 % LAB HEMETOLOGY METHOD 09/17/2024 9:59 AM [facility] Immature Granulocytes Relative 0.3 % LAB HEMETOLOGY METHOD 09/17/2024 9:59 AM [facility] Neutrophils Absolute 5.56 1.50 - 7.00 K/mcL LAB HEMETOLOGY METHOD 09/17/2024 9:59 AM [facility] Lymphocytes Absolute 1.19 1.00 - 5.00 K/mcL LAB HEMETOLOGY METHOD 09/17/2024 9:59 AM EST [facility] Monocytes Absolute 0.78 0.20 - 1.00 K/[facility] LAB HEMETOLOGY METHOD 09/17/2024 9:59 AM EST [facility] Eosinophils Absolute 0.35 0.00 - 0.50 K/mcL LAB HEMETOLOGY METHOD 09/17/2024 9:59 AM EST [facility] Basophils Absolute 0.07 0.00 - 0.20 K/[facility] LAB HEMETOLOGY METHOD 09/17/2024 9:59 AM EST [facility] Immature Granulocytes Absolute 0.02 0.00 - 0.03 K/[facility] LAB HEMETOLOGY METHOD 09/17/2024 9:59 AM EST [facility] Blood Venous blood specimen / Unknown Venipuncture / Unknown 09/17/2024 8:04 AM EST 09/17/2024 8:05 AM EST us Fina DIMAS LAB BLOOD ORDERABLES Final R esult [facility] [address] [place] [address], * Creatinine (09/17/2024 8:04 AM EST) Creatinine 1.19 0.70 - 1.30 mg/dL LAB CHEMISTRY METHOD 09/17/2024 10:19 AM EST [facility] eGFR 70 >=60 mL/min/1. 73m2 LAB CHEMISTRY METHOD 09/17/2024 10:19 AM EST [facility] Comment:Calculation based on the??Chronic Kidney Disease Epidemiology Collaboration (CKD-EPI) equation refit??without adjustment for race. Blood Venous blood specimen / Unknown Venipuncture / Unknown 09/17/2024 8:04 AM EST 09/17/2024 8:05 AM EST us Fina Renoi PA LAB BLOOD ORDERABLES Final R esult Performing Organization Address City/[facility]/ZIP Co de Phone Number [facility] [address] [place] [address], [place] [phone] * BUN (09/17/2024 8:04 AM EST) Pathologist [facility] [place] BUN 14 5 - 25 mg/dL LAB CHEMISTRY METHOD 09/17/2024 10:19 AM [facility] Blood Venous blood specimen / Unknown Venipuncture / Unknown 09/17/2024 8:04 AM EST 09/17/2024 8:05 AM EST [facility] LAB BLOOD ORDERABLES Final R esult Performing Organization Address [facility]/ZIP Co de Phone Number [facility] [address] [place] [address], [place] [phone] * Hepatic function panel (09/17/2024 8:04 AM EST) Pathologist [facility] [place] Total Protein 6.9 6.0 - 8.0 g/dL LAB CHEMISTRY METHOD 09/17/2024 10:19 AM [facility] Albumin 3.8 3.2 - 5.0 g/dL LAB CHEMISTRY METHOD 09/17/2024 10:19 AM [facility] Total Bilirubin 0.7 0.0 - 1.4 mg/dL LAB CHEMISTRY METHOD 09/17/2024 10:19 AM [facility] Bilirubin, Direct 0.1 0.0 - 0.3 mg/dL LAB CHEMISTRY METHOD 09/17/2024 10:19 AM [facility] Comment:Hemolysis present Bilirubin, Indirect 0.6 0.0 - 1.1 mg/dL LAB CHEMISTRY METHOD 09/17/2024 10:19 AM [facility] ALT (SGPT) 29 10 - 60 unit/L LAB CHEMISTRY METHOD 09/17/2024 10:19 AM EST [facility] AST (SGOT) 27 10 - 42 unit/L LAB CHEMISTRY METHOD 09/17/2024 10:19 AM EST [facility] Comment:Hemolysis present Alkaline Phosphatase 110 42 - 121 unit/L LAB CHEMISTRY METHOD 09/17/2024 10:19 AM EST [facility] Blood Venous blood specimen / Unknown Venipuncture / Unknown 09/17/2024 8:04 AM EST 09/17/2024 8:05 AM EST Fina DIMAS LAB BLOOD ORDERABLES Final R esult [facility] [address] [place] [address], [place] [phone] * FIT-DNA (Cologuard) (12/30/2023) Pathologist [facility] Colorectal Cancer Screening: FIT-DNA (Cologuard) Abstracted, no interpretation Historical Provider HEALTH MAINTENANCE Final Result from Last 3 Months or Most Recently Relevant to Health Maintenance Insurance [employer] MEDICARE [place]ICAID - [place] Advance Directives Documents on File Type Date Recorded Patient Chief Controller Station Expl anation Health Care Decision (hx) 01/26/2018 [place] DIRECTIVE Health Care Decision (hx) 01/26/2018 [place] DIRECTIVE Health Care Decision (hx) 01/26/2018 [place] DIRECTIVE Health Care Decision (hx) 01/26/2018 [place] DIRECTIVE Health Care Decision (hx) 01/26/2018 [place] DIRECTIVE Health Care Decision (hx) 01/26/2018 [place] DIRECTIVE Health Care Decision (hx) 01/26/2018 AD [place] DIRECTIVE Health Care Decision (hx) 01/26/2018 [place] DIRECTIVE Health Care Decision (hx) 01/26/2018 [place] DIRECTIVE Health Care Decision (hx) 01/26/2018 [place] DIRECTIVE Health Care Decision (hx) 01/26/2018 [place] DIRECTIVE Health Care Decision (hx) 01/26/2018 [place] DIRECTIVE Health Care Decision (hx) 01/26/2018 [place] DIRECTIVE Health Care Decision (hx) 01/26/2018 [place] DIRECTIVE Health Care Decision (hx) 01/26/2018 [place] DIRECTIVE Health Care Decision (hx) 01/26/2018 [place] DIRECTIVE Health Care Decision (hx) 01/26/2018 [place] DIRECTIVE Health Care Decision (hx) 01/26/2018 [place] DIRECTIVE Health Care Decision (hx) 01/26/2018 [place] DIRECTIVE Health Care Decision (hx) 01/26/2018 [place] DIRECTIVE Health Care Decision (hx) 01/26/2018 [place] DIRECTIVE Health Care Decision (hx) 01/26/2018 AD SANTA DIRECTIVE Care Teams Wire Dropper Relationship Specialty Start Date End Date Erlinda Sheets MD [address] [place] [address] [address] [facility] [place] [address] PCP - General 07/05/23
--- OUTSIDE RECORDS SUMMARY | 2024-10-23 08:55 | XMS_ITS | Encounter Summary ---
Author Organization [facility] Address [address] [place] [address] Care Team Providers Care Clinic Business Manager Name Role Phone Erlinda Sheets MD Primary Care Provider [phone] Reason for Referral * Imaging (Routine) - Pending Review Specialty Diagnoses / Procedures Referred By Saimaac t Referred To Contact Radiology Diagnoses Multiple sclerosis (CMS/HCC) Procedures MR Brain wo and w Contrast Fina Tsang PA [address] [place] [address] [place] [address] Phone: tel: fax: [address] [phone] Phone: tel: Referral ID Status Reason Start Date Expiration Date V isits Requested Visits Authorized [id number] Pending Review 09/18/2024 09/18/2025 1 1 Reason for Visit * Imaging (Routine) - Pending Review Specialty Diagnoses / Procedures Referred By Contac t Referred To Contact Radiology Diagnoses Multiple sclerosis (CMS/HCC) Procedures MR Brain wo and w Contrast Fina Tsang PA [address] [place] [address] [place] [address] Phone: tel: fax: [address] [phone] Phone: tel: Referral ID Status Reason Start Date Expiration Date V isits Requested Visits Authorized [id number] Pending Review 09/18/2024 09/18/2025 1 1 Encounter Details Date Type Department Care Team (Latest Contact Info) Description 10/04/2024 12:43 PM EST - 10/04/2024 11:59 PM EST Hospital Encounter [facility] MRI [address] [place] [address] Multiple sclerosis (CMS/HCC) Discharge Disposition: Home or Self Care Social History Tobacco Use Types Packs/Day Years [...] on file documented as of this encounter Medications at Time of Discharge atorvastatin (LIPITOR) 40 mg tablet Take 1 tablet (40 mg total) by mouth. 01/03/2020 buPROPion XL (WELLBUTRIN XL) 150 mg 24 hr tablet Sig - Route: Take 1 tablet (150 mg total) by mouth daily. - Oral Do not crush, chew, or split. cholecalciferol (VITAMIN D-3) 25 mcg (1,000 unit) tablet Take 1 tablet (1,000 Units total) by mouth. citalopram (CeleXA) 40 mg tablet Take 1 tablet (40 mg total) by mouth 1 (one) time each day. 30 each 5 08/30/2024 02/26/2025 irbesartan-hydroC HLOROthiazide (AVALIDE) 150-12.5 mg per tablet Take 1 tablet by mouth 1 (one) time each day. 10/31/2019 melatonin 5 mg tablet Take 1 tablet (5 mg total) by mouth at bedtime. metFORMIN (GLUCOPHAGE) 500 mg tablet Take 1 tablet (500 mg total) by mouth. mirtazapine (REMERON) 7.5 mg tablet Take 1 tablet (7.5 mg total) by mouth at bedtime. 30 each 5 09/17/2024 03/16/2025 ocrelizumab (OCREVUS) 30 mg/mL solution injection Infuse 20 mL (600 mg total) into a venous catheter. documented as of this encounter Discharge Disposition Disposition Code Departure Means Destination Home or Self Care documented in this encounter Plan of Treatment Upcoming Encounters Date Type Department Care Team (Late st Contact Info) Description 01/15/2025 8:30 AM EDT Office Visit [facility] [place] [address] [facility] [address] [place] [phone] Fina Tsang PA [address] [place] [address] [place] [address] 03/19/2025 8:00 AM EDT Appointment [facility] [place] [address] [facility] [address] [place] [phone] documented as of this encounter Procedures Procedure Name Priority Date/Time Associated Diagnosis Comments MR BRAIN WO AND W CONTRAST Routine 10/04/2024 2:15 PM EST Multiple sclerosis (CMS/[facility]) documented in this encounter Results * MR Brain wo and w Contrast [...] Signed Date: 10/04/2024 15:43 ET Workstation ID: [id number] Transcribed By: Self Edit Transcribed Date: 10/04/2024 [...] Signed Date: 10/04/2024 15:43 ET Workstation ID: [id number] Transcribed By: Self Edit Transcribed Date: 10/04/2024 15:27 ET Fina DIMAS IMG MRI PROCEDURES Final Res ult documented in this encounter Visit Diagnoses Diagnosis Multiple sclerosis (CMS/HCC) Multiple sclerosis documented in this encounter Administered Medications Inactive Administered Medications - up to 3 most recent administrations Medication Order MAR Action Action Date Dose Rate Site gadoterate meglumine (CLARISCAN, DOTAREM) injection 20 mL 20 mL, intravenous, Once in imaging, Starting on Deonna 10/04/24 at 1341, For 1 dose Given 10/04/2024 1:41 PM EST 20 mL documented in this encounter Orders Medications Ordered That Waqar ht Not Have Been Administered Count Last Ordered Date First Ordered Date gadoterate meglumine (CHRISTIAN CAN, DOTAREM) injection 20 mL 1 10/04/2024 documented in this encounter Care Teams Clinic Business Manager Relationship Specialty Start Date End Date Po, MD Erlinda [address] [place] [address] [address] [facility] [place] [address] PCP - General 07/05/23 documented as of this encounter
--- OUTSIDE RECORDS SUMMARY | 2024-10-23 08:55 | XMS_ITS | Encounter Summary ---
Author Organization [facility] Address [address] [place] [address] Care Team Providers Care Photographic Developer And Printer Name Role Phone Erlinda Sheets MD Primary Care Provider [phone] Reason for Referral * Imaging (Routine) - Pending Review Specialty Diagnoses / Procedures Referred By Contac t Referred To Contact Radiology Diagnoses Multiple sclerosis (CMS/HCC) Procedures MR Cervical Spine wo and w Contrast Fina Tsang PA [address] [place] [address] [place] [address] Phone: tel: fax: [address] [phone] Phone: tel: Referral ID Status Reason Start Date Expiration Date V isits Requested Visits Authorized [id number] Pending Review 09/18/2024 09/18/2025 1 1 Reason for Visit * Imaging (Routine) - Pending Review Specialty Diagnoses / Procedures Referred By Contac t Referred To Contact Radiology Diagnoses Multiple sclerosis (CMS/HCC) Procedures MR Cervical Spine wo and w Contrast Fina Tsang PA [address] [place] [address] [place] [address] Phone: tel: fax: [address] [phone] Phone: tel: Referral ID Status Reason Start Date Expiration Date V isits Requested Visits Authorized [id number] Pending Review 09/18/2024 09/18/2025 1 1 Encounter Details Date Type Department Care Team (Latest Contact Info) Description 10/04/2024 12:46 PM EST - 10/04/2024 11:59 PM EST Hospital Encounter [facility] MRI [address] [place] [address] Multiple sclerosis (CMS/HCC) Discharge Disposition: [...] Description 01/15/2025 8:30 AM EDT Office Visit [facility] [place] [facility] [place] [address] [facility] [address] [place] [phone] Fina Tsang, JUDIE [address] [place] [address] [place] [address] 03/19/2025 8:00 AM EDT Appointment [facility] [place] [address] [facility] [address] [place] [phone] documented as of this encounter Procedures Procedure Name Priority Date/Time Associated Diagnosis Comments MR CERVICAL SPINE WO AND W CONTRAST Routine 10/04/2024 2:16 PM EST Multiple sclerosis (CMS/[facility]) documented in this encounter Results * MR Cervical Spine wo and [...] Signed Date: 10/04/2024 16:02 ET Workstation ID: [id number] Transcribed By: Self Edit Transcribed Date: 10/04/2024 [...] Signed Date: 10/04/2024 16:02 ET Workstation ID: [id number] Transcribed By: Self Edit Transcribed Date: 10/04/2024 15:43 ET us Fina DIMAS IMG MRI PROCEDURES Final Res ult documented in this encounter Visit Diagnoses Diagnosis Multiple sclerosis (CMS/HCC) Multiple sclerosis documented in this encounter Care Teams Photographic Developer And Printer Relationship Specialty Start Date End Date Erlinda Sheets MD [address] [place] [address] [address] [facility] [place] [address] PCP - General 07/05/23 documented as of this encounter
--- OUTSIDE RECORDS SUMMARY | 2024-10-23 08:55 | XMS_ITS | Clinical Summary ---
Author Organization [facility] Address [address] [place] [address] Care Team Providers Care Planer Chain Offbearer Name Role Phone Erlinda Sheets MD Primary Care Provider [phone] Allergies Active Allergy Reactions Criticality Noted Date Comments Teriflunomide 07/27/2022 Lisinopril 01/09/2020 Medications Medication Sig Dispensed Refills Start Date End Date Status atorvastatin (LIPITOR) tablet 40 mg Take 1 tablet (40 mg total) by mouth daily. 0 01/03/2020 Active irbesartan-hydroCHLOR Othiazide (AVALIDE) 150-12.5 MG per tablet Take 1 tablet by mouth daily. 0 10/31/2019 Active vitamin D3 (VITAMIN D3) 25 MCG (1000 UT) tablet Take 1 tablet (1,000 Units total) by mouth daily. 0 Active citalopram (CeleXA) 40 MG tablet TAKE 1 TABLET BY MOUTH EVERY DAY 90 tablet 3 09/02/2023 Active buPROPion (WELLBUTRIN XL) 150 MG 24 hr tablet TAKE 1 TABLET BY MOUTH EVERY DAY 90 tablet 1 06/14/2024 Active metFORMIN (GLUCOPHAGE) tablet 1000 mg Take 1 tablet (1,000 mg total) by mouth 2 (two) times a day with meals. 0 04/25/2024 Active Active Problems Problem Noted Date Diagnosed Date Multiple sclerosis 02/17/2021 Fatigue 12/27/2019 Depression 12/27/2019 Diabetes 12/27/2019 HLD (hyperlipidemia) 12/27/2019 Immunizations Name Administration Dates Next Due Covid-19 (Moderna 12+) 100mcg/0.5mL dosage 12/20,11/22/2020 Covid-19 (Moderna Booster 18+) 0.25mL dosage ,05/09/2021 Family History Medical History Relation Name Comments [...] Information Value Date Recorded Sex Assigned at Male 12/02/2021 8:30 AM EDT Gender Identity Not on file Sexual Orientation Not on file Job Start Date Occupation Industry Not on file Not on file Not on file Last Filed Vital Signs Vital Sign Reading Time Taken Comments Blood Pressure 130/85 06/25/2024 8:32 AM EDT Pulse 87 06/25/2024 8:32 AM EDT Temperature 36.1 ??C (96.9 ??F) 06/25/2024 8:32 AM ED T Respiratory Rate 18 03/08/2024 11:2 8 AM EDT Oxygen Saturation 96% 03/08/2024 11: 28 AM EDT Inhaled Oxygen Concentration - - Weight 89.3 kg (196 lb 12.8 oz) 06/25/2024 8:32 AM EDT Height 172.7 cm (5' 8 ) 06/25/2024 8:32 AM EDT Body Mass Index 29.92 06/25/2024 8:32 AM EDT Plan of Treatment Health Maintenance Due Date Last Done Comments Hepatitis B Vaccines (1 of 3 - 3-dose series) 1965 Hepatitis C Screening 1965 Pneumococcal Vaccine (1 of 2 - PCV) 1971 Depression Screening 1977 BMI Counseling 1983 Preventative Health Evaluation 1983 DTap / Tdap / Td (1 - Tdap) 1984 Colon Cancer Screening (Colonoscopy) 2010 Shingrix-Zoster Vaccine (1 of 2) 2015 COVID-19 Vaccine ( - season) 2024 01/25/2022, 05/09/2021, 12/20/2020, Additional history exists Influenza Vaccine (#1) 2024 RSV Ped < 20 months Aged Out No longe r eligible based on patient's age to complete this topic Care Teams Planer Chain Offbearer Relationship Specialty Start Date End Date Po, Erlinda Contreras MD [address] [place] [address] [address] [facility] [place] [address] PCP - General Internal Medicine 07/05/23
[2024-10-23 09:02] LABS: MANUAL DIFF FLAG NO
[2024-10-23 09:39] LABS: Basophils Absolute Auto 0.1 X10*3/uL (0.0-0.2); Basophils Percent Auto 0.9 % (0-2); Eosinophils Absolute Auto 0.8 X10*3/uL (0.0-0.4); Eosinophils Percent Auto 7.1 % (0-4); Hematocrit 43.1 % (42.0-52.0); Hemoglobin 14.1 g/dl (14.0-18.0); Imm Gran Abs Auto 0.05 X10*3/uL (0.00-0.03); Imm Gran Pct Auto 0.5 % (0.0-0.4); Lymphocytes Absolute Auto 1.3 X10*3/uL (1.2-4.9); Lymphocytes Percent Auto 12.2 % (20-40); Mean Corpuscular HGB Conc 32.7 g/dl (31.0-36.0); Mean Corpuscular Hemoglobin 28.4 pg (27.0-33.0); Mean Corpuscular Volume 86.9 fL (80.0-98.0); Mean Platelet Volume 9.1 fL (9.4-12.4); Monocytes Absolute Auto 0.7 X10*3/uL (0.1-1.2); Monocytes Percent Auto 6.9 % (2-11); Neutrophils Absolute Auto 7.7 x10*3/uL (2.0-8.3); Neutrophils Percent Auto 72.4 % (45-73); Platelet Count 361 X10*3/uL (160-400); Red Blood Count 4.96 X10*6/uL (4.60-5.80); White Blood Count 10.6 X10*3/uL (4.8-10.8)
[2024-10-23 10:18] LABS: Alanine Aminotransferase 22 U/L (0-40); Albumin Level 4.1 g/dL (3.5-5.0); Alkaline Phosphatase 101 U/L (39-117); Anion Gap 9 (12-20); Aspartate Amino Transferase 18 U/L (5-37); Bilirubin Total 0.7 mg/dL (0.0-1.0); Blood Urea Nitrogen 23 mg/dL (9-16); Calcium 9.5 mg/dL (8.4-10.2); Carbon Dioxide 28 mmol/L (22-29); Chloride 106 mmol/L (96-108); Estimated Glomerular Filt Rate 35; Glucose Random 191 mg/dL (60-115); Potassium 4.3 mmol/L (3.3-5.1); Sodium 139 mmol/L (135-145); Total Protein 7.3 g/dL (6.5-8.0)
[2024-10-23 10:52] LABS: Free T4 (Free Thyroxine) 0.79 ng/dL (0.71-1.85); Thyroid Stimulating Hormone 2.18 uIU/mL (0.32-4.0)
[2024-10-23 13:15] LABS: Creatinine Urine 100.21 mg/dL; Microalbumin Urine < 5.0 mg/L
[2024-10-23 14:00] LABS: Leukocytes Stool Qualitative NEGATIVE (NEGATIVE)
== END 2024-10-23 08:37 | disposition home or self-care (01) ==
LOC: HO.LAB 08:36
PROVIDERS: PCP Internal Medicine; Visit Provider Internal Medicine
DX: E11.65 Type 2 diabetes mellitus with hyperglycemia (principal)
CPT/HCPCS: 36415; 80053; 82043; 82570; 84439; 84443; 85025; 89055

== ENCOUNTER 2024-11-01 07:40 | Outpatient (REF) | payer MEDICARE, SELFPAY ==
--- OUTSIDE RECORDS SUMMARY | 2024-11-01 07:42 | XMS_ITS | Encounter Summary ---
Author Organization [facility] Address [address] [place] [address] Care Team Providers Care Quality Control Operator Name Role Phone Erlinda Sheets MD Primary Care Provider [phone] Reason for Referral * Imaging (Routine) - Pending Review Specialty Diagnoses / Procedures Referred By Saimaac t Referred To Contact Radiology Diagnoses Multiple sclerosis (CMS/HCC) Procedures MR Brain wo and w Contrast Fina Tsang PA [address] [place] [address] [place] [address] Phone: tel: fax: [address] [phone] Phone: tel: Referral ID Status Reason Start Date Expiration Date V isits Requested Visits Authorized [id number] Pending Review 09/18/2024 09/18/2025 1 1 Reason for Visit * Imaging (Routine) - Pending Review Specialty Diagnoses / Procedures Referred By Contac t Referred To Contact Radiology Diagnoses Multiple sclerosis (CMS/HCC) Procedures MR Brain wo and w Contrast Fina Tsang PA [address] [place] [address] [place] [address] Phone: tel: fax: [address] [phone] Phone: tel: Referral ID Status Reason Start Date Expiration Date V isits Requested Visits Authorized [id number] Pending Review 09/18/2024 09/18/2025 1 1 Encounter Details Date Type Department Care Team (Latest Contact Info) Description 10/04/2024 12:43 PM EST - 10/04/2024 11:59 PM EST Hospital Encounter [facility] MRI [address] [place] [address] Multiple sclerosis (CMS/HCC) Discharge Disposition: [...] Visit [facility] [place] [facility] [place] [address] [facility] [address] [place] [phone] Fina Tsang PA [address] [place] [address] [place] [address] 03/19/2025 8:00 AM EDT Appointment [facility] [place] [address] [facility] [address] [place] [phone] documented as of this encounter Procedures Procedure Name Priority Date/Time Associated Diagnosis Comments MR BRAIN WO AND W CONTRAST Routine 10/04/2024 2:15 PM EST Multiple sclerosis (CMS/[facility]) documented in this encounter Results * [...] Signed Date: 10/04/2024 15:43 ET Workstation ID: [id number] Transcribed By: Self Edit Transcribed Date: 10/04/2024 [...] Signed Date: 10/04/2024 15:43 ET Workstation ID: [id number] Transcribed By: Self Edit Transcribed Date: 10/04/2024 [...] 10/04/2024 documented in this encounter Care Teams Quality Control Operator Relationship Specialty Start Date End Date Po, MD Erlinda [address] [place] [address] [address] [facility] [place] [address] PCP - General 07/05/23 documented as of this encounter
--- OUTSIDE RECORDS SUMMARY | 2024-11-01 07:42 | XMS_ITS | Encounter Summary ---
Author Organization [facility] Address [address] [place] [address] Care Team Providers Care Steel Unloader Name Role Phone Erlinda Sheets MD Primary Care Provider [phone] Reason for Referral * Imaging (Routine) - Pending Review Specialty Diagnoses / Procedures Referred By Contac t Referred To Contact Radiology Diagnoses Multiple sclerosis (CMS/HCC) Procedures MR Cervical Spine wo and w Contrast Fina Tsang PA [address] [place] [address] [place] [address] Phone: tel: fax: [address] [phone] Phone: tel: Referral ID Status Reason Start Date Expiration Date V isits Requested Visits Authorized [id number] Pending Review 09/18/2024 09/18/2025 1 1 Reason for Visit * Imaging (Routine) - Pending Review Specialty Diagnoses / Procedures Referred By Contac t Referred To Contact Radiology Diagnoses Multiple sclerosis (CMS/HCC) Procedures MR Cervical Spine wo and w Contrast Fina Tsang PA [address] [place] [address] [place] [address] Phone: tel: fax: [address] [phone] Phone: tel: Referral ID Status Reason Start Date Expiration Date V isits Requested Visits Authorized [id number] Pending Review 09/18/2024 09/18/2025 1 1 Encounter Details Date Type Department Care Team (Latest Contact Info) Description 10/04/2024 12:46 PM EST - 10/04/2024 11:59 PM EST Hospital Encounter [facility] MRI [address] [place] [address] Multiple sclerosis (CMS/HCC) Discharge Disposition: [...] Description 01/15/2025 8:30 AM EDT Office Visit [facility] [place] [facility] [place] [address] [facility] [address] [place] [phone] Fina Tsang, JUDIE [address] [place] [address] [place] [address] 03/19/2025 8:00 AM EDT Appointment [facility] [place] [address] [facility] [address] [place] [phone] documented as of this encounter Procedures Procedure Name Priority Date/Time Associated Diagnosis Comments MR CERVICAL SPINE WO AND W CONTRAST Routine 10/04/2024 2:16 PM EST Multiple sclerosis (CMS/[facility]) documented in this encounter Results * MR [...] Signed Date: 10/04/2024 16:02 ET Workstation ID: [id number] Transcribed By: Self Edit Transcribed Date: 10/04/2024 [...] Signed Date: 10/04/2024 16:02 ET Workstation ID: [id number] Transcribed By: Self Edit Transcribed Date: 10/04/2024 15:43 ET us Fina DIMAS IMG MRI PROCEDURES Final Res ult documented in this encounter Visit Diagnoses Diagnosis Multiple sclerosis (CMS/HCC) Multiple sclerosis documented in this encounter Care Teams Steel Unloader Relationship Specialty Start Date End Date Erlinda Sheets MD [address] [place] [address] [address] [facility] [place] [address] PCP - General 07/05/23 documented as of this encounter
--- OUTSIDE RECORDS SUMMARY | 2024-11-01 07:42 | XMS_ITS | Clinical Summary ---
Author Organization 175 [facility] Address [address] [place] [address] Phone Care Team Providers Care Transportation Program Director Name Role Phone Erlinda Sheets MD Primary Care Provider [phone] Allergies Active Allergy Reactions Criticality Noted Date [...] - 10/04/2024 11:59 PM EST Hospital Encounter [facility] MRI [address] [place] [address] Multiple sclerosis (CMS/HCC) Discharge Disposition: Home or Self Care 10/04/2024 12:43 PM EST - 10/04/2024 11:59 PM EST Hospital Encounter [facility] [address] [place] [address] Multiple sclerosis (CMS/HCC) Discharge Disposition: Home or Self Care 09/17/2024 8:00 AM EST Office Visit [facility] [address] [phone] Fina Tsang PA Multiple sclerosis (CMS/HCC) (Primary Dx) 09/17/2024 7:46 AM EST - 09/17/2024 11:59 PM EST Hospital Encounter [facility] [address] [phone] Multiple sclerosis (CMS/HCC) (Primary Dx) Discharge Disposition: Home or Self Care 08/14/2024 Telephone [facility] [address] [phone] Fina Tsang PA OCREVUS AUTH RECVD from [...] Description 01/15/2025 8:30 AM EDT Office Visit [facility] [place] - [address] [place] [phone] Fina Tsang, JUDIE [address] [place] [address] [place] [address] 03/19/2025 8:00 AM EDT Appointment [facility] - [address] [place] [address] Health Maintenance Due Date Last Done [...] Diabetes: Blood Sugar Control Test (HGBA1C) 09/10/2022 Diabetes: Annual GFR (Glomerular Filtration Rate) 09/17/2025 09/17/2024 Colorectal Cancer Screening: FIT-DNA (Cologuard) 12/29/2026 12/30/2023, 12/30/2023, 12/30/2023, Additional history exists Pneumococcal Vaccine: 50+ Years (3 of 3 - PCV20 or PCV21) 01/29/2028 01/28/2023, 12/19/2018, 12/13/2017 Pneumococcal Vaccine: Pediatrics (0 to 5 Years) and At-Risk Patients (6 to 64 Years) (3 of 3 - PCV20 or PCV21) 01/29/2028 01/28/2023, 12/19/2018, 12/13/2017 DTaP,Tdap,and Td Vaccines (2 - Td or Tdap) 09/30/2033 09/30/2023 RSV Immunization Patients 60+ Years Old (1 [...] Signed Date: 10/04/2024 16:02 ET Workstation ID: [id number] Transcribed By: Self Edit Transcribed Date: 10/04/2024 [...] Signed Date: 10/04/2024 16:02 ET Workstation ID: [id number] Transcribed By: Self Edit Transcribed Date: 10/04/2024 [...] Signed Date: 10/04/2024 15:43 ET Workstation ID: [id number] Transcribed By: Self Edit Transcribed Date: 10/04/2024 [...] Signed Date: 10/04/2024 15:43 ET Workstation ID: [id number] Transcribed By: Self Edit Transcribed Date: 10/04/2024 15:27 ET Fina DIMAS IMG MRI PROCEDURES Final Res ult * CBC auto differential (09/17/2024 8:04 AM EST) WBC 8.0 4.8 - 10.8 K/mcL LAB HEMETOLOGY METHOD 09/17/2024 9:59 AM [facility] RBC 5.40 4.50 - 5.50 M/mcL LAB HEMETOLOGY METHOD 09/17/2024 9:59 AM [facility] Hemoglobin 15.3 13.5 - 17.5 g/dL LAB HEMETOLOGY METHOD 09/17/2024 9:59 AM [facility] Hematocrit 46.9 42.0 - 54.0 % LAB HEMETOLOGY METHOD 09/17/2024 9:59 AM [facility] MCV 87.5 79.0 - 98.0 FL LAB HEMETOLOGY METHOD 09/17/2024 9:59 AM [facility] MCH 28.5 27.0 - 32.0 pcg LAB HEMETOLOGY METHOD 09/17/2024 9:59 AM [facility] MCHC 32.6 32.0 - 37.0 g/dL LAB HEMETOLOGY METHOD 09/17/2024 9:59 AM [facility] RDW 13.1 11.0 - 15.0 % LAB HEMETOLOGY METHOD 09/17/2024 9:59 AM [facility] Platelets 376 130 - 400 K/mcL LAB HEMETOLOGY METHOD 09/17/2024 9:59 AM [facility] MPV 9.9 7.0 - 11.0 FL LAB HEMETOLOGY METHOD 09/17/2024 9:59 AM [facility] NRBC 0.0 <1.0 % LAB HEMETOLOGY METHOD 09/17/2024 9:59 AM [facility] NRBC Absolute 0.00 <0.10 K/mcL LAB HEMETOLOGY METHOD 09/17/2024 9:59 AM [facility] Neutrophils Relative 69.7 % LAB HEMETOLOGY METHOD 09/17/2024 9:59 AM [facility] Lymphocytes Relative 14.9 % LAB HEMETOLOGY METHOD 09/17/2024 9:59 AM [facility] Monocytes Relative 9.8 % LAB HEMETOLOGY METHOD 09/17/2024 9:59 AM [facility] Eosinophils Relative 4.4 % LAB HEMETOLOGY METHOD 09/17/2024 9:59 AM [facility] Basophils Relative 0.9 % LAB HEMETOLOGY METHOD 09/17/2024 9:59 AM [facility] Immature Granulocytes Relative 0.3 % LAB HEMETOLOGY METHOD 09/17/2024 9:59 AM [facility] Neutrophils Absolute 5.56 1.50 - 7.00 K/mcL LAB HEMETOLOGY METHOD 09/17/2024 9:59 AM [facility] Lymphocytes Absolute 1.19 1.00 - 5.00 K/mcL LAB HEMETOLOGY METHOD 09/17/2024 9:59 AM EST [facility] Monocytes Absolute 0.78 0.20 - 1.00 K/[facility] LAB HEMETOLOGY METHOD 09/17/2024 9:59 AM EST [facility] Eosinophils Absolute 0.35 0.00 - 0.50 K/mcL LAB HEMETOLOGY METHOD 09/17/2024 9:59 AM EST [facility] Basophils Absolute 0.07 0.00 - 0.20 K/[facility] LAB HEMETOLOGY METHOD 09/17/2024 9:59 AM EST [facility] Immature Granulocytes Absolute 0.02 0.00 - 0.03 K/[facility] LAB HEMETOLOGY METHOD 09/17/2024 9:59 AM EST [facility] Blood Venous blood specimen / Unknown Venipuncture / Unknown 09/17/2024 8:04 AM EST 09/17/2024 8:05 AM EST us Fina DIMAS LAB BLOOD ORDERABLES Final R esult [facility] [address] [place] [address], * Creatinine (09/17/2024 8:04 AM EST) Creatinine 1.19 0.70 - 1.30 mg/dL LAB CHEMISTRY METHOD 09/17/2024 10:19 AM EST [facility] eGFR 70 >=60 mL/min/1. 73m2 LAB CHEMISTRY METHOD 09/17/2024 10:19 AM EST [facility] Comment:Calculation based on the??Chronic Kidney Disease Epidemiology Collaboration (CKD-EPI) equation refit??without adjustment for race. Blood Venous blood specimen / Unknown Venipuncture / Unknown 09/17/2024 8:04 AM EST 09/17/2024 8:05 AM EST us Fina Renoi PA LAB BLOOD ORDERABLES Final R esult Performing Organization Address City/[facility]/ZIP Co de Phone Number [facility] [address] [place] [address], [place] [phone] * BUN (09/17/2024 8:04 AM EST) Pathologist [facility] BUN 14 5 - 25 mg/dL LAB CHEMISTRY METHOD 09/17/2024 10:19 AM [facility] Blood Venous blood specimen / Unknown Venipuncture / Unknown 09/17/2024 8:04 AM EST 09/17/2024 8:05 AM EST [facility] LAB BLOOD ORDERABLES Final R esult Performing Organization Address [facility]/ZIP Co de Phone Number [facility] [address] [place] [address], [place] [phone] * Hepatic function panel (09/17/2024 8:04 AM EST) Pathologist [facility] Total Protein 6.9 6.0 - 8.0 g/dL LAB CHEMISTRY METHOD 09/17/2024 10:19 AM [facility] Albumin 3.8 3.2 - 5.0 g/dL LAB CHEMISTRY METHOD 09/17/2024 10:19 AM [facility] Total Bilirubin 0.7 0.0 - 1.4 mg/dL LAB CHEMISTRY METHOD 09/17/2024 10:19 AM [facility] Bilirubin, Direct 0.1 0.0 - 0.3 mg/dL LAB CHEMISTRY METHOD 09/17/2024 10:19 AM [facility] Comment:Hemolysis present Bilirubin, Indirect 0.6 0.0 - 1.1 mg/dL LAB CHEMISTRY METHOD 09/17/2024 10:19 AM [facility] ALT (SGPT) 29 10 - 60 unit/L LAB CHEMISTRY METHOD 09/17/2024 10:19 AM EST [facility] AST (SGOT) 27 10 - 42 unit/L LAB CHEMISTRY METHOD 09/17/2024 10:19 AM EST [facility] Comment:Hemolysis present Alkaline Phosphatase 110 42 - 121 unit/L LAB CHEMISTRY METHOD 09/17/2024 10:19 AM EST [facility] Blood Venous blood specimen / Unknown Venipuncture / Unknown 09/17/2024 8:04 AM EST 09/17/2024 8:05 AM EST Fina DIMAS LAB BLOOD ORDERABLES Final R esult [facility] [address] [place] [address], [place] [phone] * FIT-DNA (Cologuard) (12/30/2023) Pathologist [facility] Colorectal Cancer Screening: FIT-DNA (Cologuard) Abstracted, no interpretation Historical Provider HEALTH MAINTENANCE Final Result from Last 3 Months or Most Recently Relevant to Health Maintenance Insurance [employer] MEDICARE [place]ICAID - [place] Advance Directives Documents on File Type Date Recorded Patient Load Checker Expl anation Health Care Decision (hx) 01/26/2018 [...] (hx) 01/26/2018 [place] DIRECTIVE Care Teams Transportation Program Director Relationship Specialty Start Date End Date Erlinda Sheets MD [address] [place] [address] [address] [facility] [place] [address] PCP - General 07/05/23
--- OUTSIDE RECORDS SUMMARY | 2024-11-01 07:42 | XMS_ITS | Clinical Summary ---
Author Organization [facility] Address [address] [place] [address] Care Team Providers Care Slurry Tank Operator Name Role Phone Erlinda Sheets MD Primary Care Provider [phone] Allergies Active Allergy Reactions Criticality Noted Date [...] age to complete this topic Care Teams Slurry Tank Operator Relationship Specialty Start Date End Date Po, Erlinda Contreras MD [address] [place] [address] [address] [facility] [place] [address] PCP - General Internal Medicine 07/05/23
[2024-11-01 08:16] LABS: Alanine Aminotransferase 23 U/L (0-40); Albumin Level 4.1 g/dL (3.5-5.0); Alkaline Phosphatase 101 U/L (39-117); Anion Gap 15 (12-20); Aspartate Amino Transferase 17 U/L (5-37); Bilirubin Total 0.6 mg/dL (0.0-1.0); Blood Urea Nitrogen 27 mg/dL (9-16); Calcium 9.1 mg/dL (8.4-10.2); Carbon Dioxide 24 mmol/L (22-29); Chloride 104 mmol/L (96-108); Estimated Glomerular Filt Rate 39; Glucose Random 170 mg/dL (60-115); Potassium 4.3 mmol/L (3.3-5.1); Sodium 139 mmol/L (135-145); Total Protein 7.4 g/dL (6.5-8.0)
[2024-11-01 08:18] LABS: Creatinine Urine 80.64 mg/dL
== END 2024-11-01 07:41 | disposition home or self-care (01) ==
LOC: HO.LAB 07:40
PROVIDERS: PCP Internal Medicine; Visit Provider Internal Medicine
DX: N28.9 Disorder of kidney and ureter, unspecified (principal); E11.65 Type 2 diabetes mellitus with hyperglycemia
CPT/HCPCS: 36415; 80053; 82570

== ENCOUNTER 2025-01-08 08:25 | Outpatient (AMB) | payer OTHER, SELFPAY ==
[2025-01-08 08:30] VITALS: BP 114/78; PULSE 80; RESP 18; TEMP 36.2; O2SAT 97; BMI 30.2
--- NOTE | 2025-01-08 08:30 | MHC.PC.OV ---
Vital Signs 01/08/25 08:30 Height 5 ft 8 in Weight 198 lb 9.6 oz BMI 30.2 BP 114/78 Blood Pressure Location Lt brachial Position Sitting Respiration 18 Pulse 80 Pulse Source Pulse Oximeter Temp 97.1 F Temp Source Temporal Artery Scan Pulse Oximetry (%) 97 Oxygen Delivery Method Room Air Intake Visit Reasons: Diarrhea, DM, HTN - see comments Bench Lay Out Technician Required: No Accompanied by: Self / Same As Patient Allergies lisinopril [LISINOPRIL] Allergy (Mild, Verified 01/08/25 08:36) SCRATCHY THROAT teriflunomide Allergy (Mild, Verified 01/08/25 08:36) Rash Medication List - Last Reconciled 01/08/25 by Erlinda Sheets MD atorvastatin 40 mg PO DAILY bupropion HCl XL 150 mg PO QAM cholecalciferol (vitamin D3) 4,000 units PO DAILY citalopram 40 mg PO DAILY hydrocortisone 2.5% (Proctosol HC) 1 appl GA BID-QID PRN losartan 25 mg PO DAILY metformin 500 mg PO BID mirtazapine 7.5 mg PO BEDTIME ocrelizumab (Ocrevus) 600 mg IV [id number] Tobacco use date assessed: 01/08/25 Dental Screening Dental Screen Date: 01/08/25 Did you have a dental visit in the last 12 months?: No Did you have a dental problem in the last 6 months where you did not have access to dental care?: No Was dental information given to patient?: No PFSH Medical History Sleep difficulties Snoring Excessive daytime sleepiness Tinnitus Colon cancer screening Esophageal bleed, non-variceal Surgical History No pertinent past surgical history Social History Housing: House Alcohol intake: never Patient Tobacco Use Status: Never used Tobacco Tobacco use type: Cigarette e-Cigarette/Vaping Use: Never Used Second Hand Smoke Exposure: No service: No Current occupational status: retired and disabled Cognitive needs: No Hearing needs: No Vision needs: Yes (Glasses) Questionnaire Thrive Questionnaire Date Thrive assessed: 01/08/25 I am a: Patient What is your living situation today?: I have a steady place to live Within the past 12 months, did the food you bought not last and you didn't have the money to get more?: Never true Within the past 12 months, did you worry whether your food would run out before you got money to buy more?: Never true Do you have trouble paying for medicines?: No Do you have trouble getting transportation to medical appointments?: No Do you have trouble paying your heating and electricity bill?: I choose not to answer this question Do you have trouble taking care of your child, family member or friend?: No Do you have trouble with day-to-day activities such as bathing, preparing meals, shopping, managing finances, etc.?: No Are you currently unemployed and looking for a job?: No Are you interested in more education?: No Please select the resources that you would like help with: None Currently or been in a relationship where the following occur: No concerns reported THRIVE Score: 0 AUDIT C Alcohol Use Questionnaire (AUDIT-C) 1. How often do you have a drink containing alcohol?: Never 3. How often do you have six or more drinks on one occasion?: Never Total Score: 0 Score Reviewed/Action Taken: No NISHA-7 AMB Questionnaire NISHA-7 Date NISHA - 7 assessed: 10/04/24 Source: Developed by Drs. Esvin Roman, Denise Zarate, Nam Ku and colleagues, with an educational jose francisco from [employer]. Physical exam (Primary Care) Vital Signs: Last Vital Signs Temp 97.1 F 01/08/25 08:30 Pulse 80 01/08/25 08:30 Resp 18 01/08/25 08:30 BP 114/78 01/08/25 08:30 Pulse Ox 97 01/08/25 08:30 Oxygen Delivery Method Room Air 01/08/25 08:30 BMI result Body Mass Index 30.2 Tobacco/Smoking Status: Tobacco use Status Tobacco use date assessed 01/08/25 01/08/25 08:40 Patient Tobacco Use Status Never used Tobacco 01/08/25 08:30 Tobacco use type Cigarette 01/08/25 08:30 e-Cigarette/Vaping Use Never Used 01/08/25 08:30 Thrive Assessment: Date of Thrive Assessment Date Thrive assessed 01/08/25 01/08/25 08:40 Currently or been in a relationship where the following occur: No concerns reported Const General: alert; No acute distress Eyes Conjunctivae: conjunctivae normal Resp Auscultation: clear to auscultation bilaterally Cardio Rate: regular rate Rhythm: regular rhythm GI Inspection: Yes normal to inspection Extrem General: Yes normal to inspection and No edema Results AMB Hemoglobin A1c AMB Hemoglobin A1c 6.7 % Last Edit by Lizzy Alvarenga CMA on 01/08/25 08:42 Coding Level of Care Code Est Pt Level 4 (32748) Complex EM visit Add On G2211 Diagnoses Type 2 diabetes mellitus with hyperglycemia, without long-term current use of insulin E11.65 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 Hemoglobin A1c goal of less than 6.5. Patient on metformin 500 mg twice a day (2) Hypertension: Code(s): I10 - Essential (primary) hypertension Category: Medical Qualifiers: Hypertension type: primary hypertension Qualified Code(s): I10 - Essential (primary) hypertension Plan: Continue with blood pressure medication. Decrease salt intake and exercise on losartan 25 mg once a day. (3) Hypercholesterolemia: Code(s): E78.00 - Pure hypercholesterolemia, unspecified Category: Medical Plan: Avoid fried foods, chicken skin, eggs, butter margarine, pastries and meat. Be it pork or beef they have a lot of cholesterol LDL goal of less than 100 January 2024 was last blood work. (4) Relapsing remitting multiple sclerosis: Comment: Cervical spine MRI September 2024MRI cervical spine solitary T2 hyperintense lesion in the right lateral called centered at C2-3 suggestive of demyelinating plaque no new lesion of active demyelination. Code(s): G35 - Multiple sclerosis Category: Medical Plan: Patient is being followed up by Neurology has had MRI of the spine and brain. No active demyelination stable patient on Ocrevus (5) Dysthymia: Comment: [facility] Counseling Code(s): F34.1 - Dysthymic disorder Category: Medical Plan: Declined counseling and on mirtazapine citalopram Wellbutrin (6) Obstructive sleep apnea: Comment: cannot tolerate CPAP (09/2024 using now) Code(s): G47.33 - Obstructive sleep apnea (adult) (pediatric) Category: Medical Plan: Continue to use the CPAP more than 4 hours a night and benefits from this. (7) Renal insufficiency: Code(s): N28.9 - Disorder of kidney and ureter, unspecified Category: Medical Plan: Will do blood work and if blood work remains to have an elevated creatinine will get Nephrology. Get renal function test and (8) Hemorrhoids: Code(s): K64.9 - Unspecified hemorrhoids Category: Medical Plan: Discussed about avoiding constipation. Patient was advised to get hot Sitz bath and Proctosol prescription sent in Plan History of Present Illness The patient is a 59-year-old male presenting for follow-up of multiple chronic medical conditions including diabetes mellitus, hypertension, hypercholesterolemia, dysphoria, and multiple sclerosis. His diabetes, previously well-controlled, has shown an increase in A1c levels. He manages his diabetes with metformin and adheres to lifestyle modifications but denies the addition of new medications for glycemic control. The patient reports stability in his weight. His hypertension and hypercholesterolemia are managed pharmacologically, and recent lab results from January 2024 showed adequate LDL levels. The patient regularly uses CPAP for obstructive sleep apnea and generally complies well with nighttime use, although he encounters minor disturbances from upper respiratory infections. He receives neurologic care for multiple sclerosis and remains under Ocrevus treatment, showing no new lesions on recent MRI assessments. Hemorrhoidal symptoms due to constipation have been addressed with OTC preparations, and the patient was advised on additional home care measures. Health Maintenance - Hemoglobin A1c less than 6.5% - LDL cholesterol goal of less than 100 mg/dL - Creatinine levels monitored; previously at 1.95, now 1.78 - CPAP compliance for obstructive sleep apnea - Updated vaccinations: Shingles, Tetanus, Pneumonia - Regular ophthalmological evaluations - no retinopathy Social History - Utilizes CPAP for more than 4 hours most nights - Manages diet and weight maintenance - Engages in minimal physical activity due to MS - Regular follow-up visits with specialists Review of Systems - Neurologic: Denies new neurological symptoms - Cardiovascular: Reports stable blood pressure - Respiratory: Reports regular use and benefit of CPAP; occasional issues during illness - Gastrointestinal: Reports hemorrhoids and intermittent constipation - Endocrine: Reports elevated A1c; usually well-controlled diabetes - Musculoskeletal: Reports stability in multiple sclerosis status - General: Reports stability in mood; manages dysthymia with medication Physical Exam - 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 Regular surveillance of renal function and A1c levels will monitor potential risks. The patient will use Sitz baths and the prescribed cream for hemorrhoidal symptoms. Diet and exercise modification remain advised for overall health management. Patient was informed and verbally consented to the use of an ambient scribe for clinic note documentation during this visit. Discussion Notes I discussed with the patient the importance of continuing current therapies for chronic conditions, emphasizing the role of Ocrevus in managing multiple sclerosis and metformin in type 2 diabetes. We reviewed potential risks associated with elevated creatinine and the importance of fluid intake and avoiding nephrotoxic agents. For hemorrhoidal symptoms, we emphasized home care strategies to alleviate discomfort. Follow-up is advised in three months, with a recommendation for prompt blood work update to inform further renal and diabetes status management. Patient Instructions - Continue all prescribed medications as directed. - Use CPAP nightly for at least 4 hours. - Perform regular Sitz baths as instructed for hemorrhoid relief. - Monitor blood sugar levels and maintain dietary recommendations. - Increase fluid intake and avoid medications like NSAIDs. - Schedule and complete blood work within the next month. - Follow-up in three months unless advised earlier for elevated lab results. Orders: Orders AMB Hemoglobin A1c Today E11.65 - Type 2 diabetes mellitus with hyperglycemia Medications: New hydrocortisone 2.5% (Proctosol HC) 1 appl GA BID-QID PRN 30 grams 0RF itching K64.9 - Unspecified hemorrhoids
--- OUTSIDE RECORDS SUMMARY | 2025-01-08 08:44 | XMS_ITS | Encounter Summary ---
Author Organization [employer] [place] [address] Care Team Providers Care Riprap Man Name Role Phone Erlinda Sheets MD Primary Care Provider [phone] Encounter Details Date Type Department Care Team (Late st Contact Info) Description 06/25/2024 8:20 AM EDT Hospital Encounter TH HISTORIC ENCOUNTERS EASTERN CONVERSION ONLY Fina Tsang PA [address] [place] [address] Social History Tobacco Use Types Packs/Day Years [...] JUDIE Kay - 06/25/2024 8:30 AM EDT [facility] Cc: [place] HPI: Patient [...] event since he was last seen in [facility]. Denies changes in gait or balance, [...] 6 months along with lab monitoring per [facility] protocol. - Brain and cervical spine MRIs [...] 30 minutes. The majority of the actual [id number] visit was spent counseling the patient with respect to the current neurological picture. Fina Tsang PA-C documented in this encounter Plan of Treatment Upcoming Encounters Date Type Department Care Team (Late st Contact Info) Description 01/15/2025 8:30 AM EDT Office Visit [facility] - [address] [place] [address] Fina Tsang PA [address] [address] 03/19/2025 8:00 AM EDT Appointment [facility] [place] Out[facility] - [place] [address] [phone] documented as of this encounter Visit Diagnoses Not on filedocumented in this encounter Care Teams Riprap Man Relationship Specialty Start Date End Date Erlinda Sheets MD [address] [place] [address] [address] [facility] [place] [address] PCP - General 07/05/23 documented as of this encounter
--- OUTSIDE RECORDS SUMMARY | 2025-01-08 08:44 | XMS_ITS | Clinical Summary ---
Author Organization [facility] Address [address] [place] [address] Phone Care Team Providers Care Ballet Teacher Name Role Phone Erlinda Sheets MD Primary Care Provider Allergies Active Allergy Reactions Criticality Noted Date [...] Problem Noted Date Diagnosed Date Multiple sclerosis ([facility] V24, [facility] V28) Depression 12/27/2019 Diabetes ([facility] V24, [facility] V28) 12/27/2019 Fatigue 12/27/2019 HLD (hyperlipidemia) 12/27/2019 Immunizations Name Administration Dates Next Due Moderna SARS-CoV-2 COVID-19, mRNA, LNP-S, preservative free 01/25/2022,05/09/2021,12/20/2020,2020 Surgical History Surgery Date Site/Laterality Comments NO PAST SURGERIES PROCEDURE:NO PAST SURGERIES Medical History Medical History Date Comments Depression DX:Depression Encephalopathy DX:Encephalopath y Hypertension DX:Hypertension Multiple sclerosis ([facility] V24, [facility] V28) DX:Multiple sclerosis (HCC) Cervical myelopathy ([facility] V24, [facility] V28) DX:Cervical myelopathy (HCC) Pseudobulbar affect DX:Pseudobul bar affect Diabetes mellitus ([facility] V24, [facility] V28) DX:Diabetes mellitus (HCC) Family History Medical History Relation [...] Description 01/15/2025 8:30 AM EDT Office Visit [facility] [place] [address] [place] [phone] Fina Tsang PA [address] [place] [address] 03/19/2025 8:00 AM EDT Appointment [facility] Outpatient Rehabil[facility] - [place] [address] [place] [phone] Health Maintenance Due Date Last Done Comments [...] Td or Tdap) 09/30/2033 09/30/2023 RSV Immunization Adult Patients (1 - 1-dose 75+ series) 2040 Zoster [...] age to complete this topic Meningococcal B Vaccine Aged Out No l onger eligible based on patient's age to complete this topic RSV Immunization Patients Under 20 months Aged Out No longer eligible based on patient's age to complete this topic Varicella Vaccines Aged Out No longer eligible based on patient's age to complete this topic Procedures Procedure Name Priority Date/Time Associated Diagnosis Comments CREATININE, SERUM Routine 09/17/2024 8:0 4 AM EST HM FIT-DNA Routine 12/30/2023 from Last 3 Months or Most Recently Relevant to Health Maintenance Results * Creatinine (09/17/2024 8:04 AM EST) Creatinine 1.19 0.70 - 1.30 mg/dL LAB CHEMISTRY METHOD 09/17/2024 10:19 AM EST [facility] eGFR 70 >=60 mL/min/1. 73m2 LAB CHEMISTRY METHOD 09/17/2024 10:19 AM EST [facility] Comment:Calculation based on the??Chronic Kidney Disease Epidemiology Collaboration (CKD-EPI) equation refit??without adjustment for race. Blood Venous blood specimen / Unknown Venipuncture / Unknown 09/17/2024 8:04 AM EST 09/17/2024 8:05 AM EST Fina DIMAS LAB BLOOD ORDERABLES Final R esult 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
--- OUTSIDE RECORDS SUMMARY | 2025-01-08 08:44 | XMS_ITS | Clinical Summary ---
Author Organization [facility] Address [address] [place] [address] Care Team Providers Care Cook Night Name Role Phone Erlinda Sheets MD Primary Care Provider [phone] Allergies Active Allergy Reactions Criticality Noted Date [...] age to complete this topic Care Teams Cook Night Relationship Specialty Start Date End Date Po, Erlinda Contreras MD [address] [place] [address] [address] [facility] [place] [address] PCP - General Internal Medicine 07/05/23
== END 2025-01-08 09:01 | disposition home or self-care (01) ==
LOC: HO.HMCH 08:26
PROVIDERS: PCP Internal Medicine; Visit Provider Internal Medicine
DX: E11.65 Type 2 diabetes mellitus with hyperglycemia (principal); I10 Essential (primary) hypertension; E78.00 Pure hypercholesterolemia, unspecified; G35 Multiple sclerosis; F34.1 Dysthymic disorder; G47.33 Obstructive sleep apnea (adult) (pediatric); N28.9 Disorder of kidney and ureter, unspecified; K64.9 Unspecified hemorrhoids

== ENCOUNTER → 2025-01-08 08:25 | Outpatient (BNVA) | payer OTHER, SELFPAY | PROVIDERS: PCP Internal Medicine; Visit Provider Internal Medicine | DX: E11.65 Type 2 diabetes mellitus with hyperglycemia (principal); I10 Essential (primary) hypertension; E78.00 Pure hypercholesterolemia, unspecified; G35 Multiple sclerosis; F34.1 Dysthymic disorder; G47.33 Obstructive sleep apnea (adult) (pediatric); N28.9 Disorder of kidney and ureter, unspecified; K64.9 Unspecified hemorrhoids; Z79.84 Long term (current) use of oral hypoglycemic drugs; Z79.899 Other long term (current) drug therapy | CPT/HCPCS: 83036 ==

== ENCOUNTER 2025-01-14 08:14 | Outpatient (REF) | payer OTHER, SELFPAY ==
--- OUTSIDE RECORDS SUMMARY | 2025-01-14 08:30 | XMS_ITS | Encounter Summary ---
Author Organization [place] [address] Care Team Providers Care Acupuncture Physician Name Role Phone Erlinda Sheets MD Primary Care Provider [phone] Encounter Details Date Type Department Care Team (Late st Contact Info) Description 06/25/2024 8:20 AM EDT Hospital Encounter TH HISTORIC ENCOUNTERS EASTERN CONVERSION ONLY Fina Tsang PA [address] [place] [address] Social History Tobacco Use Types Packs/Day Years [...] JUDIE Kay - 06/25/2024 8:30 AM EDT [facility] Cc: MS [...] 6 months along with lab monitoring per [facility] protocol. - Brain and cervical [...] 30 minutes. The majority of the actual [id number] visit was spent counseling the patient with respect to the current neurological picture. Fina Tsang PA-C documented in this encounter Plan of Treatment Upcoming Encounters Date Type Department Care Team (Late st Contact Info) Description 01/15/2025 8:30 AM EDT Office Visit [facility] MS - [address] [place] [address] Fina Tsang PA [address] [address] 03/19/2025 8:00 AM EDT Appointment [facility] Outpatient Rehabil[facility] - [place] [address] [phone] documented as of this encounter Visit Diagnoses Not on filedocumented in this encounter Care Teams Acupuncture Physician Relationship Specialty Start Date End Date Erlinda Sheets MD [address] [place] [address] [address] [facility] [place] [address] PCP - General 07/05/23 documented as of this encounter
--- OUTSIDE RECORDS SUMMARY | 2025-01-14 08:30 | XMS_ITS | Clinical Summary ---
Author Organization [facility] Address [address] [place] [address] Care Team Providers Care Typewriter Operator Automatic Name Role Phone Erlinda Sheets MD Primary Care Provider [phone] Allergies Active Allergy Reactions Criticality Noted Date [...] age to complete this topic Care Teams Typewriter Operator Automatic Relationship Specialty Start Date End Date Po, Erlinda Contreras MD [address] [place] [address] [address] [facility] [place] [address] PCP - General Internal Medicine 07/05/23
--- OUTSIDE RECORDS SUMMARY | 2025-01-14 08:30 | XMS_ITS | Clinical Summary ---
Author Organization 175 [facility] Address [address] [place] [address] Phone Care Team Providers Care It Support Technician Name Role Phone Erlinda Sheets MD Primary Care Provider [phone] Allergies Active Allergy Reactions Criticality Noted Date [...] Problem Noted Date Diagnosed Date Multiple sclerosis ([facility] V24, [facility] V28) Depression 12/27/2019 Diabetes ([facility] V24, [facility] V28) 12/27/2019 Fatigue 12/27/2019 HLD (hyperlipidemia) 12/27/2019 Immunizations Name Administration Dates Next Due Moderna SARS-CoV-2 COVID-19, mRNA, LNP-S, preservative free 01/25/2022,05/09/2021,12/20/2020,2020 Surgical History Surgery Date Site/Laterality Comments NO PAST SURGERIES PROCEDURE:NO PAST SURGERIES Medical History Medical History Date Comments Depression DX:Depression Encephalopathy DX:Encephalopath y Hypertension DX:Hypertension Multiple sclerosis ([facility] V24, [facility] V28) DX:Multiple sclerosis (HCC) Cervical myelopathy ([facility] V24, [facility] V28) DX:Cervical myelopathy (HCC) Pseudobulbar affect DX:Pseudobul bar affect Diabetes mellitus ([facility] V24, [facility] V28) DX:Diabetes mellitus (HCC) Family History [...] Description 01/15/2025 8:30 AM EDT Office Visit [facility] [place] [address] [place] [phone] Fina Tsang PA [address] [place] [address] 03/19/2025 8:00 AM EDT Appointment [facility] Outpatient Rehabil[facility] - [place] [address] [place] [phone] Health Maintenance Due Date Last Done Comments [...] LAB BLOOD ORDERABLES Final R esult [facility] ([facility]) [facility] [address] [place] [address], [place] [phone] * FIT-DNA (Cologuard) (12/30/2023) [facility] Colorectal Cancer Screening: FIT-DNA (Cologuard) Abstracted, no interpretation Historical Provider MD HEALTH MAINTENANCE Final Result from Last 3 Months or Most Recently Relevant to Health Maintenance Insurance [employer] MEDICARE [place]ICAID - [place] Advance Directives Documents on File Type Date Recorded 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
[2025-01-14 08:44] LABS: MANUAL DIFF FLAG NO
[2025-01-14 08:46] LABS: Basophils Absolute Auto 0.1 X10*3/uL (0.0-0.2); Basophils Percent Auto 1.3 % (0-2); Eosinophils Absolute Auto 0.9 X10*3/uL (0.0-0.4); Eosinophils Percent Auto 11.5 % (0-4); Hematocrit 41.2 % (42.0-52.0); Hemoglobin 13.8 g/dl (14.0-18.0); Imm Gran Abs Auto 0.02 X10*3/uL (0.00-0.03); Imm Gran Pct Auto 0.3 % (0.0-0.4); Lymphocytes Absolute Auto 1.3 X10*3/uL (1.2-4.9); Lymphocytes Percent Auto 16.9 % (20-40); Mean Corpuscular HGB Conc 33.5 g/dl (31.0-36.0); Mean Corpuscular Hemoglobin 28.3 pg (27.0-33.0); Mean Corpuscular Volume 84.6 fL (80.0-98.0); Mean Platelet Volume 8.9 fL (9.4-12.4); Monocytes Absolute Auto 0.7 X10*3/uL (0.1-1.2); Monocytes Percent Auto 9.2 % (2-11); Neutrophils Absolute Auto 4.8 x10*3/uL (2.0-8.3); Neutrophils Percent Auto 60.8 % (45-73); Platelet Count 321 X10*3/uL (160-400); Red Blood Count 4.87 X10*6/uL (4.60-5.80); White Blood Count 7.9 X10*3/uL (4.8-10.8)
[2025-01-14 08:53] LABS: Estimated Average Glucose 143 mg/dL; Hemoglobin A1c % 6.6 % (<6.0); Total Hemoglobin (HGBA1C) 3628.3355 umol/L
[2025-01-14 09:11] LABS: Alanine Aminotransferase 25 U/L (0-40); Albumin Level 4.2 g/dL (3.5-5.0); Alkaline Phosphatase 92 U/L (39-117); Anion Gap 12 (12-20); Aspartate Amino Transferase 22 U/L (5-37); Blood Urea Nitrogen 22 mg/dL (9-16); Carbon Dioxide 24 mmol/L (22-29); Chloride 107 mmol/L (96-108); Cholesterol 133 mg/dL (<200); Estimated Glomerular Filt Rate 45; Glucose Random 132 mg/dL (60-115); HDL Cholesterol 35 mg/dL (>40); LDL Cholesterol Calculated 76 mg/dL (<100); Sodium 139 mmol/L (135-145); Total Protein 6.9 g/dL (6.5-8.0); Triglycerides 111 mg/dL (<150)
[2025-01-14 09:25] LABS: Free T4 (Free Thyroxine) 0.86 ng/dL (0.71-1.85); Thyroid Stimulating Hormone 1.66 uIU/mL (0.32-4.0)
[2025-01-14 09:41] LABS: Creatinine Urine 130.71 mg/dL
[2025-01-14 09:55] LABS: Folate 6.7 ng/mL (> or = 4.0); Vitamin B12 325 pg/mL (200-900)
== END 2025-01-14 08:15 | disposition home or self-care (01) ==
LOC: HO.LAB 08:14
PROVIDERS: PCP Internal Medicine; Visit Provider Internal Medicine
DX: E11.65 Type 2 diabetes mellitus with hyperglycemia (principal); E78.00 Pure hypercholesterolemia, unspecified; Z12.5 Encounter for screening for malignant neoplasm of prostate
CPT/HCPCS: 36415; 80053; 80061; 82570; 82607; 82746; 83036; 84153; 84439; 84443; 85025

== ENCOUNTER 2025-04-30 08:37 | Outpatient (AMB) | payer OTHER, SELFPAY ==
--- OUTSIDE RECORDS SUMMARY | 2024-06-25 08:20 | XMS_ITS | Encounter Summary ---
Author Organization [place] [address] Care Team Providers Care Power Generation Plant Operator Name Role Phone Erlinda Sheets MD Primary Care Provider [phone] Encounter Details Date Type Department Care Team (Late st Contact Info) Description 06/25/2024 8:20 AM EDT Hospital Encounter TH HISTORIC ENCOUNTERS EASTERN CONVERSION ONLY Fina Tsang PA [address] [place] [address] Social History Tobacco Use Types Packs/Day Years [...] JUDIE Kay - 06/25/2024 8:30 AM EDT [facility] Cc: MS HPI: Patient [...] event since he was last seen in health system. Denies changes in gait or balance, bowel [...] 6 months along with lab monitoring per [facility] protocol. - Brain and cervical spine MRIs [...] 30 minutes. The majority of the actual prly-[id number] visit was spent counseling the patient with respect to the current neurological picture. Fina Tsang PA-C documented in this encounter Plan of Treatment Upcoming Encounters Date Type Department Care Team (Late st Contact Info) Description 05/14/2025 8:00 AM EDT Office Visit [facility] [place] - [address] [place] [address] Mariluz Keen MD [address] [phone] 09/06/2025 8:00 AM EST Appointment [facility] [place] Outpatient Rehabilititation - [place] [address] [facility] [address] [place] [phone] documented as of this encounter Visit Diagnoses Not on filedocumented in this encounter Care Teams Power Generation Plant Operator Relationship Specialty Start Date End Date Erlinda Sheets MD [address] [place] [address] [address] [facility] [place] [address] PCP - General 07/05/23 documented as of this encounter
[2025-04-30 08:40] VITALS: BP 134/78; PULSE 71; O2SAT 96; BMI 31.2
--- NOTE | 2025-04-30 08:40 | MHC.PC.OV ---
Vital Signs 04/30/25 08:40 Height 5 ft 8 in Weight 205 lb BMI 31.2 BP 134/78 Blood Pressure Location Lt brachial Position Sitting Pulse 71 Pulse Source Pulse Oximeter Pulse Oximetry (%) 96 Oxygen Delivery Method Room Air Intake Visit Reasons: DM Allergies lisinopril (LISINOPRIL) Allergy (Mild, Verified 04/30/25 08:40) SCRATCHY THROAT teriflunomide Allergy (Mild, Verified 04/30/25 08:40) Rash Medication List - Last Reconciled 04/30/25 by Erlinda Sheets MD [ADULT DIAPERS XL As directed] atorvastatin 40 mg PO DAILY bupropion HCl XL 150 mg PO QAM cholecalciferol (vitamin D3) 4,000 units PO DAILY citalopram 40 mg PO DAILY empagliflozin (Jardiance) 10 mg PO DAILY hydrocortisone 2.5% (Proctosol HC) 1 appl ME BID-QID PRN losartan 25 mg PO DAILY metformin 500 mg PO BID mirtazapine 7.5 mg PO BEDTIME ocrelizumab (Ocrevus) 600 mg IV [id number] Tobacco use date assessed: 01/08/25 Dental Screening Dental Screen Date: 01/08/25 [facility] Medical History Sleep difficulties Snoring Excessive daytime sleepiness Tinnitus Colon cancer screening Esophageal bleed, non-variceal Surgical History No pertinent past surgical history Social History Housing: House Alcohol intake: never Patient Tobacco Use Status: Never used Tobacco Tobacco use type: Cigarette e-Cigarette/Vaping Use: Never Used Second Hand Smoke Exposure: No service: No Current occupational status: retired and disabled Cognitive needs: No Hearing needs: No Vision needs: Yes (Glasses) Questionnaire PHQ-9 Over the last 2 weeks, how often have you been bothered by any of the following problems? 1. Little interest or pleasure in doing things: not at all 2. Feeling down, depressed, or hopeless: not at all 3. Trouble falling or staying asleep, or sleeping too much: several days 4. Feeling tired or having little energy: several days 5. Poor appetite or overeating: several days 6. Feeling bad about yourself - or that you are a failure or have let yourself or your family down: not at all 7. Trouble concentrating on things, such as reading the newspaper or watching television: not at all 8. Moving or speaking so slowly that other people could have noticed. Or the opposite - being so fidgety or restless that you have been moving around a lot more than usual: not at all 9. Thoughts that you would be better off or of hurting yourself in some way: not at all Total score: 3 Source: Developed by Drs. Esvin Roman, Denise Zarate, Nam Ku and colleagues, with an educational jose francisco from [employer]. Thrive Questionnaire Date Thrive assessed: 09/27/24 I am a: Patient What is your living situation today?: I have a steady place to live Within the past 12 months, did the food you bought not last and you didn't have the money to get more?: Never true Within the past 12 months, did you worry whether your food would run out before you got money to buy more?: Never true Do you have trouble paying for medicines?: No Do you have trouble getting transportation to medical appointments?: No Do you have trouble paying your heating and electricity bill?: I choose not to answer this question Do you have trouble taking care of your child, family member or friend?: No Do you have trouble with day-to-day activities such as bathing, preparing meals, shopping, managing finances, etc.?: No Are you currently unemployed and looking for a job?: No Are you interested in more education?: No Please select the resources that you would like help with: None Currently or been in a relationship where the following occur: No concerns reported THRIVE Score: 0 AUDIT C Alcohol Use Questionnaire (AUDIT-C) 2. How many drinks containing alcohol do you have on a typical day when you are drinking?: 1 or 2 Total Score: 0 NISHA-7 AMB Questionnaire NISHA-7 Date NISHA - 7 assessed: 10/04/24 Source: Developed by Drs. Esvin Roman, Denise Zarate, Nam Ku and colleagues, with an educational jose francisco from [employer]. Physical exam (Primary Care) Vital Signs: Last Vital Signs Pulse 71 08/19/25 08:40 BP 134/78 04/30/25 08:40 Pulse Ox 96 04/30/25 08:40 Oxygen Delivery Method Room Air 04/30/25 08:40 BMI result Body Mass Index 31.2 Tobacco/Smoking Status: Tobacco use Status Tobacco use date assessed 01/08/25 04/30/25 08:41 Patient Tobacco Use Status Never used Tobacco 04/30/25 08:41 Tobacco use type Cigarette 04/30/25 08:41 e-Cigarette/Vaping Use Never Used 04/30/25 08:41 PHQ-9: PHQ-9 Score PHQ-9: Total score 3 04/30/25 08:55 Thrive Assessment: Date of Thrive Assessment Date Thrive assessed 09/27/24 04/30/25 08:41 Currently or been in a relationship where the following occur: No concerns reported Const General: alert; No acute distress Eyes Conjunctivae: conjunctivae normal Resp Auscultation: clear to auscultation bilaterally Cardio Rate: regular rate Rhythm: regular rhythm GI Inspection: Yes normal to inspection Extrem General: Yes normal to inspection and No edema Results AMB Hemoglobin A1c AMB Hemoglobin A1c 6.8 % Last Edit by Francine Briceño CMA on 04/30/25 08:57 Coding Level of Care Code Est Pt Level 4 (91233) Complex EM visit Add On G2211 Diagnoses Type 2 diabetes mellitus with hyperglycemia, without long-term current use of insulin E11.65 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: without long-term use Primary hypertension I10 Hypertension type: primary hypertension Hypercholesterolemia E78.00 Renal insufficiency N28.9 Relapsing remitting multiple sclerosis G35 Obstructive sleep apnea G47.33 Dysthymia F34.1 Rectal incontinence R15.9 Left leg weakness R29.898 Assessment & Plan Assessment & Plan (1) Type 2 diabetes mellitus with hyperglycemia: Comment: [facility] Code(s): E11.65 - Type 2 diabetes mellitus with hyperglycemia Category: Medical Qualifiers: Diabetes mellitus long-term insulin use: without termite inspector use Qualified Code(s): E11.65 - Type 2 diabetes mellitus with hyperglycemia Plan: Decrease the amount of carbohydrate intake, pasta, bread, rice and potatoes are all sugar and that is aside from all the sweet stuff, remember that fruits are good but they are Sweet also. Hemoglobin A1c goal of less than 6.5. Patient is on metformin 500 mg twice a day (2) Hypertension: Code(s): I10 - Essential (primary) hypertension Category: Medical Qualifiers: Hypertension type: primary hypertension Qualified Code(s): I10 - Essential (primary) hypertension Plan: Continue with blood pressure medication. Decrease salt intake and exercise on losartan 25 mg once a day (3) Hypercholesterolemia: Code(s): E78.00 - Pure hypercholesterolemia, unspecified Category: Medical Plan: Avoid fried foods, chicken skin, eggs, butter margarine, pastries and meat. Be it pork or beef they have a lot of cholesterol LDL goal of less than 100 and triglyceride of last blood work was done in January 2025 (4) Renal insufficiency: Code(s): N28.9 - Disorder of kidney and ureter, unspecified Category: Medical Plan: Improved and stable avoid NSAIDs well hydrated (5) Relapsing remitting multiple sclerosis: Comment: Cervical spine MRI September 2024MRI cervical spine solitary T2 hyperintense lesion in the right lateral called centered at C2-3 suggestive of demyelinating plaque no new lesion of active demyelination. Code(s): G35 - Multiple sclerosis Category: Medical Plan: Continue to follow-up with [facility] seen in January 2025. On Ocrevus every 6 months and placed back on mirtazapine (6) Obstructive sleep apnea: Comment: cannot tolerate CPAP (09/2024 using now) Code(s): G47.33 - Obstructive sleep apnea (adult) (pediatric) Category: Medical Plan: Continue to use the CPAP more than 4 hours a night and benefits from this (7) Dysthymia: Comment: [facility]- done 04/2025 Code(s): F34.1 - Dysthymic disorder Category: Medical Plan: Continue with and therapy (8) Rectal incontinence: Code(s): R15.9 - Full incontinence of feces Category: Medical (9) Left leg weakness: Code(s): R29.898 - Other symptoms and signs involving the musculoskeletal system Category: Medical Plan History of Present Illness The patient is a 60-year-old male presenting for a follow-up visit. The patient has a history of obesity, with a recent weight gain of 7 pounds. He has been diagnosed with multiple sclerosis and is currently stable on Ocrevus, 600 mg IV every 6 months, with annual brain and cervical spine MRIs. The patient also has a history of diabetes mellitus, with a recent hemoglobin A1c of 6.6, and is currently managed with metformin 500 mg twice a day. His blood sugar was noted to be 132 mg/dL, and there is a plan to consider adding Jardiance to his regimen. Hypertension is another chronic condition, managed with losartan 25 mg. His blood pressure has been stable, and renal function has improved from 1.78 to 1.57. The patient has hypercholesterolemia, with an LDL cholesterol level of 76 mg/dL, which is below the target of 100 mg/dL. He is advised to maintain this level to manage his cardiovascular risk. The patient has obstructive sleep apnea and is using CPAP therapy regularly, achieving more than 4 hours of use per night. He reports difficulty using the CPAP during hot weather but managed 7.5 hours of use last night. Preventative care includes a recent negative Cologuard test for colon cancer screening, which is up to date as of December 2023. Health Maintenance - Colon cancer screening with Cologuard, negative as of December 2023 - Regular use of CPAP for obstructive sleep apnea - Annual brain and cervical spine MRIs for multiple sclerosis - LDL cholesterol management with a target of less than 100 mg/dL Social History - The patient plans to go on vacation to [place] for 20 days and a 12-day cruise in 60 days. Review of Systems - Gastrointestinal: Reports diarrhea, denies constipation - Neurological: Reports difficulty standing for long periods, denies recent falls - Respiratory: Reports regular use of CPAP, denies difficulty breathing Physical Exam Results - Labs: Mild anemia with hemoglobin 13.8 g/dL, renal function improved to 1.57, blood sugar 132 mg/dL, hemoglobin A1c 6.6, LDL cholesterol 76 mg/dL - Screening: Cologuard negative as December 2023 Plan The patient will continue with Ocrevus for multiple sclerosis management, with regular follow-ups and annual MRIs to monitor disease progression. For diabetes mellitus, the current regimen of metformin will be maintained, and Jardiance may be added to improve glycemic control. Hypertension management will continue with losartan, and renal function will be monitored closely to ensure stability. The patient is advised to avoid NSAIDs and maintain adequate hydration to support renal health. For hypercholesterolemia, the patient will aim to maintain LDL levels below 100 mg/dL to reduce cardiovascular risk. Obstructive sleep apnea management includes continued CPAP use, with adjustments as needed for comfort during warmer weather. Preventative care measures include maintaining up-to-date colon cancer screening and considering adult diapers for bowel incontinence management. Patient was informed and verbally consented to the use of an ambient scribe for clinic note documentation during this visit. Discussion Notes I discussed with the patient the importance of continuing Ocrevus for multiple sclerosis and the need for regular MRIs to monitor the condition. We reviewed the diabetes management plan, considering the addition of Jardiance to improve blood sugar control, and emphasized the importance of monitoring renal function due to the patient's history of renal insufficiency. I advised the patient to maintain blood pressure control with losartan and to avoid NSAIDs to protect renal health. We also discussed the need to maintain LDL cholesterol levels below 100 mg/dL to reduce cardiovascular risk. For obstructive sleep apnea, I encouraged continued CPAP use and discussed strategies to improve comfort during warmer weather. Preventative care measures, including colon cancer screening and the potential use of adult diapers for bowel incontinence, were also addressed. Patient Instructions - Continue using Ocrevus as prescribed and attend regular MRI appointments. - Maintain current diabetes medication regimen and monitor blood sugar levels. - Avoid NSAIDs and stay hydrated to support kidney health. - Use CPAP regularly and adjust for comfort during hot weather. - Keep up with colon cancer screenings and consider adult diapers if needed. Orders: Orders AMB Hemoglobin A1c Today Z13.9 - Encounter for screening, unspecified XR hip LT w PEL1V Today R29.898 - Other symptoms and signs involving the musculoskeletal system XR knee LT 2V Today R29.898 - Other symptoms and signs involving the musculoskeletal system Medications: New [ADULT DIAPERS XL] As directed 240 ea 3RF R15.9 - Full incontinence of feces empagliflozin (Jardiance) 10 mg PO DAILY 30 tabs 3RF E11.65 - Type 2 diabetes mellitus with hyperglycemia
--- OUTSIDE RECORDS SUMMARY | 2025-04-30 09:20 | XMS_ITS ---
Author Name [facility] Organization Unknown History of Medication Use Medication Directions Dispensed Refills Start Date End Date Stat us acetaminophen (TYLENOL) tablet 975 mg 975 mg, Oral, Once, On Deonna 03/08/24 at 0900, For 1 doseGive 30 minutes prior to ocrelizumab. 03/08/2024 4 completed famotidine (PF) (PEPCID) injection 20 mg 20 mg, Intravenous, Once, On Deonna 03/08/24 at 0900, For 1 doseGive 30 minutes prior to ocrelizumab. Administer only if patient intolerant to diphenhydramine (BENADRYL). IV push over 2-3 minutes. 03/08/2024 4 completed buPROPion (WELLBUTRIN XL) 150 MG 24 hr tablet Take 1 tablet (150 mg total) by mouth daily. 12/22/2023 active Melatonin 5 MG TABS 1 tablet in the evening active metFORMIN (GLUCOPHAGE) tablet 500 mg Take 1 tablet (500 mg total) by mouth 2 (two) times a day with meals. active Allergies Allergen Reaction Severity Comment Documented Date Source Statu s TERIFLUNOMIDE 07/27/2022 [facility] active LISINOPRIL 01/09/2020 [facility] active Problems Problem Status Onset Date Problem Type Date of Resoluti on Source Diabetes active 2019-12-27 ProblemAct [facility] Multiple sclerosis active 2021-02-17 ProblemAct [facility] Fatigue active 2019-12-27 ProblemAct [facility] Depression active 2019-12-27 ProblemAct [facility] HLD (hyperlipidemia) active 2019-12-27 ProblemAct [facility] Immunizations Vaccine Date Source Lot Number Status Covid-19 (Moderna Booster 18+) 0.25mL dosage 01/25/2022 [facility] completed Covid-19 (Moderna Booster 18+) 0.25mL dosage 05/09/2021 [facility] completed Covid-19 (Moderna 12+) 100mcg/0.5mL dosage 12/20/2020 [facility] completed Covid-19 (Moderna 12+) 100mcg/0.5mL dosage 11/22/2020 [facility] completed Care Team Organization Name Specialty Phone Email Start Date End [facility] te [facility] VIVIAN MORELOS Primary Care 07/20/20222023
--- OUTSIDE RECORDS SUMMARY | 2025-04-30 09:20 | XMS_ITS | Clinical Summary ---
Author Organization [facility] Address [address] [place] [address] Care Team Providers Care Plane Captain Name Role Phone Erlinda Sheets MD Primary Care Provider [phone] Allergies Active Allergy Reactions Criticality Noted Date [...] 87 06/25/2024 8:32 AM EDT Temperature 36.1 C (96.9 F) 06/25/2024 8:32 AM EDT Respiratory Rate 18 03/08/2024 11:2 8 AM EDT Oxygen Saturation 96% 03/08/2024 11: 28 AM EDT Inhaled Oxygen Concentration - - Weight 89.3 kg (196 lb 12.8 oz) 06/25/2024 8:32 AM EDT Height 172.7 cm (5' 8 ) 06/25/2024 8:32 AM EDT Body Mass Index 29.92 06/25/2024 8:32 AM EDT Plan of Treatment Health Maintenance Due Date Last Done Comments Hepatitis C Screening 1965 Pneumococcal Vaccine (1 of 2 - PCV) 1971 Depression Screening 1977 BMI Counseling 1983 Preventative Health Evaluation 1983 DTap / Tdap / Td (1 - Tdap) 1984 Colon Cancer Screening (Colonoscopy) 2010 Shingrix-Zoster Vaccine (1 of 2) 2015 COVID-19 Vaccine (5 - season) 2024 01/25/2022, 05/09/2021, 12/20/2020, Additional history exists Influenza Vaccine (#1) 2025 RSV Adult > 60+ Yrs or (1 - 1-dose 75+ series) 2040 Hepatitis B Vaccines Aged Out No long er eligible based on patient's age to complete this topic RSV Ped < 20 months Aged Out No longe r eligible based on patient's age to complete this topic Care Teams Plane Captain Relationship Specialty Start Date End Date Erlinda Sheets MD [address] [place] [address] [address] [facility] [place] [address] PCP - General Internal Medicine 07/05/23
== END 2025-04-30 09:10 | disposition home or self-care (01) ==
LOC: HO.HMCH 08:38
PROVIDERS: PCP Internal Medicine; Visit Provider Internal Medicine
DX: E11.65 Type 2 diabetes mellitus with hyperglycemia (principal); G35 Multiple sclerosis; I10 Essential (primary) hypertension; E78.00 Pure hypercholesterolemia, unspecified; N28.9 Disorder of kidney and ureter, unspecified; G47.33 Obstructive sleep apnea (adult) (pediatric); F34.1 Dysthymic disorder; R15.9 Full incontinence of feces; R29.898 Other symptoms and signs involving the musculoskeletal system

== ENCOUNTER → 2025-04-30 08:37 | Outpatient (BNVA) | payer OTHER, SELFPAY | PROVIDERS: PCP Internal Medicine; Visit Provider Internal Medicine | DX: E11.65 Type 2 diabetes mellitus with hyperglycemia (principal); I10 Essential (primary) hypertension; E78.00 Pure hypercholesterolemia, unspecified; N28.9 Disorder of kidney and ureter, unspecified; G35 Multiple sclerosis; G47.33 Obstructive sleep apnea (adult) (pediatric); F34.1 Dysthymic disorder; R15.9 Full incontinence of feces; R29.898 Other symptoms and signs involving the musculoskeletal system; E66.9 Obesity, unspecified; Z79.899 Other long term (current) drug therapy | CPT/HCPCS: 83036; 96127 ==

== ENCOUNTER 2025-05-01 09:04 | Outpatient (REF) | payer OTHER, SELFPAY ==
--- OUTSIDE RECORDS SUMMARY | 2024-06-25 08:20 | XMS_ITS | Encounter Summary ---
Author Organization [place] [address] Care Team Providers Care Valve Setter Name Role Phone Erlinda Sheets MD Primary Care Provider [phone] Encounter Details Date Type Department Care Team (Late st Contact Info) Description 06/25/2024 8:20 AM EDT Hospital Encounter TH HISTORIC ENCOUNTERS EASTERN CONVERSION ONLY Fina Tsang PA [address] [place] [address] Social History Tobacco Use Types Packs/Day Years [...] JUDIE Kay - 06/25/2024 8:30 AM EDT [facility] Cc: MS HPI: Patient [...] event since he was last seen in [facility]. Denies changes in gait or balance, [...] 6 months along with lab monitoring per [facility] protocol. - Brain and cervical [...] 30 minutes. The majority of the actual [id number]-vu-uucu visit was spent counseling the patient with respect to the current neurological picture. Fina Tsang PA-C documented in this encounter Plan of Treatment Upcoming Encounters Date Type Department Care Team (Late st Contact Info) Description 05/14/2025 8:00 AM EDT Office Visit [facility] [place] - [address] [place] [address] Mariluz Keen MD [address] [phone] 09/06/2025 8:00 AM EST Appointment [facility] [place] Outpatient Rehabilititation - [place] [address] [facility] [address] [place] [phone] documented as of this encounter Visit Diagnoses Not on filedocumented in this encounter Care Teams Valve Setter Relationship Specialty Start Date End Date Erlinda Sheets MD [address] [place] [address] [address] [facility] [place] [address] PCP - General 07/05/23 documented as of this encounter
--- NOTE | ~2025-05-01 | XR_ITS ---
EXAMINATION: XR HIP, LEFT CLINICAL INFORMATION: R29.898 - Other symptoms and signs involving the musculoskeletal system COMPARISON: None available. TECHNIQUE: AP upright, AP supine, and frog-leg lateral views of the left hip. FINDINGS: SI joints are unremarkable. Pubic symphysis joint is unremarkable. There is patchy and confluent calcific density projecting over the medial and inferior right hip joint and the superior medial left hip joint. Joint spaces are preserved. Marginal osteophytes are present involving the left femoral head fovea. XR/XR hip LT w PEL1V IMPRESSION: Patchy and confluent periarticular calcifications are present over the hip joints, right greater than left. Calcifications probably involve the soft tissues, for example the joint capsule, and could be related to tumoral calcinosis, connective tissue disease or remote injury /remote hemarthrosis. Electronically signed by: Amaury Karimi MD 05/01/2025 10:31 AM EDT
--- NOTE | ~2025-05-01 | XR_ITS ---
EXAMINATION: XR KNEE, LEFT CLINICAL INFORMATION: R29.898 - Other symptoms and signs involving the musculoskeletal system COMPARISON: None available. TECHNIQUE: AP and lateral views of the left knee. FINDINGS: Joint spaces are preserved. There is no joint effusion. There are no osteophytes. There is no soft tissue calcification. XR/XR knee LT 2V IMPRESSION: Unremarkable left knee. Electronically signed by: Amaury Karimi MD 05/01/2025 10:31 AM EDT
--- OUTSIDE RECORDS SUMMARY | 2025-05-01 09:46 | XMS_ITS | Clinical Summary ---
Author Organization [facility] Address [address] [place] [address] Care Team Providers Care Stove Bottom Worker Name Role Phone Erlinda Sheets MD Primary Care Provider [phone] Allergies Active Allergy Reactions Criticality Noted Date [...] age to complete this topic Care Teams Stove Bottom Worker Relationship Specialty Start Date End Date Erlinda Sheets MD [address] [place] [address] [address] [facility] [place] [address] PCP - General Internal Medicine 07/05/23
== END 2025-05-01 09:05 | disposition home or self-care (01) ==
LOC: HO.HMGCX 09:04
PROVIDERS: PCP Internal Medicine; Visit Provider Internal Medicine
DX: R29.898 Other symptoms and signs involving the musculoskeletal system (principal)
CPT/HCPCS: 73502; 73560

== ENCOUNTER → 2025-05-01 09:20 | Outpatient (BNV) | payer OTHER, SELFPAY | PROVIDERS: PCP Internal Medicine; Visit Provider Radiology Diagnostic Radiology | DX: M11.252 Other chondrocalcinosis, left hip (principal); M62.81 Muscle weakness (generalized) | CPT/HCPCS: 73502; 73560 ==

== ENCOUNTER 2025-05-30 15:51 | Outpatient (AMB) | payer OTHER, SELFPAY ==
--- OUTSIDE RECORDS SUMMARY | 2024-06-25 08:20 | XMS_ITS | Encounter Summary ---
Author Organization [place] [address] Care Team Providers Care Assembly Stock Supervisor Name Role Phone Erlinda Sheets MD Primary Care Provider [phone] Encounter Details Date Type Department Care Team (Late st Contact Info) Description 06/25/2024 8:20 AM EDT Hospital Encounter TH HISTORIC ENCOUNTERS EASTERN CONVERSION ONLY Fina Tsang PA [address] [place] [address] Social History Tobacco Use Types Packs/Day Years [...] JUDIE Kay - 06/25/2024 8:30 AM EDT [facility] Cc: MS [...] event since he was last seen in [facility]. Denies changes in gait or balance, [...] 6 months along with lab monitoring per [facility] protocol. - Brain and cervical spine MRIs [...] 30 minutes. The majority of the actual iefz-[id number]-[id number] visit was spent counseling the patient with respect to the current neurological picture. Fina Tsang PA-C documented in this encounter Plan of Treatment Upcoming Encounters Date Type Department Care Team (Late st Contact Info) Description 09/06/2025 8:00 AM EST Appointment [facility] [place] Outpatient Rehabilititation - [address] [phone] documented as of this encounter Visit Diagnoses Not on filedocumented in this encounter Care Teams Assembly Stock Supervisor Relationship Specialty Start Date End Date Erlinda Sheets MD [address] [place] [address] [address] [facility] [place] [address] PCP - General 07/05/23 documented as of this encounter
--- NOTE | 2025-05-30 15:51 | MHC.PC.OV ---
Intake Visit Reasons: COVID Pos. Allergies lisinopril (LISINOPRIL) Allergy (Mild, Verified 05/30/25 15:51) SCRATCHY THROAT teriflunomide Allergy (Mild, Verified 05/30/25 15:51) Rash Medication List - Last Reconciled 05/30/25 by Erlinda Sheets MD [ADULT DIAPERS XL As directed] atorvastatin 40 mg PO DAILY bupropion HCl XL 150 mg PO QAM cholecalciferol (vitamin D3) 4,000 units PO DAILY citalopram 40 mg PO DAILY empagliflozin (Jardiance) 10 mg PO DAILY hydrocortisone 2.5% (Proctosol HC) 1 appl DE BID-QID PRN losartan 25 mg PO DAILY metformin 500 mg PO BID mirtazapine 7.5 mg PO BEDTIME nirmatrelvir-ritonavir 150 mg (10)- 100 mg (10) (Paxlovid) PO PER PKG DIR nirmatrelvit 150 mg with Ritonavir 100 mg BID 5 days ocrelizumab (Ocrevus) 600 mg IV [id number] Tobacco use date assessed: 05/30/25 Dental Screening Dental Screen Date: 05/30/25 Did you have a dental visit in the last 12 months?: Yes Did you have a dental problem in the last 6 months where you did not have access to dental care?: No Was dental information given to patient?: Patient has dentist HPI COVID Pos. HPI Details sore throat, lost of taste fever tested positive yesterday covid 19. PFSH Medical History Sleep difficulties Snoring Excessive daytime sleepiness Tinnitus Colon cancer screening Esophageal bleed, non-variceal Surgical History No pertinent past surgical history Social History Housing: House Alcohol intake: never Patient Tobacco Use Status: Never used Tobacco Tobacco use type: Cigarette e-Cigarette/Vaping Use: Never Used Second Hand Smoke Exposure: No service: No Current occupational status: retired and disabled Cognitive needs: No Hearing needs: No Vision needs: Yes (Glasses) Questionnaire PHQ-9 Over the last 2 weeks, how often have you been bothered by any of the following problems? 1. Little interest or pleasure in doing things: not at all 2. Feeling down, depressed, or hopeless: not at all 3. Trouble falling or staying asleep, or sleeping too much: several days 4. Feeling tired or having little energy: several days 5. Poor appetite or overeating: several days 6. Feeling bad about yourself - or that you are a failure or have let yourself or your family down: not at all 7. Trouble concentrating on things, such as reading the newspaper or watching television: not at all 8. Moving or speaking so slowly that other people could have noticed. Or the opposite - being so fidgety or restless that you have been moving around a lot more than usual: not at all 9. Thoughts that you would be better off or of hurting yourself in some way: not at all Total score: 3 Source: Developed by Drs. Esvin Roman, Denise Zarate, Nam Ku and colleagues, with an educational jose francisco from [employer]. Thrive Questionnaire Date Thrive assessed: 09/27/24 I am a: Patient What is your living situation today?: I have a steady place to live Within the past 12 months, did the food you bought not last and you didn't have the money to get more?: Never true Within the past 12 months, did you worry whether your food would run out before you got money to buy more?: Never true Do you have trouble paying for medicines?: No Do you have trouble getting transportation to medical appointments?: No Do you have trouble paying your heating and electricity bill?: I choose not to answer this question Do you have trouble taking care of your child, family member or friend?: No Do you have trouble with day-to-day activities such as bathing, preparing meals, shopping, managing finances, etc.?: No Are you currently unemployed and looking for a job?: No Are you interested in more education?: No Please select the resources that you would like help with: None Currently or been in a relationship where the following occur: No concerns reported THRIVE Score: 0 AUDIT C Alcohol Use Questionnaire (AUDIT-C) 1. How often do you have a drink containing alcohol?: Never 3. How often do you have six or more drinks on one occasion?: Never Total Score: 0 NISHA-7 AMB Questionnaire NISHA-7 Date NISHA - 7 assessed: 10/04/24 Feeling nervous, anxious, or on edge: 1 = Several days Not being able to stop or control worryin = Several days Worrying too much about different things: 1 = Several days Trouble relaxin = Several days Being so restless that it is hard to sit still: 1 = Several days Becoming easily annoyed or irritable: 1 = Several days Feeling afraid as if something awful might happen: 0 = Not at all Total NISHA-7 score (0-4 normal; 5-9 mild; 10-14 moderate; 15-21 severe): 6 Source: Developed by Drs. Esvin Roman, Denise Zarate, Nam Ku and colleagues, with an educational jose francisco from [employer]. Physical exam (Primary Care) Tobacco/Smoking Status: Tobacco use Status Tobacco use date assessed 05/30/25 05/30/25 15:53 Patient Tobacco Use Status Never used Tobacco 05/30/25 15:53 Tobacco use type Cigarette 05/30/25 15:53 e-Cigarette/Vaping Use Never Used 05/30/25 15:53 PHQ-9: PHQ-9 Score PHQ-9: Total score 3 05/30/25 15:53 Thrive Assessment: Date of Thrive Assessment Date Thrive assessed 09/27/24 05/30/25 15:53 Currently or been in a relationship where the following occur: No concerns reported Telehealth Telehealth Telehealth Platform: Telephone Location of provider rendering services: practice address Location of patient: address on file Patient Identification confirmed using: Name, : Yes Telehealth method: voice only Patient verbally consented to treatment: Yes Patient verbally consented to billing insurance company: Yes Patient informed of any privacy concerns related to visit: Yes Minutes spent on Phone/Video with Pt.: 15 Coding Level of Care Code Tele Est Pt Level 3 (08891) Diagnoses COVID-19 virus infection U07.1 Assessment & Plan Assessment & Plan (1) COVID-19 virus infection: Comment: [id number] Code(s): U07.1 - COVID-19 Category: Medical Plan Paxlovid prescription sent in renal dose. For the sore throat can take Cepacol lozenges, discussed about Delsym to help with dry cough so she can rest and advised to increase oral fluids. Patient also can take Tylenol for chills and fever. History of Present Illness The patient is a 60-year-old male presenting with symptoms of COVID-19 infection. He reported a sore throat and loss of taste, which prompted testing for COVID-19. He also mentioned experiencing intermittent fever and discomfort from thyroid cysts. This is the patient's third COVID-19 infection, with the previous occurrence in May 2023. He has a history of obesity, multiple sclerosis, diabetes mellitus, hypertension, and hypercholesterolemia. The patient has a renal condition with a creatinine level of 1.57, necessitating a modified dosing of Paxlovid. He is advised to hold his atorvastatin during the antiviral treatment. Review of Systems - General: Reports intermittent fever. - ENT: Reports sore throat. - Endocrine: Reports discomfort from thyroid cysts. - Neurological: Reports loss of taste. Plan Patient was informed and verbally consented to the use of an ambient scribe for clinic note documentation during this visit. 1. Covid-19 Infection The patient is prescribed Paxlovid with a renal dose adjustment due to his creatinine level of 1.57. He is instructed to hold atorvastatin during the antiviral treatment. Additional recommendations include staying hydrated and using lozenges for sore throat relief. For cough management, Delsim or guaifenesin is suggested. Discussion Notes I discussed with the patient the management of his COVID-19 infection, including the prescription of Paxlovid with renal dosing adjustments due to his creatinine level. We reviewed the need to hold atorvastatin during the antiviral course and emphasized the importance of hydration and symptomatic relief measures such as lozenges and cough suppressants. Patient Instructions - Take Paxlovid as prescribed with renal dose adjustment. - Hold atorvastatin during the antiviral treatment. - Stay hydrated and use lozenges for sore throat relief. - Use Delsim or guaifenesin for cough management. Medications: New nirmatrelvir-ritonavir 150 mg (10)- 100 mg (10) (Paxlovid) PO PER PKG DIR nirmatrelvit 150 mg with Ritonavir 100 mg BID 20 tabs 0RF 5 days U07.1 - COVID-19
--- OUTSIDE RECORDS SUMMARY | 2025-05-30 17:00 | XMS_ITS | Clinical Summary ---
Author Organization [facility] Address [address] [place] [address] Phone Care Team Providers Care Education Diagnostician Name Role Phone Erlinda Sheets MD Primary Care Provider [phone] Allergies Active Allergy Reactions Criticality Noted Date Comments Lisinopril Unknown 01/09/2020 Teriflunomide 07/27/2022 Medications atorvastatin (LIPITOR) 40 mg tablet Take 1 tablet (40 mg total) by mouth. 0 Active cholecalciferol (VITAMIN D-3) 25 mcg (1,000 unit) tablet Take 1 tablet (1,000 Units total) by mouth. Active metFORMIN (GLUCOPHAGE) 500 mg tablet Take 1 tablet (500 mg total) by mouth 2 (two) times a day. Active ocrelizumab (OCREVUS) 30 mg/mL solution injection Infuse 20 mL (600 mg total) into a venous catheter. Active buPROPion XL (WELLBUTRIN XL) 150 mg 24 hr tablet Take 1 tablet (150 mg total) by mouth 1 (one) time each day. Sig - Route: Take 1 tablet (150 mg total) by mouth daily. - Oral Do not crush, chew, or split. 30 each 2 5 Active mirtazapine (REMERON) 7.5 mg tablet Take 1 tablet (7.5 mg total) by mouth at bedtime. 90 each 1 5 09/08/20 25 Active losartan (COZAAR) 25 mg tablet Take 1 tablet (25 mg total) by mouth 1 (one) time each day. 5 Active citalopram (CeleXA) 40 mg tablet Take 1 tablet (40 mg total) by mouth 1 (one) time each day. 30 each 5 5 10/29/19 26 Active citalopram (CeleXA) 40 mg tablet Take 1 tablet (40 mg total) by mouth 1 (one) time each day. 30 each 5 4 05/02/20 25 Discontinu ed(Reorder ) Active Problems Problem Noted Date Diagnosed Date Multiple sclerosis 02/17/2021 Depression 12/27/2019 Diabetes ([facility] V24, [facility] V28) 12/27/2019 Fatigue 12/27/2019 HLD (hyperlipidemia) 12/27/2019 Encounters Date Type Department Care Team Description 03/19/2025 7:47 AM EDT - 03/19/2025 11:59 PM EDT Hospital Encounter [facility] [address] [address] Multiple sclerosis ([facility] V24, [facility] V28) (Primary Dx); Encounter for therapeutic drug monitoring; Vitamin D deficiency Discharge Disposition: Home or Self Care from Last 3 Months Immunizations Name Administration Dates Next Due Moderna SARS-CoV-2 COVID-19, mRNA, LNP-S, preservative free 01/25/2022,05/09/2021,12/20/2020,2020 Surgical History Surgery Date Site/Laterality Comments NO PAST SURGERIES PROCEDURE:NO PAST SURGERIES Medical History Medical History Date Comments Depression DX:Depression Encephalopathy DX:Encephalopath y Hypertension DX:Hypertension Multiple sclerosis DX:Multiple s clerosis (HCC) Cervical myelopathy (CMS/HCC V24, [facility] V28) DX:Cervical myelopathy (HCC) Pseudobulbar affect DX:Pseudobul bar affect Diabetes mellitus ([facility] V24, [facility] V28) DX:Diabetes mellitus (HCC) Family History Medical [...] Sign Reading Time Taken Comments Blood Pressure 117/76 03/19/2025 10:39 AM EDT Pulse 69 03/19/2025 10:39 AM EDT Temperature 36.1 C (96.9 F) 03/19/2025 10:39 AM EDT Respiratory Rate 19 03/19/2025 10:39 AM EDT Oxygen Saturation 94% 03/19/2025 10:39 AM EDT Inhaled Oxygen Concentration - - Weight 89.4 kg (197 lb) 01/15/2025 8:21 AM EDT Height 172.7 cm (5' 8 ) 01/15/2025 8:21 AM EDT Body Mass Index 29.95 01/15/2025 8:21 AM EDT Plan of Treatment Upcoming Encounters Date Type Department Care Team (Late st Contact Info) Description 09/06/2025 8:[address] [facility] Out[facility] [address] [place] [address] Health Maintenance Due Date Last Done Comments Diabetes: Annual Foot Exam 1975 Diabetes: Annual Retina Eye Exam 1975 Cholesterol Screening (Lipid Panel) 08/20/2022 HIV Screening 08/20/2022 Hepatitis C Screening 08/20/2022 Medicare Annual Wellness Visit 08/20/2022 Social Influencers of Health Screening 08/20/2022 Diabetes: Annual Urine Albumin-Creatinine Ratio (uACR) 09/10/2022 Diabetes: Blood Sugar Control Test (HGBA1C) 09/10/2022 Depression Screening 09/12/2024 Influenza Vaccine (#1) 2025 , 07/05/2023, 07/29/2022, Additional history exists Diabetes: Annual GFR (Glomerular Filtration Rate) 03/19/2026 03/19/2025, 09/17/2024 Colorectal Cancer Screening: FIT-DNA (Cologuard) 12/29/2026 12/30/2023, 12/30/2023, 12/30/2023, Additional history exists Pneumococcal Vaccine: 50+ Years (3 of 3 - PCV20 or PCV21) 01/29/2028 01/28/2023, 12/19/2018, 12/13/2017 DTaP,Tdap,and Td Vaccines (2 - Td or Tdap) 09/30/2033 09/30/2023 RSV Immunization Adult Patients (1 - 1-dose 75+ series) 2040 Zoster Vaccines Completed 12/10/2023, 10/08/2023 COVID-19 Vaccine Completed 06/18/2024, , 09/29/2022, Additional history exists HIB Vaccines Aged Out No longer eligi ble based on patient's age to complete this topic HPV Vaccines Aged Out No longer eligi ble based on patient's age to complete this topic Hepatitis A Vaccines Aged Out No long er eligible based on patient's age to complete this topic Hepatitis B Vaccines Aged Out No long [...] Procedure Name Priority Date/Time Associated Diagnosis Comments CBC WITH AUTO DIFFERENTIAL Routine 03/19/2025 8:00 AM EDT Multiple sclerosis ([facility]/HCC V24, CMS/HCC V28) Encounter for therapeutic drug monitoring HEPATIC FUNCTION PANEL Routine 03/19/2025 8:00 AM EDT Multiple sclerosis (CMS/HCC V24, CMS/HCC V28) Encounter for therapeutic drug monitoring CBC AND DIFFERENTIAL Routine 03/19/2025 8:00 AM EDT Multiple sclerosis (CMS/HCC V24, CMS/HCC V28) Encounter for therapeutic drug monitoring VITAMIN D 25 HYDROXY Routine 03/19/2025 8:00 AM EDT Multiple sclerosis ([facility] V24, [facility] V28) Encounter for therapeutic drug monitoring Vitamin D deficiency VITAMIN B12 Routine 03/19/2025 8:00 AM EDT Multiple sclerosis ([facility] V24, [facility] V28) Encounter for therapeutic drug monitoring BUN Routine 03/19/2025 8:00 AM EDT Multiple sclerosis ([facility] V24, [facility] V28) Encounter for therapeutic drug monitoring CREATININE, SERUM Routine 03/19/2025 8:0 0 AM EDT Multiple sclerosis ([facility] V24, [facility] V28) Encounter for therapeutic drug monitoring HM FIT-DNA Routine 12/30/2023 from Last 3 Months or Most Recently Relevant to Health Maintenance Results * (ABNORMAL) CBC auto differential (03/19/2025 8:00 AM EDT) WBC 7.3 4.8 - 10.8 K/mcL LAB HEMETOLOGY METHOD 03/19/2025 10:09 AM [facility] RBC 4.80 4.50 - 5.50 M/mcL LAB HEMETOLOGY METHOD 03/19/2025 10:09 AM [facility] Hemoglobin 13.9 13.5 - 17.5 g/dL LAB HEMETOLOGY METHOD 03/19/2025 10:09 AM [facility] Hematocrit 41.7(L) 42.0 - 54.0 % LAB HEMETOLOGY METHOD 03/19/2025 10:09 AM [facility] MCV 86.3 79.0 - 98.0 FL LAB HEMETOLOGY METHOD 03/19/2025 10:09 AM [facility] MCH 28.8 27.0 - 32.0 pcg LAB HEMETOLOGY METHOD 03/19/2025 10:09 AM [facility] MCHC 33.3 32.0 - 37.0 g/dL LAB HEMETOLOGY METHOD 03/19/2025 10:09 AM [facility] RDW 13.1 11.0 - 15.0 % LAB HEMETOLOGY METHOD 03/19/2025 10:09 AM [facility] Platelets 357 130 - 400 K/mcL LAB HEMETOLOGY METHOD 03/19/2025 10:09 AM [facility] MPV 9.7 7.0 - 11.0 FL LAB HEMETOLOGY METHOD 03/19/2025 10:09 AM [facility] NRBC 0.0 <1.0 % LAB HEMETOLOGY METHOD 03/19/2025 10:09 AM [facility] NRBC Absolute 0.00 <0.10 K/mcL LAB HEMETOLOGY METHOD 03/19/2025 10:09 AM [facility] Neutrophils Relative 63.6 % LAB HEMETOLOGY METHOD 03/19/2025 10:09 AM [facility] Lymphocytes Relative 15.7 % LAB HEMETOLOGY METHOD 03/19/2025 10:09 AM [facility] Monocytes Relative 6.3 % LAB HEMETOLOGY METHOD 03/19/2025 10:09 AM [facility] Eosinophils Relative 12.6 % LAB HEMETOLOGY METHOD 03/19/2025 10:09 AM [facility] Basophils Relative 1.5 % LAB HEMETOLOGY METHOD 03/19/2025 10:09 AM [facility] Immature Granulocytes Relative 0.3 % LAB HEMETOLOGY METHOD 03/19/2025 10:09 AM [facility] Neutrophils Absolute 4.63 1.50 - 7.00 K/mcL LAB HEMETOLOGY METHOD 03/19/2025 10:[address] [facility] Lymphocytes Absolute 1.14 1.00 - 5.00 K/mcL LAB HEMETOLOGY METHOD 03/19/2025 10:[address] [facility] Monocytes Absolute 0.46 0.20 - 1.00 K/mcL LAB HEMETOLOGY METHOD 03/19/2025 10:[address] [facility] Eosinophils Absolute 0.92(H) 0.00 - 0.50 K/mcL LAB HEMETOLOGY METHOD 03/19/2025 10:[address] [facility] Basophils Absolute 0.11 0.00 - 0.20 K/[facility] LAB HEMETOLOGY METHOD 03/19/2025 10:[address] [facility] Immature Granulocytes Absolute 0.02 0.00 - 0.03 K/[facility] LAB HEMETOLOGY METHOD 03/19/2025 10:[address] [facility] Blood Venous blood specimen / Unknown Venipuncture / Unknown 03/19/2025 8:00 AM EDT 03/19/2025 8:00 AM EDT Fina DIMAS LAB BLOOD ORDERABLES Final R esult [facility] [address] [place] [address], * (ABNORMAL) Creatinine (03/19/2025 8:00 AM EDT) Creatinine 1.76(H) 0.70 - 1.30 mg/dL LAB CHEMISTRY METHOD 03/19/2025 10:[address] [facility] eGFR 44(L) >=60 mL/min/1. 73m2 LAB CHEMISTRY METHOD 03/19/2025 10:[address] [facility] Comment:Calculation based on the Chronic Kidney Disease Epidemiology Collaboration (CKD-EPI) equation refit without adjustment for race. Blood Venous blood specimen / Unknown Venipuncture / Unknown 03/19/2025 8:00 AM EDT 03/19/2025 8:00 AM EDT Finapaola Renoi PA LAB BLOOD ORDERABLES Final R esult Performing Organization Address [facility]/ZIP Co de Phone Number [facility] [address] [place] [address], [place] [phone] * Vitamin D 25 hydroxy (03/19/2025 8:00 AM EDT) Vit D, 25-Hydroxy 47.4 30.0 - 80.0 ng/mL LAB CHEMISTRY METHOD 03/19/2025 11:[address] [facility] Blood Venous blood specimen / Unknown Venipuncture / Unknown 03/19/2025 8:00 AM EDT 03/19/2025 8:00 AM EDT Finapaola Renoi PA LAB BLOOD ORDERABLES Final R esult Performing Organization Address [facility] Co de Phone Number [facility] [address] [place] [address], [place] [phone] * BUN (03/19/2025 8:00 AM EDT) BUN 18 5 - 25 mg/dL LAB CHEMISTRY METHOD 03/19/2025 10:[address] [facility] Blood Venous blood specimen / Unknown Venipuncture / Unknown 03/19/2025 8:00 AM EDT 03/19/2025 8:00 AM EDT Finapaola Renoi PA LAB BLOOD ORDERABLES Final R esult Performing Organization Address City/[facility]/ZIP Co de Phone Number [facility] [address] [place] [address], [place] [phone] * Vitamin B12 (03/19/2025 8:00 AM EDT) Pathologist [facility] Vitamin B-12 265 250 - 900 pcg/mL LAB CHEMISTRY METHOD 03/19/2025 11:15 AM [facility] Blood Venous blood specimen / Unknown Venipuncture / Unknown 03/19/2025 8:00 AM EDT 03/19/2025 8:00 AM EDT Fina DIMAS LAB BLOOD ORDERABLES Final R esult [facility] [address] [place] [address], * Hepatic function panel (03/19/2025 8:00 AM EDT) [facility] Total Protein 6.8 6.0 - 8.0 g/dL LAB CHEMISTRY METHOD 03/19/2025 11:15 AM [facility] Albumin 3.7 3.2 - 5.0 g/dL LAB CHEMISTRY METHOD 03/19/2025 11:15 AM [facility] Total Bilirubin 0.6 0.0 - 1.4 mg/dL LAB CHEMISTRY METHOD 03/19/2025 11:15 AM [facility] Bilirubin, Direct 0.1 0.0 - 0.3 mg/dL LAB CHEMISTRY METHOD 03/19/2025 11:15 AM [facility] Bilirubin, Indirect 0.5 0.0 - 1.1 mg/dL LAB CHEMISTRY METHOD 03/19/2025 11:15 AM [facility] ALT (SGPT) 29 10 - 60 unit/L LAB CHEMISTRY METHOD 03/19/2025 11:15 AM [facility] AST (SGOT) 11 10 - 42 unit/L LAB CHEMISTRY METHOD 03/19/2025 11:15 AM [facility] Alkaline Phosphatase 108 42 - 121 unit/L LAB CHEMISTRY METHOD 03/19/2025 11:[address] [facility] Blood Venous blood specimen / Unknown Venipuncture / Unknown 03/19/2025 8:00 AM EDT 03/19/2025 8:00 AM EDT Fina DIMAS LAB BLOOD ORDERABLES Final R esult [facility] [address] [place] [address], [place] [phone] * FIT-DNA (Cologuard) (12/30/2023) [facility] Colorectal Cancer Screening: FIT-DNA (Cologuard) Abstracted, no interpretation Historical Provider MD HEALTH MAINTENANCE Final Result from Last 3 Months or Most Recently Relevant to Health Maintenance Insurance [facility] MEDICARE MEDICAID - [place] Advance Directives Documents on File Type Date Recorded Patient Machine Feeder Expl anation Health Care Decision (hx) 01/26/2018 [...] (hx) 01/26/2018 [facility] [place] DIRECTIVE Care Teams Education Diagnostician Relationship Specialty Start Date End Date Erlinda Sheets MD [address] [place] [address] [address] [facility] [place] [address] PCP - General 07/05/23
--- OUTSIDE RECORDS SUMMARY | 2025-05-30 17:00 | XMS_ITS | Clinical Summary ---
Author Organization [facility] Address [address] [place] [address] Care Team Providers Care Carton Stapler Name Role Phone Erlinda Sheets MD Primary Care Provider [phone] Allergies Active Allergy Reactions Criticality Noted Date [...] of 2) 2015 COVID-19 Vaccine (5 - 2024- season) 2025 01/25/2022, 05/09/2021, 12/20/2020, Additional history exists Influenza Vaccine (#1) 2025 RSV Adult > 60+ Yrs or (1 - 1-dose 75+ series) 2040 Hepatitis B Vaccines Aged Out No long er eligible based on patient's age to complete this topic RSV Ped < 20 months Aged Out No longe r eligible based on patient's age to complete this topic Care Teams Carton Stapler Relationship Specialty Start Date End Date Erlinda Sheets MD [address] [place] [address] [address] [facility] [place] [address] PCP - General Internal Medicine 07/05/23
== END 2025-05-31 17:07 | disposition home or self-care (01) ==
LOC: HO.HMCH 15:51
PROVIDERS: PCP Internal Medicine; Visit Provider Internal Medicine
DX: U07.1 COVID-19 (principal)

== ENCOUNTER 2025-07-12 16:40 | Outpatient (AMB) | payer OTHER, SELFPAY ==
--- OUTSIDE RECORDS SUMMARY | 2024-06-25 08:20 | XMS_ITS | Encounter Summary ---
Author Organization [facility] [place] [address] Care Team Providers Care Superintendent [employer] Name Role Phone Erlinda Sheets MD Primary Care Provider [phone] Encounter Details Date Type Department Care Team (Late st Contact Info) Description 06/25/2024 8:20 AM EDT Hospital Encounter TH HISTORIC ENCOUNTERS EASTERN CONVERSION ONLY Fina Tsang PA [address] [place] [phone] Social History Tobacco Use Types Packs/Day Years [...] JUDIE Kay - 06/25/2024 8:30 AM EDT [facility] Cc: MS [...] event since he was last seen in [facility]. Denies changes in gait or [...] 6 months along with lab monitoring per [facility] protocol. - Brain and cervical spine [...] 30 minutes. The majority of the actual [id number] visit was spent counseling the patient with respect to the current neurological picture. Fina Tsang PA-C documented in this encounter Plan of Treatment Upcoming Encounters Date Type Department Care Team (Late st Contact Info) Description 09/06/2025 8:00 AM EST Appointment [facility] [place] Outpatient Rehabilititation - [address] [phone] 09/06/2025 8:00 AM EST Office Visit [address] [place] [address] Fina Tsang PA [address] [place] [phone] documented as of this encounter Visit Diagnoses Not on filedocumented in this encounter Care Teams Superintendent [employer] Relationship Specialty Start Date End Date Erlinda Sheets MD [address] [place] [address] [address] [facility] [place] [address] PCP - General 07/05/23 documented as of this encounter
--- NOTE | 2025-07-12 16:41 | A.OFFPC_ITS ---
Intake Visit Reasons: COVID Pos Allergies lisinopril (LISINOPRIL) Allergy (Mild, Verified 07/12/25 16:42) SCRATCHY THROAT teriflunomide Allergy (Mild, Verified 07/12/25 16:42) Rash Medication List - Last Reconciled 07/12/25 by Erlinda Sheets MD [ADULT DIAPERS XL As directed] atorvastatin 40 mg PO DAILY bupropion HCl XL 150 mg PO QAM cholecalciferol (vitamin D3) 4,000 units PO DAILY citalopram 40 mg PO DAILY empagliflozin (Jardiance) 10 mg PO DAILY hydrocortisone 2.5% (Proctosol HC) 1 appl [place] BID-QID PRN losartan 25 mg PO DAILY metformin 500 mg PO BID mirtazapine 7.5 mg PO BEDTIME nirmatrelvir-ritonavir 150 mg (10)- 100 mg (10) (Paxlovid) PO PER PKG DIR nirmatrelvit 150 mg with Ritonavir 100 mg BID 5 days ocrelizumab (Ocrevus) 600 mg IV [id number] Tobacco use date assessed: 05/30/25 Dental Screening Dental Screen Date: 05/30/25 HPI COVID Pos HPI Details 12 day cruise and sore throat, BENITO , myal heather, tiredness, tested yesterday, patient came back from a cruise. [facility] Medical History Sleep difficulties Snoring Excessive daytime sleepiness Tinnitus Colon cancer screening Esophageal bleed, non-variceal Surgical History No pertinent past surgical history Social History Housing: House Alcohol intake: never Patient Tobacco Use Status: Never used Tobacco Tobacco use type: Cigarette e-Cigarette/Vaping Use: Never Used Second Hand Smoke Exposure: No service: No Current occupational status: retired and disabled Cognitive needs: No Hearing needs: No Vision needs: Yes (Glasses) Questionnaire Thrive Questionnaire Date Thrive assessed: 09/27/24 NISHA-7 AMB Questionnaire NISHA-7 Date NISHA - 7 assessed: 10/04/24 Source: Developed by Drs. Esvin Roman, Denise ZarateNam and colleagues, with an educational jose francisco from [employer] Physical exam (Primary Care) Tobacco/Smoking Status: Tobacco use Status Tobacco use date assessed 05/30/25 07/12/25 16:41 Patient Tobacco Use Status Never used Tobacco 07/12/25 16:41 Tobacco use type Cigarette 07/12/25 16:41 e-Cigarette/Vaping Use Never Used 07/12/25 16:41 Thrive Assessment: Date of Thrive Assessment Date Thrive assessed 09/27/24 07/12/25 16:41 Telehealth Telehealth Telehealth Platform: Telephone Location of provider rendering services: practice address Location of patient: address on file Patient Identification confirmed using: Name, : Yes Telehealth method: voice only Patient verbally consented to treatment: Yes Patient verbally consented to billing insurance company: Yes Patient informed of any privacy concerns related to visit: Yes Minutes spent on Phone/Video with Pt.: 15 Coding Level of Care Code Tele Est Pt Level 3 (17349) Diagnoses COVID-19 virus infection U07.1 Assessment & Plan Assessment & Plan (1) COVID-19 virus infection: Comment: 05/2023, May, June Code(s): U07.1 - COVID-19 Category: Medical Plan: For the sore throat can take Cepacol lozenges, discussed about Delsym to help with dry cough so she can rest and advised to increase oral fluids. Patient also can take Tylenol for chills and fever. Antiviral sent in. Plan History of Present Illness The patient is a 60-year-old obese male presenting for a telehealth evaluation for a COVID-19 infection. He reports that after returning from a 12-day cruise yesterday, he developed a sore throat, headaches, and tiredness. A home COVID-19 test performed last night was positive. The patient also reports a cough. The patient's past medical history is significant for otosclerosis, diabetes mellitus, hypertension, hypercholesterolemia, and renal insufficiency. This is his third episode of COVID-19 infection. His last renal function panel showed a creatinine of 1.57 and a GFR of 0.5. The patient was last seen in May 2025. Review of Systems - Constitutional: Reports fatigue. - HEENT: Reports sore throat and headaches. - Respiratory: Reports a cough. Plan Patient was informed and verbally consented to the use of an ambient scribe for clinic note documentation during this visit. 1. Covid-19 Infection The patient is a 60-year-old male with multiple comorbidities who tested positive for COVID-19, presenting with a sore throat, headache, fatigue, and cough. A 5-day course of antiviral medication will be prescribed with a dose adjustment due to his renal insufficiency. The patient was instructed to hold his cholesterol medication while taking the antiviral. He was also advised to maintain adequate hydration. The patient declined any new medication for his cough. The prescription will be sent to [facility] on [address]. 2. Renal Insufficiency The patient has a history of renal insufficiency, with a last documented creatinine of 1.57 and GFR of 0.5. Due to his impaired renal function, the dose of the antiviral medication for his COVID-19 infection has been adjusted. Discussion Notes I discussed with the patient that due to his kidney numbers being on the higher side, he would receive a different, adjusted dosing for the medication. I confirmed this is his third time taking this medication. I instructed him to hold his cholesterol medication while taking the 5-day course of the new prescription. I emphasized the importance of drinking plenty of fluids, especially since he has another cruise planned in 8 days. I offered medication for his cough, but he declined. I advised him to start the prescribed medication as soon as possible. Patient Instructions - You have tested positive for COVID-19. - A 5-day prescription for an antiviral medication will be sent to your pharmacy, [facility] on [address]. - Please start taking this medication as soon as possible. - Due to your kidney condition, you are receiving a special dose of this medicine. - Do not take your cholesterol medication while you are taking this new medicine for COVID-19. - Make sure to drink plenty of fluids like water. Medications: New nirmatrelvir-ritonavir 150 mg (10)- 100 mg (10) (Paxlovid) PO PER PKG DIR nirmatrelvit 150 mg with Ritonavir 100 mg BID 20 tabs 0RF 5 days U07.1 - COVID- 19 Discontinued nirmatrelvir-ritonavir 150 mg (10)- 100 mg (10) (Paxlovid) Discontinued Reason: Patient Completed Course PO PER PKG DIR nirmatrelvit 150 mg with Ritonavir 100 mg BID 5 days 20 tabs 0RF U07.1 - COVID-19
--- OUTSIDE RECORDS SUMMARY | 2025-07-12 16:42 | XMS_ITS | Clinical Summary ---
Author Organization 175 [facility] Address [address] [place] [address] Phone Care Team Providers Care Air Battle Manager Name Role Phone Erlinda Sheets MD Primary Care Provider [phone] Allergies Active Allergy Reactions Criticality Noted Date [...] crush, chew, or split. 30 each 2 02/19/2025 Active mirtazapine (REMERON) 7.5 mg tablet Take 1 tablet (7.5 mg total) by mouth at bedtime. 90 each 1 03/12/2025 Active losartan (COZAAR) 25 mg tablet Take 1 tablet (25 mg total) by mouth 1 (one) time each day. 02/13/2025 Active citalopram (CeleXA) 40 mg tablet Take 1 tablet (40 mg total) by mouth 1 (one) time each day. 30 each 5 05/02/2025 Active Active Problems Problem Noted Date Diagnosed Date Multiple sclerosis 02/17/2021 Depression 12/27/2019 Diabetes ([facility], [facility] [place]) 12/27/2019 Fatigue 12/27/2019 HLD (hyperlipidemia) 12/27/2019 Immunizations Immunization Administration Dates Next Due Moderna SARS-CoV-2 COVID-19, mRNA, LNP-S, preservative free 01/25/2022,05/09/2021,12/20/2020,2020 Surgical History Surgery Date Site/Laterality Comments NO PAST SURGERIES PROCEDURE:NO PAST SURGERIES Medical History Medical History Date Comments Depression DX:Depression Encephalopathy DX:Encephalopath y Hypertension DX:Hypertension Multiple sclerosis DX:Multiple s clerosis (HCC) Cervical myelopathy ([facility], [facility] V28) DX:Cervical myelopathy (HCC) Pseudobulbar affect DX:Pseudobul bar affect Diabetes mellitus ([facility] [place], [facility] V28) DX:Diabetes mellitus (HCC) Family History Medical [...] Info) Description 09/06/2025 8:00 AM EST Appointment [facility] [place] [address] [place] [phone] 09/06/2025 8:00 AM EST Office Visit [facility] [place] [address] [facility] [address] [place] [phone] Fina Tsang, [address] [phone] Health Maintenance Due Date Last Done Comments [...] Date/Time Associated Diagnosis Comments CREATININE, SERUM Routine 03/19/2025 8:0 0 AM EDT Multiple sclerosis ([facility] V24, [facility] V28) Encounter for therapeutic drug monitoring FIT-DNA Routine 12/30/2023 from Last 3 Months or Most Recently Relevant to Health Maintenance Results * (ABNORMAL) Creatinine (03/19/2025 8:00 AM EDT) Creatinine 1.76(H) 0.70 - 1.30 mg/dL LAB CHEMISTRY METHOD 03/19/2025 10:44 AM EDT [facility] eGFR 44(L) >=60 mL/min/1. 73m2 LAB CHEMISTRY METHOD 03/19/2025 10:44 AM EDT [facility] Comment:Calculation based on the Chronic Kidney Disease Epidemiology Collaboration (CKD-EPI) equation refit without adjustment for race. Blood Venous blood specimen / Unknown Venipuncture / Unknown 03/19/2025 8:00 AM EDT 03/19/2025 8:00 AM EDT Fina DIMAS LAB BLOOD ORDERABLES Final R esult [facility] [address] [place] [address], * FIT-DNA (Cologuard) (12/30/2023) [facility] Colorectal Cancer Screening: FIT-DNA (Cologuard) Abstracted, no interpretation Historical Provider MD HEALTH MAINTENANCE Final Result from Last 3 Months or Most Recently Relevant to Health Maintenance Insurance [employer] [place] [address] MEDICAID - [place] Advance Directives Documents on File Type Date Recorded Patient Orthopedic Brace Maker Expl anation Health Care Decision (hx) 01/26/2018 [...] (hx) 01/26/2018 AD SANTA DIRECTIVE Care Teams Air Battle Manager Relationship Specialty Start Date End Date Erlinda Sheets MD [address] [place] [address] [address] [facility] [place] [address] PCP - General 07/05/23
--- OUTSIDE RECORDS SUMMARY | 2025-07-12 16:43 | XMS_ITS | Clinical Summary ---
Author Organization [facility] Address [address] [place] [address] Care Team Providers Care Reimbursement Counselor Name Role Phone Erlinda Sheets MD Primary Care Provider [phone] Allergies Active Allergy Reactions Criticality Noted Date [...] age to complete this topic Care Teams Reimbursement Counselor Relationship Specialty Start Date End Date Erlinda Sheets MD [address] [place] [address] [address] [facility] [place] [address] PCP - General Internal Medicine 07/05/23
== END 2025-07-12 16:59 | disposition home or self-care (01) ==
LOC: HO.HMCH 16:40
PROVIDERS: PCP Internal Medicine; Visit Provider Internal Medicine
DX: U07.1 COVID-19 (principal)

== ENCOUNTER 2025-08-05 09:50 | Outpatient (AMB) | payer OTHER, SELFPAY ==
--- OUTSIDE RECORDS SUMMARY | 2024-06-25 07:20 | XMS_ITS | Encounter Summary ---
Author Organization [facility] [place] [address] Care Team Providers Care Tile Finisher Name Role Phone Erlinda Sheets MD Primary Care Provider [phone] Encounter Details Date Type Department Care Team (Late st Contact Info) Description 06/25/2024 8:20 AM EDT Hospital Encounter TH HISTORIC ENCOUNTERS EASTERN CONVERSION ONLY Fina Tsang PA [address] [place] [phone] Social History Tobacco Use Types Packs/Day Years Used Date Smoking Tobacco: Never Smokeless Tobacco: Never Alcohol Use Standard Drinks/Week Comments Yes 0 (1 standard drink = 0.6 oz pur e alcohol) Sex and Gender Information Value Date Recorded Sex Assigned at Not on file Legal Sex Male 1:04 AM EST Gender Identity Not on file Sexual Orientation Not on file documented as of this encounter Last Filed Vital Signs Vital Sign Reading Time Taken Comments Blood Pressure 130/85 06/25/2024 8:32 AM EDT Sitting Left arm Pulse 87 06/25/2024 8:32 AM EDT Temperature - - Respiratory Rate - - Oxygen Saturation - - Inhaled Oxygen Concentration - - Weight 89.3 kg (196 lb 12.8 oz) 06/25/2024 8:32 AM EDT Height 172.7 cm (5' 8 ) 06/25/2024 8:32 AM EDT Body Mass Index 29.92 06/25/2024 8:32 AM EDT documented in this encounter Progress Notes * JUDIE Kay - 06/25/2024 8:30 AM EDT [facility] Cc: MS HPI: Patient is a 59 y.o. year old male who presents for follow up visit regarding ongoing management ofmultiple sclerosis. Disease Summary Date of onset/Initial symptom presentation:1997 /tingling in Rt leg /double vision Date of diagnosis of MS: 1998 Disease course at onset: relapsing Current disease course: relapsing Last MS exacerbation: Previous disease therapies(reason for switch): Avonex, Rebif, Aubagio (rash), Gilenya, Tecfidera Current disease therapy: Ocrevus (2018) Most recent MRI Brain: 09/2023 (stable) Most recent MRI Cervical spine: 09/2023 (stable C2 lesion) Most recent MRI Thoracic spine: not performed CSF: Performed in 1998, results unknown JCV serology result and date: MS mimickers: not performed/available EDSS : 6.0 (10/2022) Interval history Patient returns for follow-up visit. He continues to Ocrevus for disease modifying therapy and nextinfusion is scheduled for 09/17/2024. He denies new neurological symptoms suggestive of demyelinating event since he was last seen in [facility]. Denies changes in gait or balance, bowel or bladder function. He has been using his CPAP more regularly and is getting more comfortable with this. Notes that he had both COVID and flu vaccines last week and tolerated well. He denies any recent illness or infection. Last visit history reviewed: Probable no so I never done that I do not know what [place] does think she has Order treatment she she has her own order she said he does not I do not know that yeah yeah I am not sure No new neurological symptom concerning for demyelination since last visit Patient still on Ocrevus tolerating it well is getting his infusion done today Since last visit fatigue is main concern for patient , he has difficulty sleeping , he sleep 2 hrs , he is evaluated by sleep study , and he will be started on a CPAP, discussed with the patient we will go ahead with a CPAP and this should help with the fatigue if he is still experiencing fatigue will evaluate for starting medication targeting 50 no change in his urinary symptomsHe wake up to urinate 2 times at night. He has been having falls no serious injuries discussed with the patient extensively the role of physical therapy to help with gait and balance will hold off for now and start home exercises and we can reassess later He denies changes in bowel/bladder function.His dizzness has resolved He denies recent illness/infection. Review of Systems Constitutional: Positive for fatigue. Musculoskeletal: Positive for gait problem. Psychiatric/Behavioral: Positive for dysphoric mood. All other systems reviewed and are negative. Patient Active Problem List Diagnosis SNOMED CT(R) ??? Fatigue FATIGUE ??? Depression DEPRESSIVE DISORDER ??? Diabetes (HCC) DIABETES MELLITUS ??? HLD (hyperlipidemia) HYPERLIPIDEMIA ??? Multiple sclerosis (HCC) MULTIPLE SCLEROSIS Current Outpatient Medications: ??? atorvastatin (LIPITOR) tablet 40 mg, Take 1 tablet (40 mg total) by mouth daily., Disp: , Rfl: ??? buPROPion (WELLBUTRIN XL) 150 MG 24 hr tablet, TAKE 1 TABLET BY MOUTH EVERY DAY, Disp: 90 tablet, Rfl: 1 ??? citalopram (CeleXA) 40 MG tablet, TAKE 1 TABLET BY MOUTH EVERY DAY, Disp: 90 tablet, Rfl: 3 ??? irbesartan-hydroCHLOROthiazide (AVALIDE) 150-12.5 MG per tablet, Take 1 tablet by mouth daily.,Disp: , Rfl: ??? metFORMIN (GLUCOPHAGE) tablet 1000 mg, Take 1 tablet (1,000 mg total) by mouth 2 (two) times a day with meals., Disp: , Rfl: ??? vitamin D3 (VITAMIN D3) 25 MCG (1000 UT) tablet, Take 1 tablet (1,000 Units total) by mouth daily., Disp: , Rfl: Neuro Exam BP 130/85 (BP Location: Left arm, Patient Position: Sitting) Pulse 87 Temp 96.9 ??F (36.1 ??C) (Temporal) Ht 5' 8 (1.727 m) Wt 89.3 kg (196 lb 12.8 oz) BMI 29.92 kg/m?? Body mass index is 29.92 kg/m??. General: A&Ox3 Cranial Nerves: PERRL, EOMI without nystagmus, facial strength symmetric, no facial droop, tongue protrusion midline, speech clear, shoulder shrug symmetric Motor: strength 5/5 bilateral UE & LE, slight weakness Rt ankle dorsiflexor Sensory: light touch, and decrease vibratory sense distally Reflexes: 2+/4+ bilateral biceps, 2+/4+ bilateral patellar Cerebellar: FTN without dysmetria or ataxia bilaterally, decreased Augustus bilaterally, R worse than L, + dysdiadochokinesia bilaterally, positive Romberg Gait: circumducts R leg. Wearing AFO and using cane. Ataxic tandem. 25 foot timed walk: 7.3, 7.2 seconds (9.0, 8.4 w cane) A/P: Multiple Sclerosis: Jimmie Link is a 59 year-old male with relapsing MS treated with Ocrevus for disease-modifying therapy. Remains stable overall from an MS perspective and this will be continued. A. Disease modifying therapy and diagnostic plan: -Continue Ocrevus 600 mg IV q 6 months along with lab monitoring per [facility] protocol. - Brain and cervical spine MRIs with and without contrast will be performed on an annual basis (duein September 2024) B. Symptomatic therapy plan: Gait difficulty/imbalance: Continue PT home exercises, use of right AFO and cane discussed fall precautions extensively fatigue: Patient continues to improve adherence with CPAP for treatment of sleep apnea. Depression/irritable mood: continue citalopram 40 mg daily and Wellbutrin XL 150 mg daily as well as weekly sessions with his new therapist Patient was encouraged to call the office with any questions or concerns. Follow up in 4 months or sooner PRN with any new symptoms. The patient and I discussed the clinical picture during today's appointment. Additional time was spent prior to the actual appointment reviewing records, lab values and imaging results and preparing documentation for today's visit. There was also time spent following the in person visit documenting, arranging for further diagnostic testing and follow-up appointments. The entire time spent in thisprocess was greater than 30 minutes. The majority of the actual rqzb-gx-rqqv visit was spent counseling the patient with respect to the current neurological picture. Fina Tsang PA-C documented in this encounter Plan of Treatment Upcoming Encounters Date Type Department Care Team (Late st Contact Info) Description 09/06/2025 8:00 AM EST Appointment [facility] [place] Outpatient Rehabilititation - [address] [phone] 09/06/2025 8:00 AM EST Office Visit [address] [place] [address] Fina Tsang PA [address] [place] [phone] documented as of this encounter Visit Diagnoses Not on filedocumented in this encounter Care Teams Tile Finisher Relationship Specialty Start Date End Date Erlinda Sheets MD [address] [place] [address] [address] [facility] [place] [address] PCP - General 07/05/23 documented as of this encounter
--- NOTE | 2025-08-05 09:53 | MHC.OFFVIS ---
Vital Signs 08/05/25 09:54 Height 5 ft 8 in Weight 203 lb 8 oz BMI 30.9 BP 110/74 Blood Pressure Location Lt brachial Position Sitting Pulse 90 Pulse Source Pulse Oximeter Pulse Oximetry (%) 97 Oxygen Delivery Method Room Air Intake Visit Reasons: Follow Up Intake Note: Patient presents follow up HUNTER. Compliance in chart(72/90days, >=4hrs-57%, Average Usage-4hr 55min, Pressure-10cm, Med Leaks-0.0, AHI-3.6). Accompanied by: Self / Same As Patient Allergies lisinopril (LISINOPRIL) Allergy (Mild, Verified 08/05/25 09:56) SCRATCHY THROAT teriflunomide Allergy (Mild, Verified 08/05/25 09:56) Rash HPI Comments Details: 60 y/o Right handed male with h/o of MS follows up for Sleep Apnea. HUNTER Compliance Report 04/2025 - 07/2025 reviewed with pt. Avg use is 72/90 days and >4 hours is 57%. Avg use >4 hours is 55min. Press are [id number] and leaks are 0. AHI is 3.6/hr. He washes the mask, rinses hoses, changes filters as needed. Interval changes in medical history: He has chronic near falls due to light headedness, dizziness, vertigo for 6months+, denies injuries. He thinks it is due to dehydration. He does use a cane sometimes as he forgets. Apr 2025 Covid 5 days of sickness treated with Paxlovid and unable to tolerate cpap use. Jun 2025 Covid 5 days of sickness treated with Paxlovid, and unable to tolerate cpap use. He Has refreshing sleep when he uses the mask, wakes up feeling refreshed. He uses the Airfit N20 full face mask denies leaks, pressures are good. Pt describes his initial MS s/s as right calf tingling, denies diplopia. However, he continues to have right foot drop, with near falls more so when not wearing RLE AFO, and fatigue has now improved. He is f/b [facility], has infusions 2x /year, next infusion is Aug 2025 and will follow up with MRIs annually. No difficulty falling asleep and staying asleep- has 3 arousal per night, denies snoring, has nocturnal restlessness, tosses and turns. Denies auditory / visual hallucinations, sleep paralysis, parasomnias. Denies usual leg cramps, spasticity. Seen by speech and hearing for cognitive therapy, due to forgetfulness. Plays cards with friends and family weekly, has a good support network. [facility] Medical History Sleep difficulties Snoring Excessive daytime sleepiness Tinnitus Colon cancer screening Esophageal bleed, non-variceal Surgical History No pertinent past surgical history Social History Housing: House Alcohol intake: never Patient Tobacco Use Status: Never used Tobacco Tobacco use type: Cigarette e-Cigarette/Vaping Use: Never Used Second Hand Smoke Exposure: No service: No Current occupational status: retired and disabled Cognitive needs: No Hearing needs: No Vision needs: Yes (Glasses) Physical Exam Vital Signs: Last Vital Signs Pulse 90 08/05/25 09:54 BP 110/74 08/05/25 09:54 Pulse Ox 97 08/05/25 09:54 Oxygen Delivery Method Room Air 08/05/25 09:54 BMI result Body Mass Index 30.9 Const General: cooperative, comfortable and no acute distress Nutritional Appearance: average body habitus and overweight Orientation/consciousness: patient oriented x3 HEENT Face and sinus: Yes face symmetric Teeth and gingiva: other (mallampti score is 4) Eyes Pupils: Equal, round and reactive pupils present Neck Neck: Yes full ROM Resp Effort & Inspection: normal respiratory effort and able to speak in complete sentences Neuro Other: r. foot lagsnot wearing his rle afos today, ambulates with a cane, gait is off balance, leans to the left, r. foot points outward General: patient oriented x3 and moves all extremities Cranial nerves: Yes Equal, round and reactive pupils present, Yes Normal accommodation reflex present, Yes Normal facial strength present, Yes Midline tongue present, Yes Ability to bilaterally rotate head present and Yes Ability to bilaterally elevate shoulders present Cognition (Neuro): normal cognition Gait exam (Neuro): Other gait observations present (uses a cane.) Motor exam (neuro): Normal motor muscle tone present throughout and Abnormal motor strength present Deep tendon reflexes (DTR's): Right triceps reflex intensity grade: 2+, Left triceps reflex intensity grade: 2+, Rt Biceps (C5, C6): 2+, Left biceps reflex intensity grade: 2+, Right brachioradialis reflex intensity grade: 2+, Left brachioradialis reflex intensity grade: 2+, Right patellar reflex intensity grade: 2+ and Left patellar reflex intensity grade: 2+ Coordination: [id number] test normal Psych Appearance: grossly normal Speech and movement: Normal speech and movement present Thought process: Normal thought process present Thought content: Normal thought content present Insight: Good insight present (Psych) Judgement: Good judgement present (Psych) Results Reviewed Results Reviewed: HUNTER Compliance Report 04/2025 - 07/2025 reviewed with pt. Avg use is 72/90 days and >4 hours is 57%. Avg use >4 hours is 55min. Press are [id number] and leaks are 0. AHI is 3.6/hr. He washes the mask, rinses hoses, changes filters as needed. Assessment & Plan Assessment & Plan (1) HUNTER on CPAP: Code(s): G47.33 - Obstructive sleep apnea (adult) (pediatric) Category: Medical (2) Obstructive sleep apnea: Comment: cannot tolerate CPAP (09/2024 using now) Code(s): G47.33 - Obstructive sleep apnea (adult) (pediatric) Category: Medical (3) Sleep difficulties: Code(s): G47.9 - Sleep disorder, unspecified Category: Medical Plan HUNTER compliant on cpap therapy, feels well rested when using his cpap. Compliance is reviewed. Gait and balance, continue wearing r. lower ext AFO and daily to avoid near falls, use a cane when ambulating long/ short distances. MS symptoms continue to f/u with the [facility] for semi- annual infusion treatments. DASH Diet for Hypertension, per [place] [employer] #1 modifiable risk factor to prevent heart attacks is blood pressure control. Refer to: www.https//mydash.diet Mediterranean Diet- Cardiovascular Risk reduction, weight loss, and control Type 2 diabetes mellitus. Blood Glucose Monitoring, A1C control for prevention of diabetes, nephropathy, neuropathy, retinopathy. F/U in 6 months. Patient Instructions: Please complete the following fasting labs to rule out deficiencies. CBC/CMP/ B12/ Vit D/ TSH/ Homocysteine and MMA/ Ferritin. Labs reviewed with pt. Coding Level of Care Code Est Pt Level 4 (79942) Diagnoses HUNTER on CPAP G47.33 Obstructive sleep apnea G47.33 Sleep difficulties G47.9
[2025-08-05 09:54] VITALS: BP 110/74; PULSE 90; O2SAT 97; BMI 30.9
--- OUTSIDE RECORDS SUMMARY | 2025-08-05 11:39 | XMS_ITS | Clinical Summary ---
Author Organization [facility] Address [address] [place] [address] Phone Care Team Providers Care Tombstone Carver Name Role Phone Erlinda Sheets MD Primary Care Provider [phone] Allergies Active Allergy Reactions Criticality Noted Date [...] Date Multiple sclerosis 02/17/2021 Depression 12/27/2019 Diabetes ([facility]24, [facility] V28) 12/27/2019 Fatigue 12/27/2019 HLD (hyperlipidemia) 12/27/2019 Immunizations Immunization Administration Dates Next Due Moderna SARS-CoV-2 COVID-19, mRNA, LNP-S, preservative free 01/25/2022,05/09/2021,12/20/2020,2020 Surgical History Surgery Date Site/Laterality Comments NO PAST SURGERIES PROCEDURE:NO PAST SURGERIES Medical History Medical History Date Comments Depression DX:Depression Encephalopathy DX:Encephalopath y Hypertension DX:Hypertension Multiple sclerosis DX:Multiple s clerosis (HCC) Cervical myelopathy ([facility] V24, [facility] V28) DX:Cervical myelopathy (HCC) Pseudobulbar affect DX:Pseudobul bar affect Diabetes mellitus ([facility] V24, [facility] V28) DX:Diabetes mellitus (HCC) Family History Medical [...] Appointment [facility] - [place] [address] [place] [phone] 09/06/2025 8:00 AM EST Office Visit [facility] [place] [address] [facility] [address] [place] [phone] Fina Tsang, [address] [phone] Health Maintenance Due Date Last Done Comments Diabetes: Annual Foot Exam 1975 Diabetes: Annual Retina Eye Exam 1975 Cholesterol Screening (Lipid Panel) 08/20/2022 HIV Screening 08/20/2022 Hepatitis C Screening 08/20/2022 Medicare Annual Wellness Visit 08/20/2022 Social Influencers of Health Screening 08/20/2022 Diabetes: Annual Urine Albumin-Creatinine Ratio (uACR) 09/10/2022 Diabetes: Blood Sugar Control Test (HGBA1C) 09/10/2022 Depression Screening 09/12/2024 COVID-19 Vaccine ( season) 2025 06/18/2024, 10/08/2023, 09/29/2022, Additional history exists Influenza Vaccine (#1) 2025 , 07/05/2023, 07/29/2022, [...] series) 2040 Zoster Vaccines Completed 12/10/2023, 10/08/2023 HIB Vaccines Aged Out No longer eligi [...] 03/19/2025 8:0 0 AM EDT Multiple sclerosis ([facility] V24, [facility] V28) Encounter for therapeutic drug monitoring FIT-DNA [...] DIMAS LAB BLOOD ORDERABLES Final R esult [facility] [address] [place] [address], * FIT-DNA (Cologuard) (12/30/2023) [facility] Colorectal Cancer Screening: FIT-DNA (Cologuard) Abstracted, no interpretation Historical Provider MD HEALTH MAINTENANCE Final Result from Last 3 Months or Most Recently Relevant to Health Maintenance Insurance [facility] MEDICARE MEDICAID - [place] Advance Directives Documents on File Type Date Recorded Patient Tailor'S Aide Expl anation Health Care Decision (hx) 01/26/2018 [...] (hx) 01/26/2018 AD SANTA DIRECTIVE Care Teams Tombstone Carver Relationship Specialty Start Date End Date Erlinda Sheets MD [address] [place] [address] [address] [facility] [place] [address] PCP - General 07/05/23
--- OUTSIDE RECORDS SUMMARY | 2025-08-05 11:39 | XMS_ITS | Clinical Summary ---
Author Organization [facility] Address [address] [place] [address] Care Team Providers Care Parimutuel Ticket Seller Name Role Phone Erlinda Sheets MD Primary Care Provider [phone] Allergies Active Allergy Reactions Criticality Noted Date [...] age to complete this topic Care Teams Parimutuel Ticket Seller Relationship Specialty Start Date End Date Erlinda Sheets MD [address] [place] [address] [address] [facility] [place] [address] PCP - General Internal Medicine 07/05/23
== END 2025-08-05 10:29 | disposition home or self-care (01) ==
LOC: HO.HSMS 09:51
PROVIDERS: PCP Internal Medicine; Visit Provider Physician Assistant Medical
DX: G47.33 Obstructive sleep apnea (adult) (pediatric) (principal); G47.9 Sleep disorder, unspecified
CPT/HCPCS: 99214